=== PATIENT | female | born 1935 | race Caucasian/White ===

== ENCOUNTER 2022-10-06 10:55 | Outpatient (AMB) | payer MEDICARE, OTHER, SELFPAY ==
--- NOTE | 2022-10-06 11:07 | MHC.OFFVIS ---
Intake Vital Signs 10/06/22 11:13 Height 5 ft 3.5 in Weight 122 lb BMI 21.3 Intake Visit Reasons: New Pt - Left hip pain Intake Note: Hannah an 86 year old female who presents today as a new patient for an evaluation of left hip pain. Patient reports pain has been present for about a year that has been getting worse the past 6 months. She has constant pain that radiates into her groin and down the lateral aspect of her left leg. She denies any fevers or chills. Finds it difficult to do AODL such as stair use and getting in and out of car. Denies injury. No relief with Tylenol. No previous tx. Allergies codeine Allergy (Unknown, Verified 10/06/22 11:49) Unknown raloxifene [Evista] Allergy (Unknown, Verified 10/06/22 11:49) Unknown Hydrocodone Bitartrate Allergy (Unknown, Uncoded 10/06/22 11:49) Unknown Codeine Phosphate Adverse Reaction (Unknown, Uncoded 10/06/22 11:49) nausea Medication List - Last Reconciled 10/06/22 by Tre Gamez MD apixaban (Eliquis) mg PO atorvastatin mg PO diclofenac sodium 1% grams topical BID losartan 50 mg PO DAILY omeprazole 20 mg PO DAILY verapamil ER 180 mg PO DAILY PFS Social History (Updated 10/06/22 @ 11:21 by Ena Metz Gadiel) Patient Tobacco Use Status: Never used Tobacco Current occupational status: retired Physical Exam Vital Signs: BMI result Body Mass Index 21.3 Const Other: Well-nourished well-developed very friendly female awake alert and oriented x3 in no acute distress Extrem Other: Bilateral lower extremity examination shows good capillary refill, no skin lesions noted, normal sensation light touch Left hip examination shows mild to moderate discomfort with range of motion, tenderness over her greater trochanteric bursa, no overlying skin lesions Office Procedures Joint Injection/Drain Joint Injection/Drain Primary Site: other (Left hip greater trochanteric bursa) Prep: site was prepped using aseptic technique Injected: 40 mg of, Kenalog and 1% plain lidocaine Procedure: The patient tolerated the procedure well Coding 03612 - Large joint Procedure code (CPT) selection complete Results Reviewed Results Reviewed: X-rays of the patient's left hip taken today show severe joint space narrowing, subchondral sclerosis, osteophyte formation, no acute bony abnormalities Assessment & Plan Assessment & Plan (1) Trochanteric bursitis, left hip: Code(s): M70.62 - Trochanteric bursitis, left hip Plan: Ms. Damian presents with left hip pain due to degenerative joint disease as well as greater trochanteric bursitis. I had a lengthy discussion with the patient regarding the treatment options. She wishes to hold off on total hip replacement surgery for as long as possible. I agree with this plan. We did discuss the risks and benefits of a cortisone injection given into her left hip bursa. The patient wished to proceed. She tolerated the injection well. She will continue with her home exercise program. She will follow up with me on an as-needed basis should her symptoms not plateau at an unacceptable level over the next few months. If she fails continued non operative treatments we will further discuss the risks and benefits of left total hip replacement surgery. Feel free to call me at any time should questions regarding her orthopedic management arise. Thank you very much for asking me to see this very friendly patient. I spent 22 minutes in reviewing the patient's records and imaging studies, seeing the patient and documenting in the medical record. Orders: Orders XR hip LT min 2V Today M25.552 - Pain in left hip AMB Joint Injection/Aspiration Today M70.62 - Trochanteric bursitis, left hip Coding Level of Care Code New Pt Level 2 (73634) Diagnoses Trochanteric bursitis, left hip M70.62 CPT Codes Coding - 67313 Large joint: 28528 - Large joint ([id number])
[2022-10-06 11:13] VITALS: BMI 21.3
== END 2022-10-06 12:14 | disposition home or self-care (01) ==
PROVIDERS: PCP Internal Medicine; Visit Provider Orthopaedic Surgery
DX: M70.62 Trochanteric bursitis, left hip (principal)
CPT/HCPCS: 20610; 99204

== ENCOUNTER 2022-10-06 12:32 | Outpatient (REF) | payer MEDICARE, OTHER, SELFPAY ==
--- NOTE | ~2022-10-06 | XR_ITS ---
EXAMINATION: XR hip LT min 2V CLINICAL INFORMATION: Reason for Exam M25.552 - Pain in left hip COMPARISON: None TECHNIQUE: Two views of the hip. FINDINGS: Chronic appearing fracture of the lateral aspect of the acetabulum. No definite acute fracture or dislocation. Advanced degenerative changes of the hip with complete loss of superolateral joint space and degenerative spurring. Soft tissues are unremarkable. XR/XR hip LT min 2V IMPRESSION: 1. Chronic appearing fracture of the lateral aspect of the acetabulum. No definite acute fracture or dislocation. 2. Advanced degenerative changes of the hip with complete loss of superolateral joint space and degenerative spurring.
== END 2022-10-06 12:33 | disposition home or self-care (01) ==
LOC: HO.HOSX 12:32
PROVIDERS: Visit Provider Orthopaedic Surgery
DX: M70.62 Trochanteric bursitis, left hip (principal)
CPT/HCPCS: 20610; 73502; J3301

== ENCOUNTER 2022-10-20 09:53 | Outpatient (AMB) | payer MEDICARE, OTHER, SELFPAY ==
[2022-10-20 10:21] VITALS: BP 140/76; PULSE 100; TEMP 36.3; O2SAT 100; BMI 22.5
--- NOTE | 2022-10-20 10:21 | MHC.OFFWIV ---
Intake Vital Signs 10/20/22 10:21 Height 5 ft 3 in Weight 127 lb 4 oz BMI 22.5 BP 140/76 H Blood Pressure Location Rt brachial Position Sitting Pulse 100 Pulse Source Pulse Oximeter Temp 97.4 F Temp Source Temporal Artery Scan Pulse Oximetry (%) 100 Oxygen Delivery Method Room Air Intake Visit Reasons: EP, Left lower leg cramping Intake Note: Pt is here c/o lower left leg cramping. Pt states she got a shot in her hip two weeks ago and thinks it may be tied to that. Patient Tobacco Use Status: Never used Tobacco Allergies codeine Allergy (Unknown, Verified 10/20/22 10:48) Unknown raloxifene [Evista] Allergy (Unknown, Verified 10/20/22 10:48) Unknown Hydrocodone Bitartrate Allergy (Unknown, Uncoded 10/20/22 10:48) Unknown Codeine Phosphate Adverse Reaction (Unknown, Uncoded 10/20/22 10:48) nausea Medication List - Last Reconciled 10/20/22 by Surendra Olvera MD apixaban (Eliquis) mg PO atorvastatin mg PO diclofenac sodium 1% grams topical BID losartan 50 mg PO DAILY omeprazole 20 mg PO DAILY verapamil ER 180 mg PO DAILY Do you need a note to return to daycare/school/sports/work: No HPI HPI Comments History of Present Illness Details 86-year-old female presents to the office for a sick visit. Patient is reporting cramps in her left foot for the past 2 weeks. Mostly in the night, around her big toes. Wakes her up from sleep. Around the same time when symptoms started, patient received a steroid injection in her left hip for osteoarthritis. The pain in the hip has resolved. [facility] Social History (Updated 10/06/22 @ 11:21 by AURA Gibson) Patient Tobacco Use Status: Never used Tobacco Current occupational status: retired Physical Exam Vital Signs: Last Vital Signs Temp 97.4 F 10/20/22 10:21 Pulse 100 10/20/22 10:21 BP 140/76 H 10/20/22 10:21 Pulse Ox 100 10/20/22 10:21 Oxygen Delivery Method Room Air 10/20/22 10:21 BMI result Body Mass Index 22.5 Const General: cooperative and healthy appearing Nutritional Appearance: well nourished Orientation/consciousness: patient oriented x3 Limitations: no limitations HEENT Head: Yes normal to inspection Eyes General: appearance normal, both eyes and all related structures Neck Neck: Yes normal visual inspection Chest Chest palpation & inspection: normal palpation of entire chest wall Resp Effort & Inspection: normal respiratory effort Neuro General: patient oriented x3 Assessment & Plan Assessment & Plan (1) Cramping of feet: Code(s): R25.2 - Cramp and spasm Plan: Flexeril added to the regimen. Patient was encouraged to add electrolytes to her fluids. Encouraged her to take magnesium. Coding Level of Care Code New Pt Level 3 (26117) Diagnoses Cramping of feet R25.2
== END 2022-10-20 11:31 | disposition home or self-care (01) ==
PROVIDERS: PCP Internal Medicine; Visit Provider Internal Medicine
DX: R25.2 Cramp and spasm (principal)
CPT/HCPCS: 99203

== ENCOUNTER 2022-10-29 09:33 | Outpatient (AMB) | payer MEDICARE, OTHER, SELFPAY ==
--- NOTE | 2022-10-29 09:54 | MHC.OFFWIV ---
Intake Vital Signs 10/29/22 09:55 Height 5 ft 3 in Weight 128 lb 2 oz BMI 22.7 BP 132/72 Blood Pressure Location Rt brachial Position Sitting Pulse 98 Pulse Source Pulse Oximeter Temp 97.2 F Temp Source Temporal Artery Scan Pulse Oximetry (%) 100 Oxygen Delivery Method Room Air Intake Visit Reasons: EP Leg cramps Intake Note: Pt is here c/o bilateral leg cramps for the past three weeks. Patient Tobacco Use Status: Never used Tobacco Allergies codeine Allergy (Unknown, Verified 10/29/22 09:58) Unknown raloxifene [Evista] Allergy (Unknown, Verified 10/29/22 09:58) Unknown Hydrocodone Bitartrate Allergy (Unknown, Uncoded 10/29/22 09:58) Unknown Codeine Phosphate Adverse Reaction (Unknown, Uncoded 10/29/22 09:58) nausea Do you need a note to return to daycare/school/sports/work: No HPI HPI Comments History of Present Illness Details 86-year-old female that presents for leg cramps. Patient states the past several weeks she has developed leg cramps at night causing her to get up every hour work before his in the go back to sleep. She denies any other symptoms. She was seen and evaluated several days ago for fevers improved prescribed Flexeril which has been helping at night. She is scheduled to see her primary care on the . She is asking for refill prescription to get her to her appointment. [facility] Social History (Updated 10/06/22 @ 11:21 by AURA Gibson) Patient Tobacco Use Status: Never used Tobacco Current occupational status: retired Review of Systems Const All systems reviewed & are unremarkable except as noted in HPI and below Musc Details: Bilateral leg cramping Physical Exam Vital Signs: Last Vital Signs Temp 97.2 F 10/29/22 09:55 Pulse 98 10/29/22 09:55 BP 132/72 10/29/22 09:55 Pulse Ox 100 10/29/22 09:55 Oxygen Delivery Method Room Air 10/29/22 09:55 BMI result Body Mass Index 22.7 Const General: comfortable, no acute distress and alert Extrem Other: lower legs without swelling or edema tenderness Assessment & Plan Assessment & Plan (1) Cramping of feet: Code(s): R25.2 - Cramp and spasm Plan VSS. exam is notable for no lower extremity edema or swelling appreciated no tenderness. Given patient presentation likely suffering from restless legs syndrome. Will have patient discuss this possibility with her primary care upcoming appointment. Will refill prescription. Discharge instructions, follow up and treatment are discussed with patient in my usual fashion. Alternatives in treatment are also discussed. The patient will return for worsening symptoms or as needed. Advised that any labs/imaging ordered will be followed up on and contact made if further treatment needed. Counseled that patient's condition may require further evaluation and/or treatment. Symptoms of concern for worsening disorder discussed in detail in my customary manner. Patient does verbalize understanding of the plan, there are no apparent barriers to communication. The patient is given the opportunity to ask questions and have them answered to his/her satisfaction Medications: New cyclobenzaprine 5 mg PO BEDTIME 13 tabs 0RF R25.2 - Cramp and spasm Coding Level of Care Code Est Pt Level 2 (70320) Diagnoses Cramping of feet R25.2
[2022-10-29 09:55] VITALS: BP 132/72; PULSE 98; TEMP 36.2; O2SAT 100; BMI 22.7
== END 2022-10-29 10:19 | disposition home or self-care (01) ==
PROVIDERS: PCP Internal Medicine; Visit Provider Physician Assistant
DX: R25.2 Cramp and spasm (principal)
CPT/HCPCS: 99212

== ENCOUNTER 2023-01-05 11:03 | Outpatient (AMB) | payer MEDICARE, OTHER, SELFPAY ==
[2023-01-05 11:10] VITALS: BMI 22.7
--- NOTE | 2023-01-05 11:10 | A.OFFVIS_ITS ---
Intake Vital Signs 01/05/23 11:10 Height 5 ft 3 in Weight 128 lb BMI 22.7 Intake Visit Reasons: OV-Left hip injection Intake Note: Hannah 87 yr old female presents today for her follow up visit s/p left hip injection from 10/06/[address] Gamez. States injection lasted for about 2 months and would like to repeat injection today. She was very pleased with the relief she had. She takes Tylenol as needed for discomfort. She denies any weakness in either lower extremity. She denies any fevers or chills. Allergies codeine Allergy (Unknown, Verified 01/05/23 11:13) Unknown raloxifene [Evista] Allergy (Unknown, Verified 01/05/23 11:13) Unknown Hydrocodone Bitartrate Allergy (Unknown, Uncoded 01/05/23 11:13) Unknown Codeine Phosphate Adverse Reaction (Unknown, Uncoded 01/05/23 11:13) nausea Medication List - Last Reconciled 01/05/23 by Tre Gamez MD apixaban (Eliquis) mg PO atorvastatin mg PO cyclobenzaprine 5 mg PO BEDTIME cyclobenzaprine 5 mg PO BEDTIME diclofenac sodium 1% grams topical BID losartan 50 mg PO DAILY omeprazole 20 mg PO DAILY verapamil ER 180 mg PO DAILY [facility] Social History (Updated 10/06/22 @ 11:21 by AURA Gibson) Patient Tobacco Use Status: Never used Tobacco Current occupational status: retired Physical Exam Vital Signs: BMI result Body Mass Index 22.7 Const Other: Well-nourished well-developed very friendly female awake alert and oriented x3 in no acute distress Extrem Other: Bilateral lower extremity examination shows good capillary refill, no skin lesions noted, normal sensation light touch Left hip examination shows slightly decreased range of motion when compared to her right hip, pain with range of motion, tenderness over her bursa, no overlying skin lesions Office Procedures Joint Injection/Drain Joint Injection/Drain Primary Site: other (Left hip greater trochanteric bursa) Prep: site was prepped using aseptic technique Injected: 40 mg of, Kenalog and 1% plain lidocaine Procedure: The patient tolerated the procedure well Coding 47436 - Large joint Procedure code (CPT) selection complete Results Reviewed Results Reviewed: 01/05/23 11:20 Lidocaine HCl 2 % MPF [Xylocaine 2 % MPF] 5 ml .ROUTE .STK-MED ONE Triamcinolone Acetonide [Kenalog-40] 40 mg .ROUTE .STK-MED ONE Assessment & Plan Assessment & Plan (1) Trochanteric bursitis, left hip: Code(s): M70.62 - Trochanteric bursitis, left hip Plan Ms. Damian presents with left hip pain due to degenerative joint disease as well as greater trochanteric bursitis. I had a lengthy discussion with the patient regarding the treatment options. She wishes to hold off on surgery for as long as possible. The risks and benefits of a left hip bursa cortisone injection were discussed at length with the patient. The patient wished to proceed. She tolerated the injection well. She will continue with her home exercise program. She will follow up with me on an as-needed basis should her symptoms not plateau at an unacceptable level over the next few months. Feel free to call me at any time should questions regarding her orthopedic management arise. I spent 22 minutes in reviewing the patient's records and imaging studies, seeing the patient and documenting in the medical record. Orders: Orders AMB Joint Injection/Aspiration Today M70.62 - Trochanteric bursitis, left hip Coding Level of Care Code Est Pt Level 2 (38471) Diagnoses Trochanteric bursitis, left hip M70.62 CPT Codes Coding - 51516 Large joint: 38507 - Large joint ([id number])
== END 2023-01-05 11:45 | disposition home or self-care (01) ==
PROVIDERS: PCP Internal Medicine; Visit Provider Orthopaedic Surgery
DX: M70.62 Trochanteric bursitis, left hip (principal)
CPT/HCPCS: 20610

== ENCOUNTER → 2023-01-05 11:03 | Outpatient (BNVA) | payer MEDICARE, OTHER, SELFPAY | PROVIDERS: PCP Internal Medicine; Visit Provider Orthopaedic Surgery | DX: M70.62 Trochanteric bursitis, left hip (principal) | CPT/HCPCS: 20610; J3301 ==

== ENCOUNTER 2024-01-13 14:27 | Outpatient (AMB) | payer MEDICARE, OTHER, SELFPAY ==
--- NOTE | 2024-01-13 14:31 | MHC.OFFVIS ---
Intake Visit Reasons: OV-Left hip pain-interested injection Intake Note: Hannah is a 88 year old female who presents today for a follow up visit for her left hip pain. Last hip injection was on 01/05/23. She found relief and would like to repeat. She has done physical therapy exercises which aggravated her pain. She has tried Tylenol which gives her minimal relief. She is not able to take anti-inflammatory medicines because she is on Eliquis. Allergies codeine Allergy (Unknown, Verified 01/13/24 14:36) Unknown raloxifene [Evista] Allergy (Unknown, Verified 01/13/24 14:36) Unknown Hydrocodone Bitartrate Allergy (Unknown, Uncoded 01/13/24 14:36) Unknown Codeine Phosphate Adverse Reaction (Unknown, Uncoded 01/13/24 14:36) nausea Medication List - Last Reconciled 01/14/24 by Tre Gamez MD apixaban (Eliquis) mg PO atorvastatin mg PO calcium carbonate-vitamin D3 600 mg-12.5 mcg (500 unit) (Calcium 600 with Vitamin D3) caps PO ONCE furosemide mg PO metoprolol succinate ER 100 mg PO BID omeprazole 20 mg PO DAILY sacubitril-valsartan 49-51 mg (Entresto) 1 tab PO BID PFSH Social History Patient Tobacco Use Status: Never used Tobacco Current occupational status: retired Physical Exam Extrem Other: Left hip examination shows decreased range of motion when compared to her right hip, pain with range of motion, tenderness over her bursa Office Procedures AMB Joint Injection/Aspiration Joint Injection/Aspiration Primary Site: other (Left hip greater trochanteric bursa) Prep: site was prepped using aseptic technique Injected: 40 mg of, DepoMedrol and 1% plain lidocaine Procedure: The patient tolerated the procedure well Coding 57671 - Large joint Procedure code (CPT) selection complete Assessment & Plan Assessment & Plan (1) Trochanteric bursitis, left hip: Code(s): M70.62 - Trochanteric bursitis, left hip Category: Medical Plan Ms. Damian presents with left hip pain due to degenerative joint disease as well as greater trochanteric bursitis. I had a lengthy discussion with the patient regarding the treatment options. The risks and benefits of a left hip bursa cortisone injection were discussed at length with the patient. The patient wished to proceed. She tolerated the injection well. She will continue with her home exercise program. She will contact me prior to her follow-up appointment in 3 months should any questions or concerns arise. Feel free to call me at any time should questions regarding her orthopedic management arise. I spent 22 minutes in reviewing the patient's records and imaging studies, seeing the patient and documenting in the medical record. Orders: Orders AMB Joint Injection/Aspiration 01/13/24 M70.62 - Trochanteric bursitis, left hip Coding Level of Care Code Est Pt Level 3 (07221) Complex EM visit Add On G2211 Diagnoses Trochanteric bursitis, left hip M70.62 CPT Codes Coding - 42589 Large joint: 46948 - Large joint ([id number])
== END 2024-01-13 14:50 | disposition home or self-care (01) ==
LOC: HO.HOS 14:27
PROVIDERS: PCP Internal Medicine; Visit Provider Orthopaedic Surgery
DX: M70.62 Trochanteric bursitis, left hip (principal)
CPT/HCPCS: 20610; 99213

== ENCOUNTER → 2024-01-13 14:27 | Outpatient (BNVA) | payer MEDICARE, OTHER, SELFPAY | PROVIDERS: PCP Internal Medicine; Visit Provider Orthopaedic Surgery | DX: M70.62 Trochanteric bursitis, left hip (principal) | CPT/HCPCS: 20610; 99212; J1010; J2003 ==

== ENCOUNTER 2024-04-13 14:21 | Outpatient (AMB) | payer MEDICARE, OTHER, SELFPAY ==
--- OUTSIDE RECORDS SUMMARY | 2024-04-13 14:23 | XMS_ITS | Encounter Summary ---
Author Organization [facility] [place] [address] Care Team Providers Care Professional Athletes Coach Name Role Phone Courtney Mendiola MD Primary Care Provider [phone] Reason for Visit * Reason Comments Cerumen Impaction Used Debrox x 3 days Encounter Details Date Type Department Care Team (Late st Contact Info) Description 04/10/2024 10:30 AM EST Office Visit Adult Medicine [facility] [address] [place], [place] [phone] Demetrius Zapata PA [address] [place] [address] Bilateral impacted cerumen (Primary Dx); Paroxysmal atrial fibrillation (CMS/HCC) Social History Tobacco Use Types Packs/Day Years Used Date Smoking Tobacco: Never Smokeless Tobacco: Never Alcohol Use Standard Drinks/Week Comments Never 0 (1 standard drink = 0.6 oz pur e alcohol) Comments No Sex and Gender Information Value Date Recorded Sex Assigned at Not on file Legal Sex Female 9:58 AM EST Gender Identity Not on file Sexual Orientation Not on file documented as of this encounter Last Filed Vital Signs Vital Sign Reading Time Taken Comments Blood Pressure 126/74 04/10/2024 10:23 AM EST Pulse 68 04/10/2024 10:23 AM EST Temperature 36.5 ??C (97.7 ??F) 04/10/2024 10:[address] Respiratory Rate 16 04/10/2024 10:23 AM EST Oxygen Saturation 97% 04/10/2024 10:23 AM EST Inhaled Oxygen Concentration - - Weight 58.5 kg (129 lb) 04/10/2024 10:23 AM EST Height 160 cm (5' 3 ) 04/10/2024 10:23 AM EST Body Mass Index 22.85 04/10/2024 10:23 AM EST documented in this encounter Progress Notes * [facility] Benton - 04/10/2024 10:30 AM EST PATIENT'S PCP: Courtney Mendiola MD LAST VISIT IN THIS DEPARTMENT: 04/05/2024 LAST VISIT WITH THIS PROVIDER: Visit date not found Hannah Damian is a 88 y.o. (: 1935) female who presents today for: Chief Complaint Patient presents with Cerumen Impaction Used Debrox x 3 days Assessment/Plan Assessment & Plan 88-year-old female presenting for impacted cerumen. This requires removal by provider due to the patient's anticoagulation status as well as duration of the cerumen impaction. She has impacted cerumen in both ear canals, preventing visualization of the tympanic membrane on the right. With her consent, gentle irrigation was performed in both ears. It took about 400 cc on the right for complete removal of the cerumen as well as intermittent use of a curette. On the left it took about 250 cc with intermittent use of the curette. I was able to remove the entirety of the cerumen from the right earcanal, whereas the left ear canal still had a very small flake of wax which was resistant to both irrigation as well as retreatment with curette. At this point, I think she will be able to go under any hearing testing or any hearing aid fitting that she needs, but if they feel the need for her to come back to have the left ear cleaned once more, I would be happy to try again in a week. After the procedure, there is no evidence of any tympanic membrane perforation or bleeding on examination today. Discussed with patient signs or symptoms that warrant immediate reevaluation. She is asked to call with questions or concerns. She voiced understanding and agree with the above plan. No follow-ups on file. Subjective 88-year-old female presents for cerumen removal. She is anticoagulated with Eliquis due to her history of paroxysmal atrial fibrillation. Review of Systems Constitutional: Negative for chills and fever. HENT: Negative for ear pain, sinus pain and sore throat. Respiratory: Negative for shortness of breath. Cardiovascular: Negative for chest pain. Endocrine: Negative for polydipsia and polyuria. Genitourinary: Negative for flank pain. Musculoskeletal: Negative for joint swelling. Skin: Negative for rash. Neurological: Negative for headaches. Psychiatric/Behavioral: Negative for confusion. The following portions of the patient's chart were reviewed in this encounter and updated as appropriate: Tobacco Allergies Meds Problems Med Hx Surg Hx Fam Hx Objective Visit Vitals BP 126/74 Pulse 68 Temp 36.5 ??C (97.7 ??F) (Temporal) Resp 16 Ht 1.6 m (63 ) Wt 58.5 kg (129 lb) SpO2 97% BMI 22.85 kg/m?? OB Status Hysterectomy Smoking Status Never BSA 1.6 m?? SpO2: 97 % BP Readings from Last 3 Encounters: 04/10/24 126/74 04/05/24 104/58 03/13/24 114/70 Wt Readings from Last 3 Encounters: 04/10/24 58.5 kg (129 lb) 04/05/24 58.7 kg (129 lb 6.4 oz) 03/13/24 59.6 kg (131 lb 6.4 oz) Physical Exam Constitutional: General: She is not in acute distress. Appearance: Normal appearance. HENT: Head: Comments: Bilateral cerumen impaction. Eyes: Pupils: Pupils are equal, round, and reactive to light. Abdominal: Palpations: Abdomen is soft. Musculoskeletal: General: No deformity. Cervical back: Normal range of motion and neck supple. Skin: Coloration: Skin is not jaundiced. Findings: No rash. Neurological: Mental Status: She is alert and oriented to person, place, and time. Mental status is at baseline. Psychiatric: Mood and Affect: Mood normal. Behavior: Behavior normal. Allergies Allergen Reactions Codeine Nausea And Vomiting Hydrocodone vomiting Raloxifene Other Gastro issues. Could not eat Current Outpatient Medications Medication Instructions acetaminophen (TYLENOL) 500 mg tablet 2 Times Daily. apixaban (ELIQUIS) 2.5 mg tablet Take 1 Tablet by mouth 2 Times Daily. atorvastatin (LIPITOR) 40 mg tablet TAKE 1 TABLET EVERY DAY furosemide (LASIX) 20 mg tablet TAKE 1 TABLET EVERY DAY magnesium oxide 500 mg magnesium tablet 1 tablet, oral, Daily metoprolol succinate (TOPROL-XL) 100 mg 24 hr tablet Take 1 Tablet by mouth 2 times daily. omeprazole (PriLOSEC) [address] capsule Take 1 Capsule by mouth daily. rOPINIRole (REQUIP) 0.25 mg tablet TAKE 1 TABLET EVERY DAY sacubitriL-valsartan (Entresto) 49-51 mg per tablet 1 tablet, oral, 2 times daily IMAGING/LABORATORY: None [facility] [address] documented in this encounter Plan of Treatment Upcoming Encounters Date Type Department Care Team (Late st Contact Info) Description 04/24/2024 12:30 PM EST Ancillary Procedure [facility] [address] [facility] [address] [place] [address] 08/03/2024 10:30 AM EDT Office Visit [address] [phone] Adeola Torres PA [address] [place] [id number] 03/08/2025 1:00 PM EST Ancillary Procedure [facility] [address] [facility] [address] [place] [address] documented as of this encounter Visit Diagnoses Diagnosis Bilateral impacted cerumen- Primary Impacted cerumen Paroxysmal atrial fibrillation (CMS/HCC) Atrial fibrillation documented in this encounter Care Teams Professional Athletes Coach Relationship Specialty Start Date End Date Courtney Mendiola MD [address] [place] [id number] PCP - General Internal Medicine 01/10/24 documented as of this encounter
--- OUTSIDE RECORDS SUMMARY | 2024-04-13 14:23 | XMS_ITS | Clinical Summary ---
Author Organization [facility] [address] [facility] Address [address] [place] [address] Phone Care Team Providers Care It Web Development Consultant Name Role Phone Courtney Mendiola MD Primary Care Provider [phone] Allergies Active Allergy Reactions Criticality Noted Date Comments Codeine Nausea And Vomiting 03/03/2006 Hydrocodone 09/03/2016 vomiting Raloxifene Other 10/10/2013 Gastro issues. Could not eat Medications acetaminophen (TYLENOL) 500 mg tablet 2 Times Daily. Activ e furosemide (LASIX) 20 mg tablet TAKE 1 TABLET EVERY DAY 024 Active metoprolol succinate (TOPROL-XL) 100 mg 24 hr tablet Take 1 Tablet by mouth 2 times daily. 024 Active omeprazole (PriLOSEC) [address] capsule Take 1 Capsule by mouth daily. 024 Active rOPINIRole (REQUIP) 0.25 mg tablet TAKE 1 TABLET EVERY DAY 90 tablet 1 024 Active magnesium oxide 500 mg magnesium tabletIndicat ions:Hypomagn esemia Take 1 tablet by mouth 1 (one) time each day. 90 tablet 3 025 Active atorvastatin (LIPITOR) 40 mg tablet TAKE 1 TABLET EVERY DAY 90 tablet 1 025 Active apixaban (ELIQUIS) 2.5 mg tablet Take 1 tablet (2.5 mg total) by mouth 2 (two) times a day. 60 each 3 025 2024 Active sacubitriL-va lsartan (Entresto) 49-51 mg per tablet Take 1 tablet by mouth 2 (two) times a day. 180 tablet 3 Active apixaban (ELIQUIS) 2.5 mg tablet Take 1 Tablet by mouth 2 Times Daily. 2024 Discontinued(R eorder) atorvastatin (LIPITOR) 40 mg tablet TAKE 1 TABLET EVERY DAY 024 2024 Discontinued estradioL (ESTRACE) 0.01 % (0.1 mg/gram) vaginal cream Insert 2 g daily intravaginally for 2 weeks, followed by a maintenance dose of 1 g two to three times per week 024 2024 Discontinued(T herapy completed) magnesium oxide (MAG-OX) 200 mg tablet Take 2 split tablet (400 mg total) by mouth 1 (one) time each day. 2024 Discontinued(D ose adjustment) sacubitriL-va lsartan (Entresto) 49-51 mg per tablet Take 1 tablet by mouth 2 (two) times a day. 180 tablet 3 024 2024 Discontinued(R eorder) carbamide peroxide (DEBROX) 6.5 % otic solution Administer 5-10 drops into each ear 2 (two) times a day for 4 days. 15 mL 025 2024 Active Problems Problem Noted Date Diagnosed Date Other fatigue 03/13/2024 Assessment & Plan (03/13/2024 1:09 PM EST): As above. Orders: Transthoracic echocardiogram (TTE) complete with PRN contrast, bubble, strain, and 3D order panel; Future Thyroid stimulating hormone with reflex to free t4 and free t3; Future CBC and differential; Future B-type natriuretic peptide; Future Hypomagnesemia 03/13/2024 Assessment & Plan (03/13/2024 1:09 PM EST): Continue magnesium oxide 400 mg daily; the patient was encouraged to increase her oral intake of magnesium containing foods. Orders: Magnesium; Future Vulvar burning 01/11/2024 Assessment & Plan (01/11/2024 12:55 PM EST): I explained to Hannah that there is no obvious cause of her burning soreness. I recommended biopsy vs empiric trial of topical steroid. She was interested in biopsy. This was performed today. See below. She will use Vaseline on the biopsy site and labia majora until pathology is determined. Dilated cardiomyopathy 05/25/2023 Assessment & Plan (03/13/2024 1:09 PM EST): The patient's LVEF was as low as 20 to 25% in April 2023; she is now status post AV rosa ablation with biventricular pacemaker placement. Unfortunately, her LV lead had to be turned off; however, her updated echocardiogram from 07/28/2023 shows an improved EF in the range of 50% with improved valvular dysfunction. She remains quite active on a regular basis though does note some increasing fatigue and questionable shortness of breath over time causing her the need to sit and rest for a brief time before being able to carry on. She does relate this to her history of arthritis and advanced age; we discussed other potential influences on this. We will update an echocardiogram for reevaluation of her systolic function as well as her valvular dysfunction. Her most recent metabolic panel was stable and unrevealing; we will update a CBC to rule out anemia and a TSH to rule out underlying thyroid dysregulation. We will also obtain a BNP. We discussed obtaining an ischemic workup but she would like to wait until the results of the echocardiogram are reviewed to see if this provides any insight first. She remains on guideline directed medical therapies for heart failure including metoprolol and Entresto in addition to furosemide and appears to be tolerating these well. We will not make any changes today. I've asked the patient to call if they develop worsening symptoms of heart failure such as increased shortness of breath, new or worsening cough, increased swelling in the legs or ankles, or weight gain of more than 2 pounds in one day or 4 pounds in one week. Orders: B-type natriuretic peptide; Future Thyroid nodule 02/13/2021 Overview (12/20/2023): Isthmus cyst Dyspnea on exertion 06/10/2020 Overview (03/13/2024): Last Assessment & Plan: Assessment & Plan (03/13/2024 1:09 PM EST): As above. Orders: Transthoracic echocardiogram (TTE) complete with PRN contrast, bubble, strain, and 3D order panel; Future CBC and differential; Future B-type natriuretic peptide; Future Tricuspid valve insufficiency 06/10/2020 Overview (12/20/2023): Last Assessment & Plan: She continues with SOB. CT chest planned and BNP. Further recommendations based on clinical course Assessment & Plan (03/13/2024 1:09 PM EST): As above. Vasovagal syncope 06/10/2020 Multiple thyroid nodules 03/25/2020 Mitral valve insufficiency 12/31/2015 Overview (12/20/2023): At least moderate eccentric posteriorly directed MR on echo 07/2020 Last Assessment & Plan: The patient continues with easily induced and frustrating SOB. Her PFTs were mildly abnormal, and so will obtain CT chest without contrast. Will also order BNP with low threshold to start diuretics for symptom management given her MR and TR. Caution will be needed, though, as she is prone to orthostasis, so adjusting her anti-HTN regimen will likely be necessary if diuretic therapy is required. Continue to follow for now. Assessment & Plan (03/13/2024 1:09 PM EST): As above, valvular dysfunction is improved status post AV rosa ablation for atrial fibrillation. No significant murmur noted on exam today which is encouraging. We will reevaluate this on repeat echocardiogram as ordered and continue to readdress this as needed. Paroxysmal atrial fibrillation 11/26/2015 Overview (12/20/2023): Anticoagulated with dose-adjusted apixaban Last Assessment & Plan: The patient now reports loss of taste as well as a tremor in addition to her shortness of breath. Dr. Hensley was concerned previously about possible interstitial lung disease from amiodarone and a CT chest was ordered but never completed. Given her new symptoms, coupled with her ongoing breathlessness we will stop her amiodarone completely. After about a week, will increase her diltiazem to 240 mg once daily. Will obtain a 30-day monitor to evaluate for recurrent atrial fibrillation as she was quite symptomatic with in the past. She is very worried being off of the amiodarone that she will pop back into atrial fibrillation. As such, despite her age, we will refer her to electrophysiology for consideration of alternative strategies of controlling her atrial fibrillation. Continue her dose adjusted apixaban for anticoagulation given her age and weight. Further recommendations based on clinical course. Assessment & Plan (03/13/2024 1:09 PM EST): Now status post AV rosa ablation; rate remains well-controlled on metoprolol. We discussed the risks and benefits of continuing with anticoagulation for cardioembolic prophylaxis and she wishes to continue with current plan. She remains anticoagulated on Eliquis 2.5 mg twice daily which is the appropriate dose for her age of greater than 80 years, weight of less than 60 kg, and creatinine of less than 1.5. She is aware to seek emergent medical attention for any uncontrolled bleeding, signs or symptoms of GI or other internal bleeding, or for any head injury. Cerebrovascular accident (CV A) due to thrombosis of left anterior cerebral artery 08/23/2015 Overview (12/20/2023): Acute left mca territory infarct, no arrythmias. Implantable loop recorder- 10/23/15 Echo- severe diastolic dysfunction, la dialted, mild mr and ar CKD (chronic kidney disease) stage 3, GFR 30-59 ml/min 05/17/2015 Actinic keratosis 10/17/2014 Overview (12/20/2023): Actinic keratosis IBS (irritable bowel syndrome) 03/26/2011 Benign neoplasm of colon 03/19/2011 Overview (12/20/2023): 7 mm rectal polyp at CN 03/19/2011: Mixed hyperplastic and adenomatous polyp. No further screening or follow-up needed. DJD (degenerative joint disease) 03/29/2008 Anxiety 07/11/2007 Mitral valve regurgitation 12/30/2006 Overview (12/20/2023): Echo 03/07- mild to moderate mitral and tricuspid regurgitation and mild pulmonary hypertension in the setting of normal chamber sizes and normal left ventricular systolic function. Esophageal reflux 03/03/2006 Essential hypertension, benign 03/03/2006 Overview (12/20/2023): Last Assessment & Plan: Patient's blood pressure is again somewhat robust in the office and on chart review. We will try somewhat increased dose of diltiazem starting in about a week after her amiodarone washes out to continue to support her heart rate as well as her blood pressure. Instructions were given to the patient in writing. Assessment & Plan (03/13/2024 1:09 PM EST): Blood pressure is favorable on current medical therapy; continue metoprolol, Entresto, and furosemide. Orders: CBC and differential; Future Hypercholesterolemia 03/03/2006 Overview (12/20/2023): Last Assessment & Plan: Reasonably well-controlled lipid profile given her age without known coronary artery disease. Assessment & Plan (03/13/2024 1:09 PM EST): Most recent lipid panel completed 12/10/2023 with an LDL of 92; continue atorvastatin 40 mg daily. Disorder of bone and cartilage 03/03/2006 Overview (12/20/2023): IMO update Encounters Date Type Department Care Team Description 04/10/2024 10:30 AM EST Office Visit Adult Medicine [address] [address] Demetrius Zapata PA Bilateral impacted cerumen (Primary Dx); Paroxysmal atrial fibrillation (CMS/HCC) 04/06/2024 Telephone [facility] Cardiology [facility] [address] [facility] [address] [place] [address] Janelle Zacarias MA Med Refill (Entresto 49-51 ) 04/06/2024 Telephone [facility] Cardiology [facility] [address] [facility] [address] [place] [address] Chemo Hensley MD medication 04/05/2024 2:30 PM EST Office Visit [address] [address] Courtney Mendiola MD Essential hypertension, benign (Primary Dx); Hypercholesterolemia; Gastroesophageal reflux disease without esophagitis; Cerumen debris on tympanic membrane of both ears 04/04/2024 5:25 PM EST Ancillary Procedure [facility] [address] [place] [address] 03/22/2024 Telephone [facility] [address] [place] [address] Chemo Hensley MD Medication Problem 03/21/[address] [address] Courtney Mendiola MD walkin 03/13/2024 11:10 AM EST Office Visit [facility] [address] [place] [address] Dayanara Gates NP Dilated cardiomyopathy (CMS/HCC) (Primary Dx); Status post biventricular cardiac pacemaker insertion; NSVT (nonsustained ventricular tachycardia) (CMS/HCC); Other fatigue; Dyspnea on exertion; Hypomagnesemia; Paroxysmal atrial fibrillation (CMS/HCC); Status post atrioventricular rosa ablation; Mitral valve insufficiency, unspecified etiology; Tricuspid valve insufficiency, unspecified etiology; Essential hypertension, benign; Hypercholesterolemia 03/08/2024 1:00 PM EST Ancillary Procedure [facility] [address] [place] [address] Encounter for adjustment or management of cardiac device 03/07/2024 3:20 PM EST Ancillary Procedure [facility] [address] [place] [address] 02/22/2024 Telephone [facility] [address] [place] [address] Chemo Hensley MD med paperwork 02/08/2024 Telephone [facility] [address] [place] [address] Janelle Zacarias MA Patient Assistance Form (Eliquis ) 02/01/2024 4:25 PM EST Ancillary Procedure [facility] [address] [place] [address] 01/31/2024 Telephone [facility] [address] [place] [address] Dayanara Gates NP 01/24/2024 2:55 PM EST Ancillary Procedure [facility] [address] [place] [address] 01/24/2024 Telephone [facility] [address] [place] [address] Linda Gonzalez PA 01/24/[address] [facility] [address] [place] [address] Chemo Hensley MD application to be filled out 01/17/[address] [facility] [address] [place] [address] Chemo Hensley MD Med Refill from Last 3 Months Surgical History Surgery Date Site/Laterality Comments APPENDECTOMY PROCEDURE: HISTORICAL APPENDECTOMY; COMMENT: as a 12-year-old HYSTERECTOMY PROCEDURE: HISTORICAL HYSTERECTOMY; COMMENT: at the age of 39 CATARACT EXTRACTION PROCEDURE: HISTORICAL CATARACT REMOVAL; COMMENT: at the age of 61 both eyes COLONOSCOPY 03/19/2011 PROCEDURE: HISTORICAL COLONOSCOPY; COMMENT: 7 mm rectal polyp: Mixed hyperplastic and adenomatous polyp. ESOPHAGOGASTRODUODENOSCOPY 03/06/2013 PROCEDURE: SC ESOPHAGOGASTRODUODENOSCOPY TRANSORAL DIAGNOSTIC; COMMENT: normal Medical History Medical History Date Comments Essential hypertension, benign 03/03/2006 D X:Essential hypertension, benign Esophageal reflux 03/03/2006 DX:Esophageal reflux Pure hypercholesterolemia 03/03/2006 DX:Pur e hypercholesterolemia Disorder of bone and cartila ge, unspecified 03/03/2006 DX:Disorder of bone and cart ilage, unspecified Hematuria 10/15/2006 DX:Hematuria; CO MMENT: neg eval by urology in past Actinic keratosis, hx of DX:Acti rona keratosis, hx of Cerebrovascular accident (CV A) due to thrombosis of left anterior cerebral artery (CMS/HCC) 08/23/2015 DX:Cerebrovascular accident (CVA) due to thrombosis of left anterior cerebral artery (HCC) Family History Medical History Relation Name Comments Heart attack Brother age 50 Heart attack Father in his 50s Stroke Father Diabetes Maternal Grandmother Glaucoma Mother Hypertension Mother Breast cancer Neg Hx Relation Name Status Comments Brother Father Maternal Grandmother Mother Social History Tobacco Use Types Packs/Day Years Used Date Smoking Tobacco: Never Smokeless Tobacco: Never Tobacco Cessation:Counseling Given: Not Answered Alcohol Use Standard Drinks/Week Comments Never 0 (1 standard drink = 0.6 oz pur e alcohol) Comments No Sex and Gender Information Value Date Recorded Sex Assigned at Not on file Legal Sex Female 9:58 AM EST Gender Identity Not on file Sexual Orientation Not on file Obstetrics History Para Term AB IAB SAB Ectopic Multiple Livin g Live Births 1 1 Date Outcome GA Total Labor Labor/2nd/3rd Weight Sex Type Anes PTL Sonam A1 A5 Name Clin Last Filed Vital Signs Vital Sign Reading [...] Mass Index 22.85 04/10/2024 10:23 AM EST Plan of Treatment Upcoming Encounters Date Type Department Care Team (Late st Contact Info) Description 04/24/2024 12:30 PM EST Ancillary Procedure [facility] [address] [place] [address] 08/03/2024 10:30 AM EDT Office Visit Adult Medicine [address] [address] Adeola Torres PA [address] [place] [id number] 03/08/2025 1:00 PM EST Ancillary Procedure [facility] Cardiology [facility] [address] [facility] [address] [place] [address] Health Maintenance Due Date Last Done Comments COVID-19 Vaccine (#1) 12/08/1940 Hepatitis A Vaccines (1 of 2 - Risk 2-dose series) 1954 Pneumococcal Vaccine: 50+ Years (1 of 2 - PCV) 1954 Zoster Vaccines (1 of 2) 1954 Hepatitis B Vaccines (1 of 3 - Risk 3-dose series) 1994 RSV Immunization Patients 60+ Years Old (1 - 1-dose 75+ series) 2009 Falls Risk Assessment 02/07/2022 Social Influencers of Health Screening 02/07/2022 Influenza Vaccine (#1) 2023 Depression Screening 03/26/2024 03/26/2023 Medicare Annual Wellness Visit 03/26/2024 03/26/2023 DTaP,Tdap,and Td Vaccines (2 - Td or Tdap) 01/15/2025 01/15/2015 Hypertension/CHF/CAD Annual BMP Blood Test 01/30/2025 01/31/2024, 12/10/2023, 12/10/2023, Additional history exists Osteoporosis Screening (Bone Density Screening) 05/29/2026 05/29/2021, 08/11/2016 Cholesterol Screening (Lipid Panel) 12/09/2028 12/10/2023, 12/10/2023 HIB Vaccines Aged Out No longer eligi ble based on patient's age to complete this topic HPV Vaccines Aged Out No longer eligi ble based on patient's age to complete this topic IPV Vaccines Aged Out No longer eligi ble based on patient's age to complete this topic MMR Vaccines Aged Out No longer eligi ble based on patient's age to complete this topic Meningococcal ACWY Vaccine Aged Out N o longer eligible based on patient's age to complete this topic Meningococcal B Vacine Aged Out No lo nger eligible based on patient's age to complete this topic RSV Immunization Patients Under 20 months Aged Out No longer eligible based on patient's age to complete this topic Varicella Vaccines Aged Out No longer eligible based on patient's age to complete this topic Medical Devices Implanted Type Area International Nurse Device Identifier Shelf Expiration Date Model / Serial / Lot Medt-Card Essie Quad Auditor Supervisor-P [id number] Implanted:08/2023 (Quantity not on file) Cardiac HIDE COOKING OPERATOR-P [employer] - CARDIAC RHYTH-CRDM ESSIE QUAD HIDE COOKING OPERATOR-P [id number] / [id number] / Procedures Procedure Name Priority Date/Time Associated Diagnosis Comments CARDIAC DEVICE CHECK- REMOTE- MURJ Routine 04/04/2024 5:20 PM EST CBC WITH AUTO DIFFERENTIAL Routine 03/13/2024 1:46 PM EST Other fatigue Dyspnea on exertion Essential hypertension, benign THYROID STIMULATING HORMONE WITH REFLEX TO FREE T4 AND FREE T3 Routine 03/13/2024 1:46 PM EST Other fatigue CBC AND DIFFERENTIAL Routine 03/13/2024 1:46 PM EST Other fatigue Dyspnea on exertion Essential hypertension, benign MAGNESIUM Routine 03/13/2024 1:46 PM EST Hypomagnesemia B-TYPE NATRIURETIC PEPTIDE Routine 03/13/2024 1:46 PM EST Dilated cardiomyopathy (CMS/HCC) Other fatigue Dyspnea on exertion CARDIAC DEVICE CHECK- IN CLINIC- MURJ Routine 03/08/2024 1:35 PM EST Encounter for adjustment or management of cardiac device CARDIAC DEVICE CHECK- REMOTE- MURJ Routine 03/07/2024 3:15 PM EST MAGNESIUM Routine 03/02/2024 10:23 AM EST Hypomagnesemia CARDIAC DEVICE CHECK- REMOTE- MURJ Routine 02/01/2024 4:23 PM EST BASIC METABOLIC PANEL Routine 01/31/2024 10:16 AM EST Dilated cardiomyopathy (CMS/HCC) Essential hypertension, benign Paroxysmal atrial fibrillation (CMS/HCC) MAGNESIUM Routine 01/31/2024 10:16 AM EST Dilated cardiomyopathy (CMS/HCC) Essential hypertension, benign Paroxysmal atrial fibrillation (CMS/HCC) CARDIAC DEVICE CHECK- REMOTE- MURJ Routine 01/24/2024 2:51 PM EST LIPID PANEL Routine 12/10/2023 HM DEPRESSION SCREENING Routine 03/26/2023 DXA BONE DENSITY STUDY 1+ SITS AXIAL SKEL Routine 05/29/2021 11:19 AM EDT Other specified disorders of bone density and structure, unspecified site from Last 3 Months or Most Recently Relevant to Health Maintenance Results * Cardiac device check - Remote- MURJ (04/04/2024 5:20 PM EST) Only the most recent of4 resultswithin the time period is included. Date Time Interrogation Session [id number] CV DEVICE CHECK Type Interrogation Session Remote CV DEVICE CHECK Implantable Pulse Generator International Nurse MDT CV DEVICE CHECK Implantable Pulse Generator Type HIDE COOKING OPERATOR-P CV DEVICE CHECK Implantable Pulse Generator Model Essie Quad HIDE COOKING OPERATOR-P [id number] CV DEVICE CHECK Implantable Pulse Generator Serial Number [id number] CV DEVICE CHECK Implantable Pulse Generator Implant Date [id number] CV DEVICE CHECK Battery Remaining Longevity 138.0 CV DEVICE CHECK Battery Voltage 3.040 CV D EVICE CHECK Battery EXECUTIVE MEETING MANAGER Trigger 2.595 CV DEVICE CHECK Battery Status Middle of Service CV DEVICE CHECK Shane Statistic RA Percent Paced 0.00 CV DEVICE CHECK Shane Statistic RV Percent Paced 94.93 CV DEVICE CHECK HIDE COOKING OPERATOR Statistic LV Percent Paced 0.00 CV DEVICE CHECK HIDE COOKING OPERATOR Statistic HIDE COOKING OPERATOR Percent Paced 0.00 CV DEVICE CHECK Lead Channel Impedance Value 3,363 CV DEVICE CHECK Lead Channel Sensing Intrinsic Amplitude 4.125 CV DEVICE CHECK Lead Channel Setting Sensing Sensitivity 0.90 CV DEVICE CHECK Lead Channel Impedance Value 513 CV DEVICE CHECK Lead Channel Pacing Threshold Amplitude 0.750 CV DEVICE CHECK Lead Channel Pacing Threshold Pulse Width 0.4 CV DEVICE CHECK Lead Channel RV Pacing Threshold Date 2024-03-26 CV DEVICE CHECK Lead Channel Setting Pacing Amplitude 2.000 CV DEVICE CHECK Lead Channel Setting Pacing Pulse Width 0.4 CV DEVICE CHECK Lead Channel Impedance Value 304 CV DEVICE CHECK Lead Channel Pacing Threshold Amplitude 0.500 CV DEVICE CHECK Lead Channel Pacing Threshold Pulse Width 1.0 CV DEVICE CHECK Lead Channel Pacing Threshold Date 2023-06-30 CV DEVICE CHECK Shane Setting Mode (NBG Code) VVIR CV DEVICE CHECK Ventricular chambers paced during HIDE COOKING OPERATOR pacing. RVOnly CV DEVICE CHECK Shane Setting Lower Rate Limit 70 CV DEVICE CHECK Shane Setting Maximum Sensor Rate 120 CV DEVICE CHECK Zone Setting Type Category VT CV DEVICE CHECK Rate 150 CV DEVICE CHECK Zone Setting Status ENABLED CV DEVICE CHECK Zone ID [id number] CV DEVICE CHECK Date of Service 2024-06-03 CV DEVICE CHECK Anatomical Region Laterality Modality Device Interroga tion 03/26/2024 11:3 8 PM EST Impressions 04/04/2024 12:59 PM EST Heart Failure Diagnostic: Stable * Heart failure diagnostics assessed through the device * Status: Stable * No overt HF present Narrative Procedure Note Andrzej Perez MD - 04/04/2024 IMPRESSION: Heart Failure Diagnostic: Stable * Heart failure diagnostics assessed through the device * Status: Stable * No overt HF present us Andrzej Perez MD CV IMPLANTABLE CARDIAC DEV ICE PROCEDURES Final Result * Thyroid stimulating hormone with reflex to free t4 and free t3 (03/13/2024 1:46 PM EST) TSH 1.33 0.40 - 4.00 mcIU/mL LAB CHEMISTRY METHOD 03/13/2024 6:59 PM EST [facility] Blood Venous blood specimen / Unknown Venipuncture / Unknown 03/13/2024 1:46 PM EST 03/13/2024 1:46 PM EST Dayanara Gates NP LAB BLOOD ORDERABLES Final Result [facility] [address] [place] [address], [place] [phone] * CBC auto differential (03/13/2024 1:46 PM EST) WBC 8.7 4.8 - 10.8 K/mcL LAB HEMETOLOGY METHOD 03/13/2024 4:53 PM EST [facility] RBC 4.20 3.80 - 4.80 M/mcL LAB HEMETOLOGY METHOD 03/13/2024 4:[address] [facility] Hemoglobin 11.9 11.5 - 16.0 g/dL LAB HEMETOLOGY METHOD 03/13/2024 4:[address] [facility] Hematocrit 37.0 35.0 - 47.0 % LAB HEMETOLOGY METHOD 03/13/2024 4:[address] [facility] MCV 88.7 79.0 - 98.0 FL LAB HEMETOLOGY METHOD 03/13/2024 4:[address] [facility] MCH 28.5 27.0 - 32.0 pcg LAB HEMETOLOGY METHOD 03/13/2024 4:53 PM EST [facility] MCHC 32.2 32.0 - 37.0 g/dL LAB HEMETOLOGY METHOD 03/13/2024 4:[address] [facility] RDW 13.8 11.0 - 15.0 % LAB HEMETOLOGY METHOD 03/13/2024 4:[address] [facility] Platelets 202 130 - 400 K/mcL LAB HEMETOLOGY METHOD 03/13/2024 4:[address] [facility] MPV 10.6 7.0 - 11.0 FL LAB HEMETOLOGY METHOD 03/13/2024 4:[address] [facility] NRBC 0.0 <1.0 % LAB HEMETOLOGY METHOD 03/13/2024 4:[address] [facility] NRBC Absolute 0.00 <0.10 K/mcL LAB HEMETOLOGY METHOD 03/13/2024 4:[address] [facility] Neutrophils Relative 52.8 % LAB HEMETOLOGY METHOD 03/13/2024 4:[address] [facility] Lymphocytes Relative 36.5 % LAB HEMETOLOGY METHOD 03/13/2024 4:[address] [facility] Monocytes Relative 9.2 % LAB HEMETOLOGY METHOD 03/13/2024 4:[address] [facility] Eosinophils Relative 0.9 % LAB HEMETOLOGY METHOD 03/13/2024 4:[address] [facility] Basophils Relative 0.3 % LAB HEMETOLOGY METHOD 03/13/2024 4:[address] [facility] Immature Granulocytes Relative 0.3 % LAB HEMETOLOGY METHOD 03/13/2024 4:[address] [facility] Neutrophils Absolute 4.61 1.50 - 7.00 K/mcL LAB HEMETOLOGY METHOD 03/13/2024 4:[address] [facility] Lymphocytes Absolute 3.19 1.00 - 5.00 K/mcL LAB HEMETOLOGY METHOD 03/13/2024 4:[address] [facility] Monocytes Absolute 0.80 0.20 - 1.00 K/mcL LAB HEMETOLOGY METHOD 03/13/2024 4:[address] [facility] Eosinophils Absolute 0.08 0.00 - 0.50 K/mcL LAB HEMETOLOGY METHOD 03/13/2024 4:[address] [facility] Basophils Absolute 0.03 0.00 - 0.20 K/mcL LAB HEMETOLOGY METHOD 03/13/2024 4:53 PM EST [facility] Immature Granulocytes Absolute 0.03 0.00 - 0.03 K/mcL LAB HEMETOLOGY METHOD 03/13/2024 4:53 PM EST [facility] Blood Venous blood specimen / Unknown Venipuncture / Unknown 03/13/2024 1:46 PM EST 03/13/2024 1:46 PM EST Dayanara Gates GMAT TUTOR LAB BLOOD ORDERABLES Final Result [facility] [address] [place] [address], [place] [phone] * (ABNORMAL) B-type natriuretic peptide (03/13/2024 1:46 PM EST) BNP 313(H) <=100 pcg/mL LAB CHEMISTRY METHOD 03/13/2024 5:45 PM EST [facility] Blood Venous blood specimen / Unknown Venipuncture / Unknown 03/13/2024 1:46 PM EST 03/13/2024 1:46 PM EST Dayanara Gates GMAT TUTOR LAB BLOOD ORDERABLES Final Result Performing Organization Address City/[facility]/ZIP Co de Phone Number [facility] [address] [place] [address], [place] [phone] * (ABNORMAL) Magnesium (03/13/2024 1:46 PM EST) Only the most recent of3 resultswithin the time period is included. Magnesium 1.4(L) 1.9 - 2.6 mg/dL LAB CHEMISTRY METHOD 03/13/2024 6:39 PM EST [facility] Blood Venous blood specimen / Unknown Venipuncture / Unknown 03/13/2024 1:46 PM EST 03/13/2024 1:46 PM EST Dayanara Gates GMAT TUTOR LAB BLOOD ORDERABLES Final Result [facility] [address] [facility] [address] [place] [address], * CARDIAC DEVICE CHECK- IN CLINIC- [facility] [place] (03/08/2024 1:35 PM EST) Date Time Interrogation Session CV DEVICE CHECK Implantable Pulse Generator International Nurse MDT CV DEVICE CHECK Implantable Pulse Generator Type HIDE COOKING OPERATOR-P CV DEVICE CHECK Implantable Pulse Generator Model Essie Quad HIDE COOKING OPERATOR-P [id number] CV DEVICE CHECK Implantable Pulse Generator Serial Number [id number] CV DEVICE CHECK Implantable Pulse Generator Implant Date 20230506 CV DEVICE CHECK Battery Status Middle of Service CV DEVICE CHECK Shane Statistic RA Percent Paced 0.00 CV DEVICE CHECK Shane Statistic RV Percent Paced 96.20 CV DEVICE CHECK Lead Channel Setting Sensing Sensitivity 0.90 CV DEVICE CHECK Lead Channel Impedance Value 494 CV DEVICE CHECK Lead Channel Pacing Threshold Amplitude 0.630 CV DEVICE CHECK Lead Channel Pacing Threshold Pulse Width 0.4 CV DEVICE CHECK Lead Channel RV Pacing Threshold Date 2024-03-08 CV DEVICE CHECK Lead Channel Setting Pacing Amplitude 2.000 CV DEVICE CHECK Lead Channel Setting Pacing Pulse Width 0.4 CV DEVICE CHECK Lead Channel Impedance Value 589 CV DEVICE CHECK Shane Setting Mode (NBG Code) VVIR CV DEVICE CHECK Ventricular chambers paced during HIDE COOKING OPERATOR pacing. RV CV DEVICE CHECK Shane Setting Lower Rate Limit 70 CV DEVICE CHECK Shane Setting Maximum Sensor Rate 120 CV DEVICE CHECK Zone Setting Type Category VT CV DEVICE CHECK Zone Setting Status Monitor CV DEVICE CHECK Zone ID 5 CV DEVICE CHECK Date of Service 2024-05-13 CV DEVICE CHECK Anatomical Region Laterality Modality Device Interroga tion 03/08/2024 Impressions 03/21/2024 8:07 AM EST Normal In-Office: No Events * Normal Device Function * Alerts or events: None * Battery: MOS, 11.5 years * Sensing, impedance and thresholds reviewed and tested * Presenting Rhythm: MANAGER ADOBE 70s * No R waves @ VVI 30 bpm today * Heart Rate Histograms reviewed * Pacing and Detection Parameters were evaluated Heart Failure Diagnostic: Stable * Heart failure diagnostics assessed through the device * Status: Stable * No overt HF present Narrative Procedure Note Andrzej Perez MD - 03/21/2024 IMPRESSION: Normal In-Office: No Events * Normal Device Function * Alerts or events: None * Battery: MOS, 11.5 years * Sensing, impedance and thresholds reviewed and tested * Presenting Rhythm: MANAGER ADOBE 70s * No R waves @ VVI 30 bpm today * Heart Rate Histograms reviewed * Pacing and Detection Parameters were evaluated Heart Failure Diagnostic: Stable * Heart failure diagnostics assessed through the device * Status: Stable * No overt HF present us Order Referral Cardiovascular CV IMPLANTABLE CAR DIAC DEVICE PROCEDURES Final Result * (ABNORMAL) Basic metabolic panel (01/31/2024 10:16 AM EST) Sodium 141 133 - 145 mmol/L LAB CHEMISTRY METHOD 01/31/2024 1:[address] [facility] Potassium 4.0 3.5 - 5.5 mmol/L LAB CHEMISTRY METHOD 01/31/2024 1:[address] [facility] Chloride 109 96 - 110 mmol/L LAB CHEMISTRY METHOD 01/31/2024 1:[address] [facility] CO2 23 21 - 32 mmol/L LAB CHEMISTRY METHOD 01/31/2024 1:[address] [facility] Anion Gap 9 3 - 11 LAB CHEMISTRY METHOD 01/31/2024 1:[address] [facility] Glucose 93 70 - 100 mg/dL LAB CHEMISTRY METHOD 01/31/2024 1:[address] [facility] BUN 17 5 - 25 mg/dL LAB CHEMISTRY METHOD 01/31/2024 1:[address] [facility] Creatinine 0.96 0.50 - 1.10 mg/dL LAB CHEMISTRY METHOD 01/31/2024 1:[address] [facility] eGFR 57(L) >=60 mL/min/1. 73m2 LAB CHEMISTRY METHOD 01/31/2024 1:[address] [facility] Comment:Calculation based on the??Chronic Kidney Disease Epidemiology Collaboration (CKD-EPI) equation refit??without adjustment for race. BUN/Creatinine Ratio 17.7 LAB CHEMISTRY METHOD 01/31/2024 1:41 PM EST [facility] Calcium 8.9 8.5 - 10.5 mg/dL LAB CHEMISTRY METHOD 01/31/2024 1:41 PM EST [facility] Blood Venous blood specimen / Unknown Venipuncture / Unknown 01/31/2024 10:16 AM EST 01/31/2024 10:16 AM EST Dayanara Gates NP LAB BLOOD ORDERABLES Final Result [facility] [address] [place] [address], * Lipid panel (12/10/2023) LDL/HDL Ratio 3 0 - 4 Triglycerides 104 0 - 150 mg/dL Cholesterol 158 0 - 200 mg/dL HDL 46 >=40 mg/dL LDL Cholesterol 92 0 - 100 mg/dL Blood Venous blood specimen / Unknown Historical Provider LAB BLOOD ORDERABLES Margarita l Result * Depression Screening (03/26/2023) Pathologist [facility] Depression Screening Abstracted Historical Provider HEALTH MAINTENANCE Final Result * DXA BONE DENSITY STUDY 1+ SITS AXIAL SKEL (05/29/2021 11:19 AM EDT) Anatomical Region Laterality Modality Bone Densitometr y 02/11/2021 11:2 1 AM EST Narrative 05/29/2021 1:11 PM EDT BONE DENSITY (DEXA) ? Lumbar Spine T-score is -1.5. ?? (SD relative to 20-29 y/o adult) Z-score is 1.3. ??(SD relative to age matched peers) This is considered osteopenia by WHO criteria. Left Hip T-score is -2.4. Z-score is -0.1. This is considered osteopenia by WHO criteria. IMPRESSION: This patient's considered to have osteopenia by WHO criteria. This patient has a 21% risk of major osteoporotic fracture and a 6.5% risk of hip fracture over the next 10 years. (World Health Organization Fracture Risk Assessment) [facility] Department of Internal Medicine recommends using National Osteoporosis Foundation (NOF) guidelines in treatment decisions related to osteoporosis. NOF guidelines suggest considering treatment for postmenopausal women and men aged 50 or older presenting with the following: History of hip or vertebral fracture. T-score = -2.5 (DXA) at the femoral neck, total hip, or spine, after appropriate evaluation to exclude secondary causes. Low bone mass (T-score between -1.0 and -2.5 at the femoral neck or spine) AND a 10-year probability of a hip fracture = 3% OR a 10-year probability of a major osteoporosis-related fracture = 20% based on the [place]-adapted WHO algorithm Please note that all treatment decisions require clinical judgment and consideration of individual patient factors, including patient preferences, co-morbidities, previous drug use, risk factors not captured in the FRAX model (e.g., frailty, falls, vitamin D deficiency, increased bone turnover, interval significant decline in bone density) and possible under- or over-estimation of fracture risk by FRAX. Optional alternative screening schedule based on aaron Varghese., [facility] March 19, 2011 for patients with osteopenia (based on hip BMD T-score) is as follows: * ??advanced osteopenia (T scores -2.00 to -2.49), BMD testing every year * ??moderate osteopenia (T scores -1.50 to -1.99), BMD testing every 5 years mild osteopenia or normal BMD (T scores -1.50 and higher), BMD testing every 15 years Procedure Note Vernell Reilly MD - 02/17/2022 BONE DENSITY (DEXA) Lumbar Spine T-score is -1.5. (SD relative to 20-29 y/o adult) Z-score is 1.3. (SD relative to age matched peers) This is considered osteopenia by WHO criteria. Left Hip T-score is -2.4. Z-score is -0.1. This is considered osteopenia by WHO criteria. IMPRESSION: This patient's considered to have osteopenia by WHO criteria. This patienthas a 21% risk of major osteoporotic fracture and a 6.5% risk of hip fracture over the next10 years. (World Health Organization Fracture Risk Assessment) [facility] Department of Internal Medicine recommendsusing National Osteoporosis Foundation (NOF) guidelines in treatment decisions related toosteoporosis. NOF guidelines suggest considering treatment for postmenopausal women and menaged 50 or older presenting with the following: History of hip or vertebral fracture. T-score = -2.5 (DXA) at the femoral neck, total hip, or spine, afterappropriate evaluation to exclude secondary causes. Low bone mass (T-score between -1.0 and -2.5 at the femoral neck or spine)AND a 10-year probability of a hip fracture = 3% OR a 10-year probability of a majorosteoporosis-related fracture = 20% based on the [place]-adapted WHO algorithm Please note that all treatment decisions require clinical judgment andconsideration of individual patient factors, including patient preferences, co- morbidities,previous drug use, risk factors not captured in the FRAX model (e.g., frailty, falls, vitaminD deficiency, increased bone turnover, interval significant decline in bone density) andpossible under- or over-estimation of fracture risk by FRAX. Optional alternative screening schedule based on og Varghese al., NEJMJanuary 2011 for patients with osteopenia (based on hip BMD T-score) is as follows: * advanced osteopenia (T scores -2.00 to -2.49), BMD testing every year * moderate osteopenia (T scores -1.50 to -1.99), BMD testing every 5years mild osteopenia or normal BMD (T scores -1.50 and higher), BMD testingevery 15 years Katharine FELIX Dayna DXA PROCEDURES Final Result from Last 3 Months or Most Recently Relevant to Health Maintenance Insurance MEDICARE [facility] Advance Directives Documents on File Type Date Recorded Patient Production Supervisor Trainee Expl anation Health Care Decision (hx) 08/07/2015 AD MATHIS DIRECTIVE Health Care Decision (hx) 08/07/2015 AD MATHIS DIRECTIVE Health Care Decision (hx) 08/07/2015 AD MATHIS DIRECTIVE Health Care Decision (hx) 08/07/2015 AD MATHIS DIRECTIVE Health Care Decision (hx) 08/07/2015 AD MATHIS DIRECTIVE Health Care Decision (hx) 08/07/2015 AD MATHIS DIRECTIVE Health Care Decision (hx) 08/07/2015 AD MATHIS DIRECTIVE Health Care Decision (hx) 08/07/2015 AD MATHIS DIRECTIVE Health Care Decision (hx) 08/07/2015 AD MATHIS DIRECTIVE Health Care Decision (hx) 08/07/2015 AD MATHIS DIRECTIVE Care Teams It Web Development Consultant Relationship Specialty Start Date End Date Courtney Mendiola MD [address] [place] [id number] PCP - General Internal Medicine 01/10/24
--- OUTSIDE RECORDS SUMMARY | 2024-04-13 14:23 | XMS_ITS | Data Portability ---
Author Organization ISIDRO Rucker s, [facility] Address [address] [place] [address] Assessment No assessment recorded. Plan of Treatment Reminders Order Date Submit Date Provider Last Modified By Organization Details Last Modified Time Details Appointments None recorded. Lab rapid strep group A, throat 2022 023 [email or web address] [facility] [address] [place], [address], 3 11:04:02 streptococc us group A, culture, throat 2022 023 ELLABELL [facility], [address] [place] [address], [place], [address], 3 06:08:06 Referral None recorded. Procedures None recorded. Surgeries None recorded. Imaging None recorded. Medication Orders docusate sodium 100 mg capsule 2022 023 ELLABELL [place] [facility], [address] [place], [address], 3 11:10:56 amoxicillin 875 mg tablet 2022 023 ELLABELL [place] [facility], [address] [place], [address], 3 11:04:04 benzonatate 100 mg capsule 2022 023 ELLABELL [place] [facility], [address] [place], [address], 3 11:04:04 Patient TargetsNo targets recorded. Patient Instructions Encounter Date Encounter Id Patient Instructions Last Modified By Organization Details Last Modified Time 04/26/2022 [id number] sore throat: car e instructions hany Not available 04/26/2022 11:04:02 Use over the counter medications for your sore throat. Basic lozenges (cough drops) or lozenges with an anesthetic (numbing agent) can be used as needed for quick results; look for the active ingredient, benzocaine, for numbing lozenges (like Cepacol Extra or Chloraseptic Max). Gargling with warm salt water can also relieve pain. Dissolve 1/4 to 1/2 teaspoon in 8-ounces of warm water; gargle and spit salt solution every hour, as needed. Sore throat pain can also be reduced by taking regular doses of acetaminophen (tylenol) or ibuprofen (Advil); if you are given a prescription of PREDNISONE, you may continue to take acetaminophen, but do not take ibuprofen or naprosyn. While this isn't quick, it can significantly reduce pain within an hour after taking. Please switch toothbrush after being on antibiotic for 24 hrs. You should follow-up with your PCP in days, or at any time if your condition does not improve or worsens. Any acute change should prompt a visit to the nearest Emergency Department. . hany Not available 04/26/2022 11:03:56 Reason for Referral None Reported. Results Created Date Observation Date Name Description Value Unit Range Abnormal Flag Note LastModifiedBy Organization Detail LastModifiedTime 04/26/1904/29/2022 BETA STREP GP A CULTU RE beta strep gp A culture NEGATI VE Refer ence Range : Negat yannick Not Available [facility] ([facility]) [address] [facility], [place], [address], 04/29/2022 06:08:06 04/26/1904/26/2022 rapid strep group A, throa t Unknown Analyte Normal = Negati ve Not Available [address] [place] [address], [place], [address], 04/26/2022 10:16:20 04/26/1904/26/2022 rapid strep group A, throa t Unknown Analyte negati ve Not Available [address] [place] [address], [place], [address], 04/26/2022 10:16:20 Result Notes None recorded. Problems Name Problem SNOMED Code Status Onset Date Resolution Date Notes Provider Name and Address Organization Details Recorded Time Gastroesoph ageal reflux disease 387038102 Active 2022 DARLENE ASAD null, [place] - [facility] 10:21:49 Hypertensiv e disorder 04874710 Active 2022 DARLENE ASAD null, PA - [facility] 10:22:06 Hyperlipide angela 23215593 Active 2022 DARLENE ASAD null, PA - [facility] 3 10:22:16 Atrial fibrillatio n 01975090 Active 2022 DARLENE ASAD null, PA - [facility] 3 10:29:47 Cerebrovasc ular accident 531676479 Completed 202204/26/2022 DARLENE ASAD null, PA - [facility] 10:31:48 Problem Notes None recorded. Procedures Surgical History Date Name Laterality Status Provider Name and Address Organization Details Recorded Time Appendectomy completed DARLENE ASAD PA - [facility] 04/26/2022 10:23:00 hysterectomy completed DARLENE ASAD PA - [facility] 04/26/2022 10:23:29 cataract surgery completed DARLENE ASAD PA - [facility] 04/26/2022 10:23:42 Imaging Results None recorded. Procedure Notes None recorded. Medical Equipment None Reported. Allergies Allergen ID Allergen Name Allergen Category Reaction Reaction Severity Criticality Documentation Date Start Date Code Code System Note Provider Name and Address Organization Details Recorded Time 21200506 hydrocodo ne Not available Not available Not available Not available 04/26/2022 5489 RxNorm DARLENE ASAD null, PA - [facility] 3 10:19:10 765844 codeine medicatio n Not available Not available Not available 04/26/2022 2670 RxNorm DARLENE ESPOSITORODOLFO ca PA - [facility] 3 10:19:36 Medications Name Sig Start Date Stop Date Status Note LastModified by Organization Details LastModified Time losartan 50 mg tablet active Not Available Not Available No t Available atorvastati n 40 mg tablet active Not Available Not Available Not Available diltiazem CD 240 mg capsule,ext ended release 24 hr 04/26 completed Not Available Not Available Not Available verapamil ER (SR) 180 mg tablet,exte nded release active Not Available Not Available Not Available amoxicillin 875 mg tablet TAKE ONE TABLET BY MOUTH EVERY 12 HOURS WITH MEALS FOR 10 DAYS active Not Available Not Available No t Available benzonatate 100 mg capsule TAKE ONE CAPSULE BY MOUTH THREE TIMES A DAY NEEDED FOR 7 DAYS active Not Available Not Available No t Available docusate sodium 100 mg capsule TAKE ONE CAPSULE BY MOUTH TWICE A DAY BEFORE MEALS FOR 15 DAYS active Not Available Not Available No t Available omeprazole 20 mg capsule,del ayed release active Not Available Not Available Not Available albuterol sulfate HFA 90 mcg/actuati on aerosol inhaler INHALE 1 PUFF EVERY 6 HOURS NEEDED FOR SHORTNESS OF BREATH OR WHEEZING. USE WITH SPACER CHAMBER. active Not Available Not Available No t Available calcium active Not Available Not Avail able Not Available Vitamin D3 active Not Available Not Av ailable Not Available diclofenac 1 % topical gel active Not Available Not Available Not Available Eliquis 2.5 mg tablet Take 1 tablet twice a day by oral route. active Not Available Not Available No t Available Vitals Date Recorded Body height Body mass index (BMI) Body weight Pain severity - 0-10 verbal numeric rating [Score] - Reported Oxygen saturation Oxygen saturation in Arterial blood by Pulse oximetry Heart rate Respiratory rate Body temperature Systolic blood pressure Diastolic blood pressure Provider Name and Address Organization Details Last Updated DateTime 3 161.29 cm 21.4 kg/m2 40974.8 6 g 8 97 % 97 % 113 /min 18 /min 99.7 [degF] 149 mm[Hg] 105 mm[Hg] DARLENE FELIX - [facility] 3 10:29:19 Social History Question Answer Notes LastModified by Organizat ion Details LastModified Time Tobacco Smoking Status Never Smoker DARLENE ASAD null, [place] - [facility] 04/26/2022 10:22:36 What Is Your Level Of Alcohol Consumption? None Information not available 04/26/2022 Are You Currently Employed? No Information not available 04/26/2022 Do You Use Any Illicit Or Recreational Drugs? No Information not available 04/26/2022 Have You Recently Traveled Abroad? No Information not available 04/26/2022 Do You Or Have You Ever Used Any Other Forms Of Tobacco Or Nicotine? No Information not available 04/26/2022 Sex: Unknown Functional Status None recorded. Mental Status None recorded. Family History Relationship Description Onset Age of this Age Resolved Age Notes LastModified by Organization Details LastModified Time Father No current problems or disability Not available 04/26 10:22:19 Mother No current problems or disability Not available 04/26 10:22:19 Medical History No medical history recorded. Gynecological HistoryNo gynecological history recorded. Obstetrics History GPAL:G 0 P 0 0 0 0 Past Encounters Encounter ID Performer Location Encounter Start Date Encounter Closed Date Diagnosis/Indication Diagnosis SNOMED-CT Code Diagnosis ICD10 Code Diagnosis Note [id number] [facility] [address] [place] [address] 05/19/2016 17:27:49 05/19/2016 18:21:28 [id number] [address] [address] [place] [address] 12/26/2021 09:19:44 12/26/2021 12:06:56 [id number] [address] [address] [place] [address] 04/17/2020 10:57:25 04/17/2020 12:03:52 [id number] [facility] [address] [place] [address] 09/07/2019 14:00:26 09/07/2019 15:22:40 [id number] [address] [place] [address] 02/01/2019 08:34:11 02/01/2019 09:56:24 [id number] [address] [place] [address] 06/26/2015 14:06:37 06/26/2015 15:03:40 [id number] Pedro Jacobs NP [address] [place] [address] 04/26/2022 08:56:33 04/26/2022 11:14:14 Cerebrovascular accident 642403344 I63.9 Acute bact erial pharyngitis 338097997 J02.9 Chronic constipation 236 303251 K59.09 Health Concerns Section Related Observation LastModified by Organization Detai ls LastModified Time None Recorded Concern Status LastModified by Organization Details LastModified Time None Recorded Advance Directives Directive None Recorded Payers Encounter Date Sequence Insurance Name Policy Number Policy Trimble Covered Member ID Trimble Member ID Guarantor Name 02/01/2019 1 [place] [employer] Hannah R Rickie [id number] Hannah Rickie 02/01/2019 2 [employer] - PLAN B (MEDICARE SUPPLEMENT) Hannah R Rickie [id number] Hannah Rickie 09/07/2019 1 [place] [employer] Hannah R Rickie [id number] Hannah Rickie 09/07/2019 2 [employer] - PLAN B (MEDICARE SUPPLEMENT) Hannah R Rickie [id number] Hannah Rickie 04/17/2020 1 [place] [employer] Hannah R Rickie [id number] Hannah Rickie 04/17/2020 2 [employer] - PLAN B (MEDICARE SUPPLEMENT) Hannah R Rickie [id number] Hannah Rickie 12/26/2021 1 [place] [place] Hannah R Rickie [id number] 2 Hannah Rickie 12/26/2021 2 [employer] - PLAN B (MEDICARE SUPPLEMENT) Hannah R Rickie [id number] Hannah Rickie 04/26/2022 1 [place] [employer] Hannah R Rickie [id number] 2 Hannah Rickie 04/26/2022 2 [employer] - PLAN B (MEDICARE SUPPLEMENT) Hannah R Rickie [id number] Hannah Rickie Notes Date Note Type Note Provider Name and Address Organization Details Recorded Time 3 text/html Sore throatReported bypatient.Source of patient informationInformation obtained from patient; Patient arrived at Urgent Care ambulatory; learning styles: auditory Location:throat Severity:mild Quality:sharp; burning Onset/Timin days Associated Symptoms:no sputum production; no shortness of breath; no wheezing; no vomiting; no nausea;sore throat;weakness;hoarseness; coughing;sinus pain/ congestion Context:no foreign travel; non-smoker;sick contact Pedro Jacobs NP [address] [place], [address], [place] - [facility] 04/26/2022 19:36:22 OBGyn Episode No OBEpisode recorded.
--- OUTSIDE RECORDS SUMMARY | 2024-04-13 14:23 | XMS_ITS | Patient Health Record ---
Author Organization [employer] [facility] Address [address] [address] Care Team Providers Care Epic Professional Name Role Phone TONJA SEXTON Unavailable [phone] Allergies Allergen (clinical drug ingredient) Drug/Non Drug Allergy documented on EMR Reaction Allergy Type Onset Date Status Codeine Phosphate nausea and vomiting Drug Allergy Active raloxifene Evista nausea and vomiting Drug Allergy Active Hydrocodone Bitartrate nausea and vomiting Drug Allergy Active Reason For Referral No Information Medications Medication SIG (Take, Route, Frequency, Duration) Notes Start Date End Date Status Vitamin D3 Active Calcium 600 as directed Orally Once a day Active dilTIAZem HCl ER 180 MG 1 capsule Orally Once a day Not-Taking Eliquis 2.5 MG 1 tablet Orally Active Losartan Potassium 50 MG 1 tablet Orally Once a day for 30 day(s) Active Tylenol 1 tab Oral for 14 days Active Lidocaine 5 % 1 application as needed Externally Three times a day prn 07/17/2019 Not-Taking Verapamil HCl ER 180 MG 1 tablet Orally Once a day for 30 day(s) Active Omeprazole 20 MG as directed Orally Once a day Active Albuterol Sulfate 108 (90 Base) MCG/ACT 1 puff as needed Inhalation every 4 hrs Active Vitamin B12 Active Atorvastatin Calcium 40 MG 1 tablet Oral ly Once a day Active hydroCHLOROthiazide 12.5 MG as directed Orally Once a day Not-Taking Amiodarone HCl 200 MG 1 tablet Orally On ce a day Not-Taking Social History Tobacco Use: Social History Observation Description Date Details (start date - stop date) Never Smoker NA - NA Tobacco Use/Smoking Question Answer Notes Are you a nonsmoker Alcohol Screen (Audit-C) Question Answer Notes Did you have a drink containing alcohol in the p ast year? 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
--- OUTSIDE RECORDS SUMMARY | 2024-04-13 14:24 | XMS_ITS | Encounter Summary ---
Author Organization [facility] Address [address] [place] [address] Care Team Providers Care Vfx Artist Name Role Phone Courtney Mendiola MD Primary Care Provider [phone] Reason for Visit * Reason Onset Date Comments medication 04/06/2024 Encounter Details Date Type Department Care Team (Late st Contact Info) Description 04/06/2024 Telephone [facility] - [facility] [address] [facility] [address] [place] [address] Chemo Hensley MD [address] [place] [address] medication Social History Tobacco Use Types Packs/Day Years [...] on file documented as of this encounter Progress Notes * Janelle Zacarias MA - 04/07/2024 2:10 PM EST We have the papers which was copied before we gave them back to Jose Manuel (patient son). I will place in your bin for review. * Janelle Zacarias MA - 04/06/2024 2:44 PM EST I called Jose Manuel myself and he is stating he has a packet that he needs to send to the [facility] in order for them to cover and pay 1yr for her Eliquis as it is not covered thru her insurance. I asked him if he can provide us with the fax number and we can just send the RX and he saidno, because he has to send everything with the paperwork he has. Please advise what we should do or can do for the patient. * Beckie Quinteros - 04/06/2024 1:25 PM EST Patients son Jose Manuel called back again, he is requesting the prescription for Entresto 49-51 mg 1 tabtwice daily, as well. Jose Manuel states Dr. Hensley had signed off on the assistance papers on 02/21/24.Please give him a call back at [phone]. * Beckie Quinteros - 04/06/2024 11:31 AM EST Patients son Jose Manuel called requesting a fax for his mothers Eliquis prescription. The Eliquis 25 mg 90 day supply is not covered through her insurance and she is apart of [facility] assistance. He needs this sent to his person fax at [phone]. documented in this encounter Plan of Treatment Upcoming Encounters Date Type Department Care Team (Late st Contact Info) Description 04/24/2024 12:30 PM EST Ancillary Procedure [facility] - [address] [place] [id number] 08/03/2024 10:30 AM EDT Office Visit Adult Medicine [address] [address] Adeola Torres PA [address] [place] [address] 03/08/2025 1:00 PM EST Ancillary Procedure [facility] - [address] [facility] [address] [place] [phone] documented as of this encounter Visit Diagnoses Not on filedocumented in this encounter Care Teams Vfx Artist Relationship Specialty Start Date End Date Courtney Mendiola MD [address] [place] [phone] PCP - General Internal Medicine 01/10/24 documented as of this encounter
--- OUTSIDE RECORDS SUMMARY | 2024-04-13 14:24 | XMS_ITS | Continuity of Care Document ---
Author Organization [facility] Address [address] [place] [address]- Care Team Providers Care Travel Ot Name Role Phone Maury BEAR, Courtney [id number] Date[facility]s): 03/21/24 - 03/21/[address] [address]- Discharge Disposition: A-D/C Walkout Attending Physician: Not on Staff, Attending MD Admitting Physician: Not on Staff, Admitting MD Referring Physician: Not on Staff, Referring MD Encounter Type: Disch ES Allergies, Adverse Reactions, Alerts Substance Criticality Severity Reaction Reaction Severity Status codeine sweating weakness Ac tive raloxifene unknown Active HYDROcodone weakness Active Immunizations Given and Recorded Vaccine Date Status Refusal Reason tetanus/diphtheria/pertussis, acel(Tdap) 01/15/15 Recorded Medications apixaban 2.5 mg oral tablet 1 tablet = 2.5 mg, By Mouth, 2 times a day, # 60 tablet, 0 Refills, Maintenance, 11/13/20 9:38:00 AMEDT, Tablet, Partial fill upon patient request if the prescription is for a schedule II opioid drug. Start Date: 11/13/20 Status: Ordered Quantity: 60.0 Unit: tablet Repeat number: 1 atorvastatin 40 mg oral tablet 1 tablet = 40 mg, By Mouth, Daily, # 90 tablet, 0 Refills, Maintenance, Tablet, Do Not Route Start Date: 07/05/15 Stop Date: 10/03/15 Status: Ordered Quantity: 90.0 Unit: tablet Repeat number: 1 Calcium 600+D oral tablet 1 tablet, By Mouth, 2 times a day, 0 Refills, Maintenance, 07/03/15 9:27:14 PM EDT Start Date: 07/03/15 Status: Ordered Repeat number: 1 Entresto 24 mg-26 mg oral tablet 2 tablet, By Mouth, 2 times a day, Refill per PCP or Liner Machine Operator, # 60 tablet, 0 Refills, Maintenance, 05/07/23 1:22:00 PM EST, Tablet, [facility] 3, Partial fill upon patient request if the prescription is for a schedule II opioid drug., 160, cm, 05/07/23 13:11:00 EST, Height, 56.3, kg,05/04/23 17:04:00 EST, Dry Weight Start Date: 05/07/23 Status: Ordered Quantity: 60.0 Unit: tablet Repeat number: 1 Lasix 20 mg oral tablet 20 mg, By Mouth, Daily, Refill per PCP or Liner Machine Operator, # 30 tablet, Refills 0, Tot. Refills 0, Maintenance, 05/07/23 1:22:00 PM EST, Route to Pharmacy Electronically, [facility] 3, Partialfill upon patient request if the prescription is for a schedule II opioid drug., 160, cm, 05/07/23 13:11:00 EST, Height, 56.3, kg, 05/04/23 17:04:00 EST, Dry Weight Start Date: 05/07/23 Status: Ordered Quantity: 30.0 Unit: tablet Repeat number: 1 metoprolol 100 mg oral tablet, extended release 100 mg, By Mouth, Daily, Refill per PCP or Liner Machine Operator, # 30 tablet, Refills 0, Tot. Refills 0, Maintenance, 05/07/23 1:22:00 PM EST, Route to Pharmacy Electronically, [facility] 3, Partial fill upon patient request if the prescription is for a schedule II opioid drug., 160, cm, 05/06/2412:11:00 EST, Height, 56.3, kg, 05/04/23 17:04:00 EST, Dry Weight Start Date: 05/07/23 Status: Ordered Quantity: 30.0 Unit: tablet Repeat number: 1 omeprazole 20 mg oral enteric coated capsule 1 capsule = 20 mg, By Mouth, Daily, 0 Refills, Maintenance, 07/03/15 9:24:18 PM EDT Start Date: 07/03/15 Status: Ordered Repeat number: 1 rOPINIRole 0.25 mg oral tablet 1 tablet = 0.25 mg, By Mouth, Daily, # 270 tablet, 0 Refills, Maintenance, 08/10/23 10:56:00 AM EDT,Tablet, Partial fill upon patient request if the prescription is for a schedule II opioid drug. 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 Active GERD (gastroesophageal reflux disease) Confirmed Active H/O ischemic left MCA stroke Confirmed Active Hyperlipidemia Confirmed Active Hypogeusia Confirmed Active Anticoagulant long-term use Confirmed Active Mild tricuspid insufficiency Confirmed Active Mitral valve insufficiency Confirmed Active Multiple thyroid nodules Confirmed Active Osteopenia Confirmed Active Tremor Confirmed Active Tubular adenoma of colon Confirmed Active Vegetarian diet Confirmed Active 1Problem added by Discern Expert Results Radiology Reports * Exam Date Time Procedure Performing Provider Status 03/21/24 4:19 PM Chest 2 Views Frontal and Lat Karen Harris; Renetta (Verified) Notes: (Chest 2 Views Frontal and Lat) Reason For Exam: Chest Pain;Other: RESULT: Chest 2 Views Frontal and Lat Examination: Chest performed on 03/21/2024. History: Shortness of breath Findings: Frontal and lateral views of the chest are compared to a prior study dated 05/07/2023. Pacer is present. The cardiac and mediastinal silhouettes are within normal limits. The lungs are clear. The osseous and soft tissue structures are unremarkable. Impression: There is no acute cardiopulmonary disease. WSN: [id number] Ordering Physician: Peewee De La Cruz Dictated By: Diana Rosenberg MD Dictated Date/Time: 03/21/24 4:32 pm Reviewed By: Diana Rosenberg MD Signed By: Diana Rosenberg MD Signed Date/Time: 03/21/24 4:32 pm Transcribed By: JEANETTE Transcribed Date/Time: 03/21/24 4:31 pm Vital Signs Most recent to oldest [Reference Range]: 1 2 3 Height 160 cm (03/21/24 5:26 PM) 160 cm (03/21/24 3:27 PM) 160 cm (03/21/24 2:56 PM) Oxygen Saturation [94-100 %] 100 % (03/21/24 5:26 PM) 100 % (03/21/24 2:43 PM) Pulse Rate [55-90 bpm] 72 bpm (03/21/24 5:26 PM) 75 bpm 1 (03/21/24 2:43 PM) Blood Pressure [90-138/55-84 mm Hg] 125/66mm Hg (03/21/24 5:26 PM) 129/77mm Hg (03/21/24 2:43 PM) Respiratory Rate [16-30 br/min] 16 br/min (03/21/24 5:26 PM) 18 br/min (03/21/24 2:43 PM) Temperature [96.8-100.4 DegF] 98 DegF (03/21/24 5:26 PM) 97.5 DegF (03/21/24 2:56 PM) Mode of Delivery (Oxygen) Room air (03/21/24 5:26 PM) Room air (03/21/24 2:43 PM) Blood pressure sites Arm, left (03/21/24 5:26 PM) Arm, left (03/21/24 2:43 PM) Temperature Route Oral (03/21/24 5:26 PM) Oral (03/21/24 2:56 PM) 1Result Comment: pt refused temp due to adgitation. pt is also unsure of wt Social History Social History Type Response Smoking Status Never smoker entered on: 07/03/15 Sex Sex Representation Female (finding) EKG study * Event Display: ECG 12-Lead Authored Date: Please click on pdf link to open report * Event Display: ECG 12-Lead Authored Date: Ventricular Rate: 77 BPM Atrial Rate: 75 BPM QRS Duration: 152 ms Q-T Interval: 450 ms QTC Calculation(Bazett): 509 ms R Mantee: -55 degrees T Mantee: 4 degrees Ventricular-paced rhythm Abnormal ECG When compared with ECG of 09-Aug-2023 18:57, Vent. rate has increased by 5 bpm Confirmed by Ronny Gaytan ([id number]) on 03/21/2024 3:15:49 PM Fairborn: Ronny Gaytan Patient Care team information Care Team Personnel Name: Katlyn De La Paz RN Position: [facility] RN Member Role: Primary Care Nurse Name: Zina Lara RN Position: [facility] ED RN W/OE and Tasks Member Role: Primary Care Nurse Name: Cary Dos Santos RN Position: [facility] RN Member Role: Primary Care Nurse Name: Jacquie Ellis Position: [facility] Outreach Member Role: Lifetime Consulting Physician Name: Kate Brand RN Position: [facility] Onco RN Member Role: Primary Care Nurse Name: Sandra Combs RN Position: [facility] RN Member Role: Primary Care Nurse Name: Ailyn Schaefer RN Position: [facility] RN Member Role: Primary Care Nurse Name: Tonja Cole RN Position: [facility] RN Member Role: Primary Care Nurse Name: Tee Nunez RN Position: [facility] RN Member Role: Primary Care Nurse Name: Courtney Mendiola MD Position: Reference Physician Member Role: PCP Address: [address] [place] [address] Telecom: Name: Abby Hardy LPN Position: [facility] RN Member Role: Primary Care Nurse Name: Sonu Hernández RN Position: [facility] RN Member Role: Primary Care Nurse Care Team Related Persons Name: JOHN SCOTT Insurance Providers Guarantor name: ARACELIS SONIA Health Plan Information #: 2 Payer: NA Member Number: [id number] Policy Number: NA Group Number: [id number] Health Plan Information #: 1 Payer: MEDICARE PART B OUTPT Member Number: [id number] Policy Number: NA Group Number: NA
--- OUTSIDE RECORDS SUMMARY | 2024-04-13 14:24 | XMS_ITS | Encounter Summary ---
Author Organization [facility] Address [address] [place] [address] Care Team Providers Care Painting Contractor Name Role Phone Courtney Mendiola MD Primary Care Provider [phone] Reason for Visit * Reason Comments Follow-up Encounter Details Date Type Department Care Team ([facility] Contact Info) Description 04/05/2024 2:30 PM EST Office Visit Adult Medicine [address] [phone] Courtney Mendiola MD [address] [place] [address] Essential hypertension, benign (Primary Dx); Hypercholesterolemia ; Gastroesophageal reflux disease without esophagitis; Cerumen debris on tympanic membrane of both ears Social History Tobacco Use Types Packs/Day Years [...] Sign Reading Time Taken Comments Blood Pressure 104/58 04/05/2024 2:39 PM EST Pulse 78 04/05/2024 2:39 PM EST Temperature 36.6 ??C (97.8 ??F) 04/05/2024 2:39 PM ES T Respiratory Rate 14 04/05/2024 2:39 PM EST Oxygen Saturation - - Inhaled Oxygen Concentration - - Weight 58.7 kg (129 lb 6.4 oz) 04/05/2024 2:39 P M EST Height 160 cm (5' 3 ) 04/05/2024 2:39 PM EST Body Mass Index 22.92 04/05/2024 2:39 PM EST documented in this encounter Ordered Prescriptions Prescription Sig Dispense Quantity Refills Last Filled Start Date End Date carbamide peroxide (DEBROX) 6.5 % otic solution Administer 5-10 drops into each ear 2 (two) times a day for 4 days. 15 mL 04/05/2024 documented in this encounter Progress Notes * Courtney Mendiola MD - 04/05/2024 2:30 PM EST Images from the original note were not included. CHIEF COMPLAINT: Follow-up IDENTIFIER: Hannah Damian is a 88 y.o. old female. 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 Patient was advised to go to the ER, patient was transferred via EMS. Patient underwent blood work at the ER WBC 4.8, hemoglobin 12.3, platelet 176, sodium 141, potassium 4, creatinine 1, AST/ALT 23/11, high-sensitivity troponin 10/25, proBNP 974. Patient underwent chest x-ray which did not show any acute cardiopulmonary disease. Patient underwent EKG which showed a ventricular paced rhythm. Patient left AMA from ER Patient presents for follow up, she states that feels better, reports that shortness of breath and weakness has resolved,patient states that she is back to baseline. She denies chest pain, shortness of breath, orthopnea or PND. She reports that she likely had a cold at that time but she is over thesymptoms at this point. Her weight is stable. She is able to talk in full and complete sentences. She she has an appointment to get her hearing checked but was found to have cerumen in both ears and was advised removal. She has appointment with [facility] for osteoarthritis. 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 ([facility]) 08/23/2015 CKD (chronic kidney disease) stage 3, GFR 30-59 ml/min ([facility]) 05/17/2015 Actinic keratosis 10/17/2014 IBS (irritable bowel syndrome) 03/26/2011 Benign neoplasm of colon 03/19/2011 DJD (degenerative joint disease) 03/29/2008 Anxiety 07/11/2007 Mitral valve regurgitation 12/30/2006 Esophageal reflux 03/03/2006 Essential hypertension, benign 03/03/2006 Hypercholesterolemia 03/03/2006 Disorder of bone and cartilage 03/03/2006 SOCIAL HISTORY: Social History Tobacco Use Smoking status: Never Smokeless tobacco: Never Substance Use Topics Alcohol use: Never FAMILY HISTORY: Family Status Relation Name Status Mother (Not Specified) Father (Not Specified) Brother (Not Specified) MGM (Not Specified) Neg Hx (Not Specified) No partnership data on file Family History Problem Relation Name Age of Onset Glaucoma Mother Hypertension Mother Stroke Father Heart attack Father in his 50s Heart attack Brother age 50 Diabetes Maternal Grandmother Breast cancer Neg Hx ACTIVE MEDICATIONS: Outpatient Medications Marked as Taking for the 04/05/24 encounter (Office Visit) with Courtney Mendiola MD Medication Sig Dispense Refill acetaminophen (TYLENOL) 500 mg tablet 2 Times Daily. apixaban (ELIQUIS) 2.5 mg tablet Take 1 Tablet by mouth 2 Times Daily. atorvastatin (LIPITOR) 40 mg tablet TAKE 1 TABLET EVERY DAY furosemide (LASIX) 20 mg tablet TAKE 1 TABLET EVERY DAY magnesium oxide 500 mg magnesium tablet Take 1 tablet by mouth 1 (one) time each day. 90 tablet 3 metoprolol succinate (TOPROL-XL) 100 mg 24 hr tablet Take 1 Tablet by mouth 2 times daily. omeprazole (PriLOSEC) [address] capsule Take 1 Capsule by mouth daily. rOPINIRole (REQUIP) 0.25 mg tablet TAKE 1 TABLET EVERY DAY 90 tablet 1 sacubitriL-valsartan (Entresto) 49-51 mg per tablet Take 1 tablet by mouth 2 (two) times a day. 180tablet 3 ALLERGIES: Codeine, Hydrocodone, and Raloxifene PHYSICAL EXAM: Blood pressure 104/58, pulse 78, temperature 36.6 ??C (97.8 ??F), temperature source Temporal, resp. rate 14, height 1.6 m (63 ), weight 58.7 kg (129 lb 6.4 oz). Body mass index is 22.92 kg/m??. BMI is 18.5 to 24.9 (within the normal range) and will be followed APPEARANCE: Alert and in no acute distress EYES: PERRLA, conjunctiva and sclera normal EARS: B/L CERUMEN HEART: RRR with normal S1 and S2, no murmurs, no gallops, no JVD appreciated LUNG: clear to auscultation bilaterally EXTREMITIES: Extremities warm and well perfused without clubbing, cyanosis, or edema NEURO: Awake, alert and oriented x 3 and Normal gait LABS: IMPRESSION: 1. Essential hypertension, benign 2. Hypercholesterolemia 3. Gastroesophageal reflux disease without esophagitis 4. Cerumen debris on tympanic membrane of both ears ASSESSMENT/PLAN: Hannah was seen today for follow-up. Diagnoses and all orders for this visit: Essential hypertension, benign (Primary) Hypercholesterolemia Gastroesophageal reflux disease without esophagitis Cerumen debris on tympanic membrane of both ears Other orders - carbamide peroxide (DEBROX) 6.5 % otic solution; Administer 5-10 drops into each ear 2 (two) times a day for 4 days. Plan Patient underwent blood work at the ER WBC 4.8, hemoglobin 12.3, platelet 176, sodium 141, potassium 4, creatinine 1, AST/ALT 23/11, high-sensitivity troponin 12/23, proBNP 974. Patient underwent chest x-ray which did not show any acute cardiopulmonary disease. Patient underwent EKG which showed a ventricular paced rhythm. Patient left AMA from ER Patient presents for follow up, she states that feels better, reports that shortness of breath and weakness has resolved,patient states that she is back to baseline. She denies chest pain, shortness of breath, orthopnea or PND. She reports that she likely had a cold at that time but she is over thesymptoms at this point. Her weight is stable. She is able to talk in full and complete sentences. She has no signs of volume overload on exam today, no lower extremity swelling, no crepitations. She is able to talk in full and complete sentences and does not appear to be lethargic either. HTN/ HFrEF-she is compliant with metoprolol 100 mg twice a day, Entresto. She states that occasionally she will skip her Lasix dose if she is running errands for the day but will resume taking it next day. Patient was again counseled regarding importance of compliance with diuretic, was advised to watch out for symptoms and if she develops any shortness of breath, orthopnea, PND, swelling of her lower extremities or weight change to immediately contact the office. Afib - she is taking apixaban 2.5mg BID HLD -continue with atorvastatin 40 mg daily. Restless leg syndrome - reports improvement of symptoms since starting ropinirole 0.25mg QD. Statesshe has been having fewer episodes during the night, now has episodes once a month. Reports when she stretches at times, her legs cramp up. Reports walking around helps her with the cramping. Labia irritation -she reports that labial irritation has resolved, no longer using the estrogen cream. She she has an appointment to get her hearing checked but was found to have cerumen in both ears and was advised removal. Patient was given prescription for Debrox eardrops, she will come back Wednesdayfor ear cleaning. Of note patient was also examined and questioned by my physician nurses medical assistants phlebotomists student and is in agreement with this. Follow up in about 4 months (around 08/03/2024) for Medication review. No orders of the defined types were placed in this encounter. Recent Results (from the past 672 hour(s)) B-type natriuretic peptide Collection Time: 03/13/24 1:46 PM Result Value Ref Range BNP 313 (H) <=100 pcg/mL Magnesium Collection Time: 03/13/24 1:46 PM Result Value Ref Range Magnesium 1.4 (L) 1.9 - 2.6 mg/dL Thyroid stimulating hormone with reflex to free t4 and free t3 Collection Time: 03/13/24 1:46 PM Result Value Ref Range TSH 1.33 0.40 - 4.00 mcIU/mL CBC auto differential Collection Time: 03/13/24 1:46 PM Result Value Ref Range WBC 8.7 4.8 - 10.8 K/mcL RBC 4.20 3.80 - 4.80 M/mcL Hemoglobin 11.9 11.5 - 16.0 g/dL Hematocrit 37.0 35.0 - 47.0 % MCV 88.7 79.0 - 98.0 FL MCH 28.5 27.0 - 32.0 pcg MCHC 32.2 32.0 - 37.0 g/dL RDW 13.8 11.0 - 15.0 % Platelets 202 130 - 400 K/mcL MPV 10.6 7.0 - 11.0 FL NRBC 0.0 <1.0 % NRBC Absolute 0.00 <0.10 K/mcL Neutrophils Relative 52.8 % Lymphocytes Relative 36.5 % Monocytes Relative 9.2 % Eosinophils Relative 0.9 % Basophils Relative 0.3 % Immature Granulocytes Relative 0.3 % Neutrophils Absolute 4.61 1.50 - 7.00 K/mcL Lymphocytes Absolute 3.19 1.00 - 5.00 K/mcL Monocytes Absolute 0.80 0.20 - 1.00 K/mcL Eosinophils Absolute 0.08 0.00 - 0.50 K/mcL Basophils Absolute 0.03 0.00 - 0.20 K/mcL Immature Granulocytes Absolute 0.03 0.00 - 0.03 K/mcL Cardiac device check - Remote- MURJ Collection Time: 04/04/24 5:20 PM Result Value Ref Range Date Time Interrogation Session [id number] Type Interrogation Session Remote Implantable Pulse Generator Drywall Finisher MDT Implantable Pulse Generator Type PATROL SERGEANT SHERIFF'[employer] OFFICE-P Implantable Pulse Generator Model Essie Quad PATROL SERGEANT SHERIFF'[employer] OFFICE-P [id number] Implantable Pulse Generator Serial Number [id number] Implantable Pulse Generator Implant Date [id number] Battery Remaining Longevity 138.0 Battery Voltage 3.040 Battery FIELD MARKETING REPRESENTATIVE Trigger 2.595 Battery Status Middle of Service Shane Statistic RA Percent Paced 0.00 Shane Statistic RV Percent Paced 94.93 PATROL SERGEANT SHER[employer] OFFICE Statistic LV Percent Paced 0.00 PATROL SERGEANT [employer] OFFICE Statistic PATROL [employer]GEANT [employer] OFFICE Percent Paced 0.00 Lead Channel Impedance Value 3,363 Lead Channel Sensing Intrinsic Amplitude 4.125 Lead Channel Setting Sensing Sensitivity 0.90 Lead Channel Impedance Value 513 Lead Channel Pacing Threshold Amplitude 0.750 Lead Channel Pacing Threshold Pulse Width 0.4 Lead Channel RV Pacing Threshold Date 2024-03-26 Lead Channel Setting Pacing Amplitude 2.000 Lead Channel Setting Pacing Pulse Width 0.4 Lead Channel Impedance Value 304 Lead Channel Pacing Threshold Amplitude 0.500 Lead Channel Pacing Threshold Pulse Width 1.0 Lead Channel Pacing Threshold Date 2023-06-30 Shane Setting Mode (NBG Code) VVIR Ventricular chambers paced during PATROL [employer]GE[employer] OFFICE pacing. RVOnly Shane Setting Lower Rate Limit 70 Shane Setting Maximum Sensor Rate 120 Zone Setting Type Category VT Rate 150 Zone Setting Status ENABLED Zone ID 6 Date of Service 2024-06-03 Courtney Mendiola MD on 04/05/2024 at 3:20 PM EST documented in this encounter Plan of Treatment Upcoming Encounters Date Type Department Care Team (Late st Contact Info) Description 04/24/2024 12:30 PM EST Ancillary Procedure [facility] Cardiology [facility] [address] [facility] 101 [place] [address] 08/03/2024 10:30 AM EDT Office Visit Adult Medicine [address] [phone] Adeola Torres PA [address] [place] [address] 03/08/2025 1:00 PM EST Ancillary Procedure [facility] Cardiology [facility] [address] [facility] 154 [place] [address] documented as of this encounter Visit Diagnoses Diagnosis Essential hypertension, benign- Primary Hypercholesterolemia Pure hypercholesterolemia Gastroesophageal reflux disease without esophagitis Esophageal reflux Cerumen debris on tympanic membrane of both ears documented in this encounter Discontinued Medications Medication Sig Discontinue Reason Start Date End Da te estradioL (ESTRACE) 0.01 % (0.1 mg/gram) vaginal cream Insert 2 g daily intravaginally for 2 weeks, followed by a maintenance dose of 1 g two to three times per week Therapy completed 09/15/2023 04/05/2024 documented as of this encounter Care Teams Painting Contractor Relationship Specialty Start Date End Date Courtney Mendiola MD [address] [place] [address] PCP - General Internal Medicine 01/10/24 documented as of this encounter
--- OUTSIDE RECORDS SUMMARY | 2024-04-13 14:24 | XMS_ITS | Encounter Summary ---
Author Organization [facility] [place] [address] Care Team Providers Care Fan Blade Truer Name Role Phone Courtney Mendiola MD Primary Care Provider [phone] Reason for Visit * Reason Onset Date Comments Med Refill 04/06/2024 Entresto 49-51 Encounter Details Date Type Department Care Team ([facility] Contact Info) Description 04/06/2024 Telephone [facility] - [facility] [address] [facility] 102 [place] [address] Janelle Zacarias MA Med Refill (Entresto 49-51 ) Social History Tobacco Use Types Packs/Day Years [...] as of this encounter Progress Notes * Krystal Powell - 04/13/2024 11:52 AM EST Deny called back, he spoke with [facility] and confirmed the form was received however the incorrectbox was checked off. The form is checked that she is not receiving outpatient care when in fact sheis. [facility] is requesting we call them back to verbally confirm that she is receiving out patient care. Ngozi can be reached at [phone]. Please call deny back at [phone]. * Krystal Powell - 04/11/2024 9:28 AM EST The patients son Deny calling back for an update. Please call him back at [phone]. * Janelle Zacarias MA - 04/06/2024 2:52 PM EST Deny the patient son called and is also asking for an RX to be faxed to him so he may submit to [employer] so his mom can receive her medication which she gets thru the [employer]. He said he already received the prescriber part which you filled out already but forgot to ask for the RX to submit with the paperwork. documented in this encounter Plan of Treatment Upcoming Encounters Date Type Department Care Team (Late st Contact Info) Description 04/24/2024 12:30 PM EST Ancillary Procedure [facility] Cardiology [facility] [address] [facility] 101 [place] [address] 08/03/2024 10:30 AM EDT Office Visit Adult Medicine [address] [phone] Adeola Torres PA [address] [place] [address] 03/08/2025 1:00 PM EST Ancillary Procedure [facility] Cardiology [facility] - [facility] [address] [facility] 154 [place] [address] documented as of this encounter Visit Diagnoses Not on filedocumented in this encounter Care Teams Fan Blade Truer Relationship Specialty Start Date End Date Courtney Mendiola MD [address] [place] [address] PCP - General Internal Medicine 01/10/24 documented as of this encounter
--- OUTSIDE RECORDS SUMMARY | 2024-04-13 14:24 | XMS_ITS | Encounter Summary ---
Author Organization [facility] Address [address] [place] [address] Care Team Providers Care Prototype Model Maker Name Role Phone Courtney Mendiola MD Primary Care Provider [phone] Reason for Visit * Reason Onset Date Comments Medication Problem 03/22/2024 Encounter Details Date Type Department Care Team (Late st Contact Info) Description 03/22/2024 Telephone [facility] - [facility] [address] [facility] [address] [place] [address] Chemo Hensley MD [address] [facility] [address] [place] [address] Medication Problem Social History Tobacco Use Types Packs/Day Years [...] as of this encounter Progress Notes * Yarelis Mckeon MA - 03/22/2024 11:42 AM EST FYI, Patient was sent to [facility] by orders of JACEY Garcia on 03.21.24 See 03.21.24 TC from JACEY. Patient went as walk in to PCP's [facility] for SOB and feeling weak. Pt had EKG, labs, Cxray but left AMA. She states she's fine and simply had a cold. She apologized for not staying but she did not want to wait long hrs at the hospital. She will begin mag ox 500mg daily as you instructed with labs to follow. Hosp recs scanned in * Yarelis Mckeon MA - 03/22/2024 11:05 AM EST Spoke with Hannah she's all set. I spoke with Hilda at the pharmacy and confirmed that oxide its small print on the script. * Shaheed Benavides - 03/22/2024 10:34 AM EST Patient calling in regards to getting wrong prescription ordered for 500 mg magnesium when she was expecting 500 mg magnesium oxide. Please refer to Encounter on 01/30/25 for more information. documented in this encounter Plan of Treatment Upcoming Encounters Date Type Department Care Team (Late st Contact Info) Description 04/24/2024 12:30 PM EST Ancillary Procedure [facility] Cardiology [facility] [address] [facility] [address] [place] [address] 08/03/2024 10:30 AM EDT Office Visit Adult Medicine [address] [phone] Adeola Torres PA [address] [place] [address] 03/08/2025 1:00 PM EST Ancillary Procedure [facility] [address] [facility] 154 [place] [address] documented as of this encounter Visit Diagnoses Not on filedocumented in this encounter Care Teams Prototype Model Maker Relationship Specialty Start Date End Date Courtney Mendiola MD [address] [place] [address] PCP - General Internal Medicine 01/10/24 documented as of this encounter
--- OUTSIDE RECORDS SUMMARY | 2024-04-13 14:24 | XMS_ITS | Encounter Summary ---
Author Organization [facility] Address [address] [place] [address] Care Team Providers Care Traffic Assistant Name Role Phone Courtney Mendiola MD Primary Care Provider [phone] Reason for Visit * Reason Onset Date Comments walkin 03/21/2024 Encounter Details Date Type Department Care Team (Late st Contact Info) Description 03/21/2024 Telephone Adult Medicine [facility] [address] [place] [phone] Courtney Mendiola MD [address] [place] [address] walkin Social History Tobacco Use Types Packs/Day Years [...] as of this encounter Progress Notes * Courtney Mendiola MD - 03/21/2024 2:48 PM EST Patient came in as a walk-in with complaints of feeling weak and short of breath. Patient has history of paroxysmal atrial fibrillation with BiV pacemaker, heart failure, history ofNSVT, hypertension, hyperlipidemia-presents with shortness of breath and weakness. Patient visibly short of breath on conversation, unable to speak in complete sentences. Patient also appears lethargic which is changed from her baseline. Patient recently had blood work done where her BNP was elevated and magnesium was 1.4. Patient was reporting cold symptoms at that time per cardiology however symptoms have continued to progress and now involve shortness of breath, dyspnea while talking patient also reporting weakness,appears lethargic which is a change from her baseline. Given these above findings patient was advised ER evaluation, EMS was called, patient initially declined but I discussed with patient the reason for ER evaluation recommendation specially concern forpulmonary vascular congestion in setting of history of heart failure, recent elevated BNP with progression of symptoms involving shortness of breath. Mildly concern would be hypomagnesemia associatedwith weakness. After discussion patient agreed for ER evaluation, patient requested to be transported to [facility]. Patient requested that her son Jose Manuel was updated, I placed a call to Jose Manuel and informed him regarding above. He will call [facility] to get an update on his mother's clinical condition * Maria C Cespedes RN - 03/21/2024 2:15 PM EST Called at [facility] department to pt. In [place] ext. Pt. C/o weakness, and not feeling well I just need something for my cold Pt. In chair skin cool and dry RR 28 BP 112/68 Pulse 72 regular 02 sat 97-98 Blood sugar 100 Pt. Winded while talking , brought to exam table , ambulance called by [place] and they arrived. Pt. Didnot want to go to ER . I just need something for my cold and I was going to merchandise pickup/receiving associate medication at pharmacy for my low magnesium. Pt. Denies chest pain but continues to feel weak, complexion pale butskin not clammy. PCP in to speak with pt. And reviewing concerns and advising her to be evaluated in the ER. for her sob and low mag. Pt. Agreed reluctantly and was transported to ER via ambulance [facility] for evaluation * Robyn Hernandez - 03/21/2024 1:19 PM EST Patient is here in in [place] Ext states she is weak. documented in this encounter Plan of Treatment Upcoming Encounters Date Type Department Care Team (Late st Contact Info) Description 04/24/2024 12:30 PM EST Ancillary Procedure [facility] - [facility] [address] [facility] [place] [address] [place] [address] 08/03/2024 10:30 AM EDT Office Visit Adult Medicine [facility] [address] [place] [address] Adeola Torres PA [address] [place] [address] 03/08/2025 1:00 PM EST Ancillary Procedure [facility] [address] [facility] 154 [place] [address] documented as of this encounter Visit Diagnoses Not on filedocumented in this encounter Care Teams Traffic Assistant Relationship Specialty Start Date End Date Courtney Mendiola MD [address] [place] [address] PCP - General Internal Medicine 01/10/24 documented as of this encounter
--- OUTSIDE RECORDS SUMMARY | 2024-04-13 14:24 | XMS_ITS | Encounter Summary ---
Author Organization [facility] Address [address] [place] [address] Care Team Providers Care Machine Coremaker Name Role Phone Courtney Mendiola MD Primary Care Provider [phone] Reason for Referral * Imaging (Routine) - Authorized Specialty Diagnoses / Procedures Referred By Contac t Referred To Contact Cardiology Diagnoses Other fatigue Dyspnea on exertion Procedures Transthoracic echocardiogram (TTE) complete with PRN contrast, bubble, strain, and 3D order panel NM TTE W 2D IMAGE COMPLETE W DOPPLER ECHO & COLOR FLOW DOPPLER ECHO NM YOLANDA 2D COMPLETE W/CONTRAST OR W & WO CONTRAST WITH DOPPLER Dayanara Lucas NP [address] [place] [address] Phone: tel: fax: [facility] Referral ID Status Reason Start Date Expiration Date V isits Requested Visits Authorized [id number] Authorized 03/13/2024 03/13/2025 1 1 Reason for Visit * Reason Comments Follow-up Encounter Details Date Type Department Care Team (Late st Contact Info) Description 03/13/2024 11:10 AM EST Office Visit [facility] - [address] [facility] [address] [place] [address] Dayanara Lucas NP [address] [place] [address] Dilated cardiomyopathy (CMS/HCC) (Primary Dx); Status post biventricular cardiac pacemaker insertion; NSVT (nonsustained ventricular tachycardia) (CMS/HCC); Other fatigue; Dyspnea on exertion; Hypomagnesemia; Paroxysmal atrial fibrillation (CMS/HCC); Status post atrioventricular rsoa ablation; Mitral valve insufficiency, unspecified etiology; Tricuspid valve insufficiency, unspecified etiology; Essential hypertension, benign; Hypercholesterolemia Social History Tobacco Use Types Packs/Day Years [...] Sign Reading Time Taken Comments Blood Pressure 114/70 03/13/2024 11:29 AM EST Pulse 74 03/13/2024 11:29 AM EST Temperature - - Respiratory Rate - - Oxygen Saturation 99% 03/13/2024 11:29 AM EST Inhaled Oxygen Concentration - - Weight 59.6 kg (131 lb 6.4 oz) 03/13/2024 11:29 AM EST Height 161.3 cm (5' 3.5 ) 03/13/2024 11:29 AM ES T Body Mass Index 22.91 03/13/2024 11:29 AM EST documented in this encounter Ordered Prescriptions Prescription Sig Dispense Quantity Refills Last Filled Start Date End Date magnesium oxide 500 mg magnesium tabletIndications:H ypomagnesemia Take 1 tablet by mouth 1 (one) time each day. 90 tablet 3 03/17/2024 documented in this encounter Progress Notes * Dayanara Lucas NP - 03/13/2024 11:10 AM ESTAssociated Problem(s): Other fatigue As above. Orders: Transthoracic echocardiogram (TTE) complete with PRN contrast, bubble, strain, and 3D order panel; Future Thyroid stimulating hormone with reflex to free t4 and free t3; Future CBC and differential; Future B-type natriuretic peptide; Future * Dayanara Lucas NP - 03/13/2024 11:10 AM ESTAssociated Problem(s): Dyspnea on exertion As above. Orders: Transthoracic echocardiogram (TTE) complete with PRN contrast, bubble, strain, and 3D order panel; Future CBC and differential; Future B-type natriuretic peptide; Future * Dayanara Lucas NP - 03/13/2024 11:10 AM ESTAssociated Problem(s): Essential hypertension, benign Blood pressure is favorable on current medical therapy; continue metoprolol, Entresto, and furosemide. Orders: CBC and differential; Future * Dayanara Lucas NP - 03/13/2024 11:10 AM ESTAssociated Problem(s): Hypomagnesemia Continue magnesium oxide 400 mg daily; the patient was encouraged to increase her oral intake of magnesium containing foods. Orders: Magnesium; Future * Dayanara Lucas NP - 03/13/2024 11:10 AM ESTAssociated Problem(s): Dilated cardiomyopathy (CMS/HCC) The patient's LVEF was as low as [...] to her history of arthritis and advanced age;we discussed other potential influences on this. We [...] discussed obtaining an ischemic workup but she wouldlike to wait until the results of the echocardiogram are reviewed to see if this provides any insight first. She remains on guideline directed medical therapies for heart failure including metoprololand Entresto in addition to furosemide and appears to be tolerating these well. We will not make any changes today. I've asked the patient to call if they develop worsening symptoms of heart failuresuch as increased shortness of breath, new or worsening cough, increased swelling in the legs or ankles, or weight gain of more than 2 pounds in one day or 4 pounds in one week. Orders: B-type natriuretic peptide; Future * Dayanara Lucas NP - 03/13/2024 11:10 AM ESTAssociated Problem(s): Mitral valve insufficiency As above, valvular dysfunction is improved status post AV rosa ablation for atrial fibrillation. No significant murmur noted on exam today which is encouraging. We will reevaluate this on repeat echocardiogram as ordered and continue to readdress this as needed. * Dayanara Lucas NP - 03/13/2024 11:10 AM ESTAssociated Problem(s): Paroxysmal atrial fibrillation ([facility]/HCC) Now status post AV rosa ablation; rate [...] internal bleeding, or for any head injury. * Dayanara Lucas NP - 03/13/2024 11:10 AM ESTAssociated Problem(s): Tricuspid valve insufficiency As above. * Dayanara Lucas NP - 03/13/2024 11:10 AM ESTAssociated Problem(s): Hypercholesterolemia Most recent lipid panel completed 12/10/2023 with an LDL of 92; continue atorvastatin 40 mg daily. * Dayanara Lucas NP - 03/13/2024 11:10 AM ESTAddended by: MARLENE LUCAS on: 03/17/2024 04:28 PM Modules accepted: Orders * Dayanara Lucas NP - 03/13/2024 11:10 AM EST Images from the original note were not included. [facility] PRIMARY TITLE CHECKER: Chemo Hensley MD PCP: Courtney Mendiola MD HPI: Hannah Damian is a 88 y.o. old female with a past medical history significant for paroxysmal atrial fibrillation status post cardioversion in 2018 and AV node ablation with VITICULTURIST/biventricular pacemaker placement in 04/2023, heart failure with improved EF (as low as 20 to 25% in April 2023), NSVT in 12/2023, hypertension, hyperlipidemia, and previous MCA stroke. The patient was previously taken off both amiodarone and diltiazem due to loss of taste. 2-week ROCT in 01/2022 showed frequent brief episodes of atrial fibrillation and atrial tachycardiaas well as episodes of sinus tachycardia with an occasional pause during sleeping hours. She opted not to try amiodarone again as she felt to give her tremors; she did not want to be admitted for sotalol loading. She was taking Tylenol and felt this helped with her palpitations. Echocardiogram from March 2022 showed an EF of 50 to 55%, aortic valve sclerosis, mild to moderate MR, mild to moderate TR. Previous echocardiogram from July 2020 had shown an EF of 55 to 60%. Echocardiogram was completed 04/20/2023 showing an EF of 35 to 40%. Moderately dilated left atrium and severely dilated right atrium. Dilated right ventricle with mild hypokinesis. She had 3-4+ MR, 3-4+ TR with a dilated IVC and peak PASP of 47 to 52 mmHg. Gradient across the valve was 37 mmHg. She was also noted to be in atrial fibrillation. She was hospitalized in April [address] Perez due to tachycardia and atrial fibrillation. Echocardiogram at that time showed an EF of 20 to 25%, severe mitral and tricuspid regurgitation. He felt she would benefit from AV node ablation and cardiac resynchronization therapy with a biventricular device. She is subsequently underwent implantation of a biventricular [employer] device as well as a successful AV node ablation. Unfortunately, her LV lead was causing PNS which was very uncomfortable; on 06/30/2023, the LV lead was turned off. Her most recent echocardiogram completed 07/28/2023 showed a normal LV chamber size with wall thickness at the upper limits of normal. Abnormal septal motion consistent with RV pacemaker. Mild global hypokinesis with an EF in the range of 50%. Moderately dilated left atrium, dilated right atrium. Normal RV size with reduced global systolic function. Thickened aortic valve without stenosis or insufficiency, mild to moderate 1-2+ AR. Mild to moderate TR; PASP was not elevated. 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 In comparison to previous echocardiograms completed in both April and April, there appeared to be significant improvement in left ventricular function and valvular regurgi tation. In December 2023 she had 2 episodes of nonsustained ventricular tachycardia; she was asymptomatic. Labs revealed hypomagnesemia and she was started on a magnesium supplement. The patient's most recent device check was completed on 02/25/2024 showing FACILITIES OPERATIONS TECHNICIAN 95.7%. Stable impedence. The patient presents today for follow-up of A-fib status post AV rosa ablation, heart failure status post biventricular pacemaker, hypertension, and hyperlipidemia. The patient's biggest concern today is always feeling tired; she fatigues easily and will often have to sit down to rest briefly throughout the course the day and then is able to carry on with her usual activity. She remains quite active at home doing a lot of chores; however, on a rare occasion she will notice that she gets so tired doing something as simple as taking a shower or getting dressed that she needs to sit down and rest. This has been ongoing for a while now but is getting worse over time; she feels as though it is due to her advanced age as well as her various arthritis pains, namely her left hip. She does not really feel as though this fatigue equates to shortness of breath, then goes on to state she does havesome shortness of breath when she is really fatigued. She denies any chest pain or pressure at restor with exertion, but does note an occasional twinge of discomfort, like a toothache, in her left chest just below her device; it will resolve after about 1 minute and usually occurs at rest, not with exertion. No palpitations, peripheral edema, lightheadedness or dizziness, syncope or presyncope, orthopnea or PND. ACTIVE MEDICATIONS: Outpatient Medications Marked as Taking for the 03/13/24 encounter (Office Visit) with Dayanara Lucas NP Medication Sig Dispense Refill acetaminophen (TYLENOL) 500 mg tablet 2 Times Daily. apixaban (ELIQUIS) 2.5 mg tablet Take 1 Tablet by mouth 2 Times Daily. atorvastatin (LIPITOR) 40 mg tablet TAKE 1 TABLET EVERY DAY furosemide (LASIX) 20 mg tablet TAKE 1 TABLET EVERY DAY magnesium oxide (MAG-OX) 200 mg tablet Take 2 split tablet (400 mg total) by mouth 1 (one) time each day. metoprolol succinate (TOPROL-XL) 100 mg 24 hr tablet Take 1 Tablet by mouth 2 times daily. omeprazole (PriLOSEC) [address] capsule Take 1 Capsule by mouth daily. rOPINIRole (REQUIP) 0.25 mg tablet TAKE 1 TABLET EVERY DAY 90 tablet 1 sacubitriL-valsartan (Entresto) 49-51 mg per tablet Take 1 tablet by mouth 2 (two) times a day. 180tablet 3 PAST MEDICAL HISTORY: Patient Active Problem List Diagnosis Actinic keratosis Anxiety Benign neoplasm of colon Cerebrovascular accident (CVA) due to thrombosis of left anterior cerebral artery (CMS/HCC) CKD (chronic kidney disease) stage 3, GFR 30-59 ml/min (CMS/HCC) Dilated cardiomyopathy (CMS/HCC) DJD (degenerative joint disease) Dyspnea on exertion Esophageal reflux Essential hypertension, benign Hypercholesterolemia IBS (irritable bowel syndrome) Mitral valve insufficiency Mitral valve regurgitation Multiple thyroid nodules Disorder of bone and cartilage Paroxysmal atrial fibrillation (CMS/HCC) Thyroid nodule Tricuspid valve insufficiency Vasovagal syncope Vulvar burning Other fatigue Hypomagnesemia ALLERGIES: Allergies Allergen Reactions Codeine Nausea And Vomiting Hydrocodone vomiting Raloxifene Other Gastro issues. Could not eat SOCIAL HISTORY: Social History Tobacco Use Smoking status: Never Smokeless tobacco: Never Substance Use Topics Alcohol use: Never PHYSICAL EXAM: Vitals: 03/13/24 1129 BP: 114/70 BP Location: Left arm Patient Position: Sitting BP Cuff Size: Adult Pulse: 74 SpO2: 99% Weight: 59.6 kg (131 lb 6.4 oz) Height: 1.613 m (63.5 ) Body mass index is 22.91 kg/m??. Physical Exam Vitals reviewed. Constitutional: General: She is not in acute distress. Appearance: Normal appearance. She is not ill-appearing. HENT: Head: Normocephalic and atraumatic. Mouth/Throat: Mouth: Mucous membranes are moist. Eyes: General: No scleral icterus. Extraocular Movements: Extraocular movements intact. Pupils: Pupils are equal, round, and reactive to light. Neck: Vascular: No hepatojugular reflux or JVD. Cardiovascular: Rate and Rhythm: Normal rate and regular rhythm. Pulses: Normal pulses. Heart sounds: Normal heart sounds. No murmur heard. No friction rub. No gallop. Comments: Pacer noted to LACW Pulmonary: Effort: Pulmonary effort is normal. No respiratory distress. Breath sounds: Normal breath sounds. No wheezing, rhonchi or rales. Abdominal: General: There is no distension. Palpations: Abdomen is soft. Tenderness: There is no abdominal tenderness. Musculoskeletal: General: No swelling. Cervical back: Neck supple. Right lower leg: No edema. Left lower leg: No edema. Skin: General: Skin is warm and dry. Neurological: General: No focal deficit present. Mental Status: She is alert and oriented to person, place, and time. Cranial Nerves: No cranial nerve deficit. Gait: Gait normal. Psychiatric: Attention and Perception: Attention normal. Mood and Affect: Mood and affect normal. Behavior: Behavior normal. Thought Content: Thought content normal. EKG: No results found for this or any previous visit (from the past 4464 hour(s)). TESTING: Lab Results Component Value Date GLUCOSE 93 01/31/2024 CALCIUM 8.9 01/31/2024 NA 141 01/31/2024 K 4.0 01/31/2024 CO2 23 01/31/2024 CL 109 01/31/2024 BUN 17 01/31/2024 CREATININE 0.96 01/31/2024 Lab Results Component Value Date CHOL 158 12/10/2023 Lab Results Component Value Date HDL 46 12/10/2023 No results found for: LDLCALC Lab Results Component Value Date TRIG 104 12/10/2023 LDL 92 ASSESSMENT/PLAN: Assessment & Plan Dilated cardiomyopathy (CMS/HCC) The patient's LVEF was as low as [...] to her history of arthritis and advanced age;we discussed other potential influences on this. We [...] discussed obtaining an ischemic workup but she wouldlike to wait until the results of the echocardiogram are reviewed to see if this provides any insight first. She remains on guideline directed medical therapies for heart failure including metoprololand Entresto in addition to furosemide and appears [...] one week. Orders: B-type natriuretic peptide; Future Status post biventricular cardiac pacemaker insertion Continue with in office and remote device checks as per device clinic protocol. NSVT (nonsustained ventricular tachycardia) (CMS/HCC) The patient was noted to be significantly hypomagnesemic with initial episode; we have continued towork on magnesium supplementation that she has had difficulty tolerating this and increased doses beyond 400 mg once daily. We will continue to monitor her device for recurrent episodes and readdressas needed. Other fatigue As above. Orders: Transthoracic echocardiogram (TTE) complete with PRN contrast, bubble, strain, and 3D order panel; Future Thyroid stimulating hormone with reflex to free t4 and free t3; Future CBC and differential; Future B-type natriuretic peptide; Future Dyspnea on exertion As above. Orders: Transthoracic echocardiogram (TTE) complete with PRN contrast, bubble, strain, and 3D order panel; Future CBC and differential; Future B-type natriuretic peptide; Future Hypomagnesemia Continue magnesium oxide 400 mg daily; the patient was encouraged to increase her oral intake of magnesium containing foods. Orders: Magnesium; Future Paroxysmal atrial fibrillation (CMS/HCC) Now status post AV rosa ablation; rate [...] internal bleeding, or for any head injury. Status post atrioventricular rosa ablation Mitral valve insufficiency, unspecified etiology As above, valvular dysfunction is improved status post AV rosa ablation for atrial fibrillation. No significant murmur noted on exam today which is encouraging. We will reevaluate this on repeat echocardiogram as ordered and continue to readdress this as needed. Tricuspid valve insufficiency, unspecified etiology As above. Essential hypertension, benign Blood pressure is favorable on current medical therapy; continue metoprolol, Entresto, and furosemide. Orders: CBC and differential; Future Hypercholesterolemia Most recent lipid panel completed 12/10/2023 with an LDL of 92; continue atorvastatin 40 mg daily. I personally spent a total of 40 minutes, including both iebc-hu-tyrb and ndw-ddmy-xy-face time on the date of the encounter, addressing the above diagnoses. Activities performed in this time include chart review, obtaining / reviewing history, performing amedically necessary evaluation, documentation and counseling including medical decision making of cardiomyopathy, biventricular pacemaker in situ, NSVT, fatigue and dyspnea on exertion, hypomagnesemia, paroxysmal atrial fibrillation status post AV rosa ablation, valvular dysfunction, hypertension,and hypercholesterolemia. Thank you for allowing us to participate in the care of this patient. The patient will follow up in6 months, sooner PRN. As per AHA guidelines and previously established plan of care by Dr. Chemo Hensley MD, we discussed the following today: cardiomyopathy, biventricular pacemaker in situ, NSVT, fatigue and dyspnea on exertion, hypomagnesemia, paroxysmal atrial fibrillation status post AV rosa ablation, valvular dysfunction, hypertension, and hypercholesterolemia. This note was dictated using voice recognition software. Please pardon any grammatical or syntax errors. [facility] documented in this encounter Plan of Treatment Upcoming Encounters Date Type Department Care Team (Late st Contact Info) Description 04/24/2024 12:30 PM EST Ancillary Procedure [facility] - [address] [place] [address] 08/03/2024 10:30 AM EDT Office Visit Adult Medicine [address] [address] Adeola Torres PA [address] [place] [address] 03/08/2025 1:00 PM EST Ancillary Procedure [facility] - [address] [place] [address] Scheduled Orders Name Type Priority Associated Diagnoses Order Schedule Transthoracic echocardiogram (TTE) complete with PRN contrast, bubble, strain, and 3D order panel Echocardiography Routine Other fatigue Dyspnea on exertion 1 Occurrences starting 03/13/2024 until 03/13/2025 Magnesium Lab Routine Hypomagnesemia 1 Occurrences starting 03/17/2024 until 03/17/2025 documented as of this encounter Results * (ABNORMAL) B-type natriuretic peptide (03/13/2024 1:46 PM EST) Pathologist [facility] BNP 313(H) <=100 pcg/mL LAB CHEMISTRY METHOD 03/13/2024 5:45 PM EST [facility] Blood Venous blood specimen / Unknown Venipuncture / Unknown 03/13/2024 1:46 PM EST 03/13/2024 1:46 PM EST Dayanara Lucas NP LAB BLOOD ORDERABLES Final Result Performing Organization Address City/[facility]/ZIP Co de Phone Number [facility] [address] [place] [address], [place] [phone] * (ABNORMAL) Magnesium (03/13/2024 1:46 PM EST) [facility] Magnesium 1.4(L) 1.9 - 2.6 mg/dL LAB CHEMISTRY METHOD 03/13/2024 6:39 PM EST [facility] Blood Venous blood specimen / Unknown Venipuncture / Unknown 03/13/2024 1:46 PM EST 03/13/2024 1:46 PM EST Dayanara Lucas NP LAB BLOOD ORDERABLES Final Result Performing Organization Address City/[facility]/ZIP Co de Phone Number [facility] [address] [place] [address], [place] [phone] * Thyroid stimulating hormone with reflex to free t4 and free t3 (03/13/2024 1:46 PM EST) TSH 1.33 0.40 - 4.00 mcIU/mL LAB CHEMISTRY METHOD 03/13/2024 6:59 PM EST [facility] Blood Venous blood specimen / Unknown Venipuncture / Unknown 03/13/2024 1:46 PM EST 03/13/2024 1:46 PM EST Dayanara Lucas [facility] BLOOD ORDERABLES Final Result [facility] [address] [place] [address], documented in this encounter Visit Diagnoses Diagnosis Dilated cardiomyopathy (CMS/HCC)- Primary Other primary cardiomyopathies Status post biventricular cardiac pacemaker insertion NSVT (nonsustained ventricular tachycardia) (CMS/HCC) Other fatigue Dyspnea on exertion Other dyspnea and respiratory abnormality Hypomagnesemia Disorders of magnesium metabolism Paroxysmal atrial fibrillation (CMS/HCC) Atrial fibrillation Status post atrioventricular rosa ablation Other postprocedural status Mitral valve insufficiency, unspecified etiology Tricuspid valve insufficiency, unspecified etiology Essential hypertension, benign Hypercholesterolemia Pure hypercholesterolemia documented in this encounter Discontinued Medications Medication Sig Discontinue Reason Start Date End Da te amoxicillin (AMOXIL) 500 mg tablet Discontinued by another clinician 09/06/2023 03/13/2024 diclofenac (VOLTAREN) 1 % topical gel APPLY 2 GRAMS TOPICALLY TWICE DAILY NEEDED FOR PAIN Discontinued by another clinician 10/04/2023 03/13/2024 calcium carbonate (CALCIUM 600 ORAL) Take 1 Tablet by mouth 2 times daily. Discontinued by another clinician 03/13/2024 magnesium oxide (MAG-OX) 200 mg tablet Take 2 split tablet (400 mg total) by mouth 1 (one) time each day. Dose adjustment 03/31/2023 03/17/2024 documented as of this encounter Care Teams Machine Coremaker Relationship Specialty Start Date End Date Courtney Mendiola MD [address] [place] [id number] PCP - General Internal Medicine 01/10/24 documented as of this encounter
--- OUTSIDE RECORDS SUMMARY | 2024-04-13 14:24 | XMS_ITS | Encounter Summary ---
Author Organization [facility] Address [address] [place] [address] Care Team Providers Care Border Measurer And Cutter Name Role Phone Courtney Mendiola MD Primary Care Provider Encounter Details Date Type Department Care Team (Late st Contact Info) Description 04/04/2024 5:25 PM EST Ancillary Procedure [facility] Cardiology [facility] - [facility] [address] [facility] 154 [place] [phone] Social History Tobacco Use Types Packs/Day Years [...] on file documented as of this encounter Plan of Treatment Upcoming Encounters Date Type Department Care Team (Late Contact Info) Description 04/24/2024 12:30 PM EST Ancillary Procedure [facility] Cardiology [facility] - [facility] [address] [place] [address] 08/03/2024 10:30 AM EDT Office Visit Adult Medicine [address] [address] Adeola Torres PA [address] [place] [address] 03/08/2025 1:00 PM EST Ancillary Procedure [facility] Cardiology [facility] - [facility] [address] [facility] 154 [place] [address] documented as of this encounter Procedures Procedure Name Priority Date/Time Associated Diagnosis Comments CARDIAC DEVICE CHECK- REMOTE- MURJ Routine 04/04/2024 5:20 PM EST documented in this encounter Results * Cardiac device check - Remote- MURJ (04/04/2024 5:20 PM EST) Date Time Interrogation Session [id number] CV DEVICE CHECK Type Interrogation Session Remote CV DEVICE CHECK Implantable Pulse Generator Bellhop Captain MDT CV DEVICE CHECK Implantable Pulse Generator Type DRILLING CONTRACTOR-P CV DEVICE CHECK Implantable Pulse Generator Model Essie Quad DRILLING CONTRACTOR-P [id number] CV DEVICE CHECK Implantable Pulse Generator Serial Number [id number] CV DEVICE CHECK Implantable Pulse Generator Implant Date 20230506 CV DEVICE CHECK Battery Remaining Longevity 138.0 CV DEVICE CHECK Battery Voltage 3.040 CV D EVICE CHECK Battery BENEFIT SPECIALIST Trigger 2.595 CV DEVICE CHECK Battery Status Middle of Service CV DEVICE CHECK Shane Statistic RA Percent Paced 0.00 CV DEVICE CHECK Shane Statistic RV Percent Paced 94.93 CV DEVICE CHECK DRILLING CONTRACTOR Statistic LV Percent Paced 0.00 CV DEVICE CHECK DRILLING CONTRACTOR Statistic DRILLING CONTRACTOR Percent Paced 0.00 CV DEVICE CHECK Lead [...] CV DEVICE CHECK Ventricular chambers paced during DRILLING CONTRACTOR pacing. RVOnly CV DEVICE CHECK Shane Setting [...] IMPLANTABLE CARDIAC DEV ICE PROCEDURES Final Result documented in this encounter Visit Diagnoses Not on filedocumented in this encounter Care Teams Border Measurer And Cutter Relationship Specialty Start Date End Date Courtney Mendiola MD [address] [place] [address] PCP - General Internal Medicine 01/10/24 documented as of this encounter
[2024-04-13 14:32] VITALS: BMI 22.7
--- NOTE | 2024-04-13 14:32 | MHC.OFFVIS ---
Vital Signs 04/13/24 14:32 Height 5 ft 3 in Weight 128 lb BMI 22.7 Intake Visit Reasons: Left hip pain Intake Note: Hannah is an 88 year old female who presents with complaints of progressively worsening left hip pain. She describes her pain as sharp and severe in nature. Most of the pain is located within her left groin. She has had left hip bursa cortisone injections in the past. The most recent injection gave her minimal relief. She has not had an intra-articular injection. She has tried Tylenol which gives her minimal relief. She is not able to take anti-inflammatory medicines because she is on Eliquis. Allergies codeine Allergy (Unknown, Verified 04/13/24 14:46) Unknown raloxifene [Evista] Allergy (Unknown, Verified 04/13/24 14:46) Unknown Hydrocodone Bitartrate Allergy (Unknown, Uncoded 04/13/24 14:46) Unknown Codeine Phosphate Adverse Reaction (Unknown, Uncoded 04/13/24 14:46) nausea Medication List - Last Reconciled 04/13/24 by Tre Gamez MD apixaban (Eliquis) mg PO atorvastatin mg PO calcium carbonate-vitamin D3 600 mg-12.5 mcg (500 unit) (Calcium with Vit D3) caps PO ONCE furosemide mg PO metoprolol succinate ER 100 mg PO BID omeprazole 20 mg PO DAILY sacubitril-valsartan 49-51 mg (Entresto) 1 tab PO BID PFS Social History Patient Tobacco Use Status: Never used Tobacco Current occupational status: retired Physical Exam Vital Signs: BMI result Body Mass Index 22.7 Const Other: Well-nourished well-developed very friendly female awake alert and oriented x3 in no acute distress Extrem Other: Left hip examination shows decreased range of motion when compared to her right hip, pain with range of motion, no tenderness over her bursa Results Reviewed Results Reviewed: X-rays of the patient's left hip taken previously show joint space narrowing, subchondral sclerosis, no acute bony abnormalities Assessment & Plan Assessment & Plan (1) Arthritis of left hip: Code(s): M16.12 - Unilateral primary osteoarthritis, left hip Category: Medical (2) Left hip pain: Code(s): M25.552 - Pain in left hip Category: Medical Plan Ms. Damian presents with left hip pain due to degenerative joint disease. I had a lengthy discussion with the patient regarding the treatment options. She wishes to hold off on total hip replacement surgery if at all possible. Thus, I will arrange for her to have a follow-up appointment with Dr. Ceballos from the pain management department for possible left hip intra-articular cortisone injection. The patient will follow-up as instructed. Feel free to call me at any time should questions regarding her orthopedic management arise. I spent 22 minutes in reviewing the patient's records and imaging studies, seeing the patient and documenting in the medical record. Orders: Referrals Pain Management Referral M16.12 - Unilateral primary osteoarthritis, left hip Coding Level of Care Code Est Pt Level 3 (03680) Complex EM visit Add On G2211 Diagnoses Arthritis of left hip M16.12 Left hip pain M25.552
== END 2024-04-13 14:54 | disposition home or self-care (01) ==
PROVIDERS: PCP Internal Medicine; Visit Provider Orthopaedic Surgery
DX: M16.12 Unilateral primary osteoarthritis, left hip (principal)
CPT/HCPCS: 99213

== ENCOUNTER → 2024-04-13 14:21 | Outpatient (BNVA) | payer MEDICARE, OTHER, SELFPAY | PROVIDERS: PCP Internal Medicine; Visit Provider Orthopaedic Surgery | DX: M16.12 Unilateral primary osteoarthritis, left hip (principal); M25.552 Pain in left hip | CPT/HCPCS: 99212 ==

== ENCOUNTER 2024-04-28 10:22 | Outpatient (AMB) | payer MEDICARE, OTHER, SELFPAY ==
[2024-04-28 10:26] VITALS: BP 142/68; PULSE 89; RESP 16; O2SAT 96; BMI 22.1
--- NOTE | 2024-04-28 10:26 | MHC.OFFVIS ---
Vital Signs 04/28/24 10:26 Height 5 ft 3 in Weight 125 lb BMI 22.1 BP 142/68 H Blood Pressure Location Lt brachial Position Sitting Respiration 16 Pulse 89 Pulse Source Pulse Oximeter Pulse Oximetry (%) 96 Oxygen Delivery Method Room Air Intake Visit Reasons: Unilateral primary osteoarthritis, left hip Industrial Safety Engineer Required: No Allergies codeine Allergy (Unknown, Verified 04/28/24 10:27) Unknown raloxifene [Evista] Allergy (Unknown, Verified 04/28/24 10:27) Unknown Hydrocodone Bitartrate Allergy (Unknown, Uncoded 04/28/24 10:27) Unknown Medication List - Last Reconciled 04/28/24 by Rocio Covarrubias LPN apixaban (Eliquis) mg PO atorvastatin mg PO calcium carbonate-vitamin D3 600 mg-12.5 mcg (500 unit) (Calcium with Vit D3) caps PO ONCE furosemide mg PO metoprolol succinate ER 100 mg PO BID omeprazole 20 mg PO DAILY sacubitril-valsartan 49-51 mg (Entresto) 1 tab PO BID HPI HPI Unilateral primary osteoarthritis, left hip: Details: History of Present Illness The patient is an 88-year-old female presenting with hip arthritis pain. Her left hip pain, rated 8/10, primarily occurs in the morning and is aggravated by movement, affecting her daily routine and sleep quality. She has been receiving corticosteroid injections with varying success; the last injection was ineffective, administered three months ago. The patient's history includes an ischemic stroke at age 79, for which she is on apixaban (Eliquis) as anticoagulation therapy. Recently, she has developed right thumb pain further affecting her daily activities. Pain Description - Onset: Chronic left hip pain initially alleviated by injections; recent exacerbation with reduced effect from treatment. - Quality: Persistent, intense discomfort rated at 8/10. - Location: Primarily in the left hip and groin area. - Aggravating Factors: Movement, especially in mornings. - Alleviating Factors: Previous corticosteroid injections provided temporary relief. - Impact: Affects daily activities, sleep, and ability to perform tasks like entering/exiting a car. Physical Exam - Appears afebrile. - Alert and oriented. - Mood and affect appropriate. - Follows and participates in conversation appropriately. - Respiratory effort is unlabored. - Able to transition from sit to stand unassisted. - Ambulates with bilaterally normal heel strike and toe off. - Able to stand and walk on toes and heels. Pain Management - Affect: Pain impacts sleep and daily activities, causing distress. - Analgesia: Received past effective corticosteroid injections; current pain at 10/08. - Adverse Effects: Apprehensive due to lack of relief from last injection. - Activities of Daily Living: Pain impairs routine activities, including car entry and sleep. - Aberrant Drug Related Behaviors: None reported. [facility] Social History Patient Tobacco Use Status: Never used Tobacco Current occupational status: retired Physical Exam Vital Signs: Last Vital Signs Pulse 89 04/28/24 10:26 Resp 16 04/28/24 10:26 BP 142/68 H 04/28/24 10:26 Pulse Ox 96 04/28/24 10:26 Oxygen Delivery Method Room Air 04/28/24 10:26 BMI result Body Mass Index 22.1 Assessment & Plan Assessment & Plan (1) Arthritis of left hip: Code(s): M16.12 - Unilateral primary osteoarthritis, left hip Category: Medical Plan Plan We will proceed with a left hip injection under fluoroscopy to precisely address the arthritis pain, employing an arthrogram to ensure accurate delivery. Additionally, I will arrange a referral for her to see a hand specialist to evaluate and manage her right thumb pain. Patient was informed and verbally consented to the use of an ambient scribe for clinic note documentation during this visit. Discussion Notes I discussed with the patient the potential benefits and limitations of a fluoroscopy-guided hip injection to ensure accurate medication delivery, potentially improving outcomes over previous injections. The patient was informed of the risks, including temporary increase in discomfort and need for imaging, but agreed to proceed. We also discussed coordinating care with a hand specialist for her thumb discomfort. Patient Instructions - Follow up for scheduled hip injection under fluoroscopy. - Expect contact from the orthopedics office regarding an appointment with the hand specialist. - Continue anticoagulation with apixaban (Eliquis) as prescribed. - Monitor for any increase in pain or other symptoms. - Use assistive devices as necessary to aid in activities of daily living. - Report immediate concerns or sudden changes in symptoms promptly. Orders: Referrals Hand Surgery Referral M79.644 - Pain in right finger(s) Coding Level of Care Code New Pt Level 4 (62142) Diagnoses Arthritis of left hip M16.12
--- OUTSIDE RECORDS SUMMARY | 2024-04-28 11:39 | XMS_ITS | Encounter Summary ---
Author Organization [facility] [place] [address] Care Team Providers Care Craft Worker Name Role Phone Courtney Mendiola MD Primary Care Provider [phone] Reason for Visit * Reason Comments Cerumen Impaction Used Debrox x 3 days Encounter Details Date Type Department Care Team (Late st Contact Info) Description 04/10/2024 10:30 AM EST Office Visit Adult Medicine [facility] [place] [address] [place], [place] [phone] Demetrius Zapata PA [address] [place] [address] Bilateral impacted cerumen (Primary Dx); Paroxysmal atrial [...] 2 times daily IMAGING/LABORATORY: None ISIDRO Benton [address] documented in this encounter Plan of Treatment Upcoming Encounters Date Type Department Care Team (Late st Contact Info) Description 08/03/2024 10:30 AM EDT Office Visit [address] [phone] Adeola Torres PA [address] [place] [address] 03/08/2025 1:00 PM EST Ancillary Procedure [facility] - [facility] [address] 300 [facility] 154 [place] [address] documented as of this encounter Visit Diagnoses Diagnosis Bilateral impacted cerumen- Primary Impacted cerumen Paroxysmal atrial fibrillation (CMS/HCC) Atrial fibrillation documented in this encounter Care Teams Craft Worker Relationship Specialty Start Date End Date Courtney Mendiola MD [address] [place] [address] PCP - General Internal Medicine 01/10/24 documented as of this encounter
--- OUTSIDE RECORDS SUMMARY | 2024-04-28 11:39 | XMS_ITS | Patient Health Record ---
Author Organization [facility] Address [address] [address] Care Team Providers Care Shearing Machine Operator Name Role Phone TONJA SEXTON Unavailable [phone] Allergies Allergen (clinical drug ingredient) Drug/Non Drug [...] Status W/U Status Risk Notes Problem Vulvodynia (050503934) Vulvodynia, unspecified (N94.819) Active confirmed Plan Of Treatment Pending Test Test Name Order Date Urinalysis 05/30/2019 Insurance Providers Payer Name Payer Address Payer Phone Subscriber Number Group Number Insured Name Patient Relationship to Insured Coverage Start Date Coverage End Date MEDICARE [address] KESHIA DENNEY [id number] ARACELIS SCOTT Self - patient is the insured [employer] CLAIMS OFFICE [address] [address] [place], [place] [id number] ARACELIS SCOTT Self - patient is the insured Medical (General) History Surgical History Surgery Date(Month/Year) hysterectomy 1976
--- OUTSIDE RECORDS SUMMARY | 2024-04-28 11:40 | XMS_ITS | Encounter Summary ---
Author Organization [facility] Address [address] [place] [address] Care Team Providers Care Machine Sorter Name Role Phone Courtney Mendiola MD Primary Care Provider [phone] Encounter Details Date Type Department Care Team (Late st Contact Info) Description 04/26/2024 9:15 PM EST Ancillary Procedure [facility] Cardiology [facility] - [facility] [address] [facility] 154 [place] [phone] Arrived Social History Tobacco Use Types Packs/Day Years [...] Department Care Team (Late Contact Info) Description 08/03/2024 10:30 AM EDT Office Visit Adult Medicine [address] [phone] Adeola Torres PA [address] [place] [address] 03/08/2025 1:00 PM EST Ancillary Procedure [facility] Cardiology [facility] - [facility] [address] [facility] [address] [place] [phone] documented as of this encounter Procedures Procedure Name Priority Date/Time Associated Diagnosis Comments CARDIAC DEVICE CHECK- REMOTE- MURJ Routine 04/26/2024 9:14 PM EST documented in this encounter Results * Cardiac device check - Remote- MURJ (04/26/2024 9:14 PM EST) Date Time Interrogation Session [id number] CV DEVICE CHECK Type Interrogation Session Remote CV DEVICE CHECK Implantable Pulse Generator Processor Inspector MDT CV DEVICE CHECK Implantable Pulse Generator Type MANAGER CASH-P CV DEVICE CHECK Implantable Pulse Generator Model Essie Quad MANAGER CASH-P [id number] CV DEVICE CHECK Implantable Pulse Generator Serial Number [id number] CV DEVICE CHECK Implantable Pulse Generator Implant Date 20230506 CV DEVICE CHECK Battery Remaining Longevity 139.0 CV DEVICE CHECK Battery Voltage 3.040 CV D EVICE CHECK Battery GEOTECHNICIAN Trigger 2.595 CV DEVICE CHECK Battery Status Middle of Service CV DEVICE CHECK Shane Statistic RA Percent Paced 0.00 CV DEVICE CHECK Shane Statistic RV Percent Paced 97.84 CV DEVICE CHECK MANAGER CASH Statistic LV Percent Paced 0.00 CV DEVICE CHECK MANAGER CASH Statistic MANAGER CASH Percent Paced 0.00 CV DEVICE CHECK Lead Channel Impedance Value 3,363 CV DEVICE CHECK Lead Channel Sensing Intrinsic Amplitude 4.125 CV DEVICE CHECK Lead Channel Setting Sensing Sensitivity 0.90 CV DEVICE CHECK Lead Channel Impedance Value 551 CV DEVICE CHECK Lead Channel Pacing Threshold Amplitude 0.500 CV DEVICE CHECK Lead Channel Pacing Threshold Pulse Width 0.4 CV DEVICE CHECK Lead Channel RV Pacing Threshold Date 2024-04-25 CV DEVICE CHECK Lead Channel Setting Pacing Amplitude 2.000 CV DEVICE CHECK Lead Channel Setting Pacing Pulse Width 0.4 CV DEVICE CHECK Lead Channel Impedance Value 361 CV DEVICE CHECK Lead Channel Pacing Threshold Amplitude 0.500 CV DEVICE CHECK Lead Channel Pacing Threshold Pulse Width 1.0 CV DEVICE CHECK Lead Channel Pacing Threshold Date 2023-06-30 CV DEVICE CHECK Shane Setting Mode (NBG Code) VVIR CV DEVICE CHECK Ventricular chambers paced during MANAGER CASH pacing. RVOnly CV DEVICE CHECK Shane Setting Lower Rate Limit 70 CV DEVICE CHECK Shane Setting Maximum Sensor Rate 120 CV DEVICE CHECK Zone Setting Type Category VT CV DEVICE CHECK Rate 150 CV DEVICE CHECK Zone Setting Status ENABLED CV DEVICE CHECK Zone ID 6 CV DEVICE CHECK Date of Service 2024-06-03 CV DEVICE CHECK Anatomical Region Laterality Modality Device Interroga tion 04/25/2024 11:5 0 PM EST Impressions 04/26/2024 8:46 PM EST Heart Failure Diagnostic: Stable * Heart failure diagnostics assessed through the device * Status: Stable * No overt HF present Narrative Procedure Note Andrzej Perez MD - 04/26/2024 IMPRESSION: Heart Failure Diagnostic: Stable * Heart failure diagnostics assessed through the device * Status: Stable * No overt HF present us Andrzej Perez MD CV IMPLANTABLE CARDIAC DEV ICE PROCEDURES Final Result documented in this encounter Visit Diagnoses Not on filedocumented in this encounter Care Teams Machine Sorter Relationship Specialty Start Date End Date Courtney Mendiola MD [address] [place] [address] PCP - General Internal Medicine 01/10/24 documented as of this encounter
--- OUTSIDE RECORDS SUMMARY | 2024-04-28 11:40 | XMS_ITS | Encounter Summary ---
Author Organization [facility] Address [address] [place] [address] Care Team Providers Care Librarian Specialist Name Role Phone Courtney Mendiola MD Primary Care Provider [phone] Reason for Visit * Reason Onset Date Comments Med Refill 04/20/2024 Encounter Details Date Type Department Care Team (Late st Contact Info) Description 04/20/2024 Telephone [facility] - [facility] [address] [facility] [address] [place] [phone] Chemo Hensley MD [address] [place] [address] Med Refill Social History Tobacco Use Types Packs/Day Years [...] on file documented as of this encounter Ordered Prescriptions Prescription Sig Dispense Quantity Refills Last Filled Start Date End Date apixaban (ELIQUIS) 2.5 mg tablet Take 1 tablet (2.5 mg total) by mouth 2 (two) times a day. 180 each 3 04/20/2024 documented in this encounter Progress Notes * Yarelis Mckeon MA - 04/20/2024 4:58 PM EST Renewed. * Beckie Quinteros - 04/20/2024 11:16 AM EST Patient called stating she switched her insurance to [employer] from [employer]. Patient is requesting a refill for Eliquis 2.5 mg 2 tablets a day. Please send 90 day supply, pharmacy is confirmed. documented in this encounter Plan of Treatment Upcoming Encounters Date Type Department Care Team (Late st Contact Info) Description 08/03/2024 10:30 AM EDT Office Visit Adult Medicine [facility] [address] [place] [address] Adeola Torres PA [address] [place] [address] 03/08/2025 1:00 PM EST Ancillary Procedure [facility] - [facility] [address] [facility] [address] [place] [address] documented as of this encounter Visit Diagnoses Not on filedocumented in this encounter Discontinued Medications Medication Sig Discontinue Reason Start Date End Da te apixaban (ELIQUIS) 2.5 mg tablet Take 1 tablet (2.5 mg total) by mouth 2 (two) times a day. Reorder 04/11/2024 04/20/2024 documented as of this encounter Care Teams Librarian Specialist Relationship Specialty Start Date End Date Courtney Mendiola MD [address] [place] [address] PCP - General Internal Medicine 01/10/24 documented as of this encounter
--- OUTSIDE RECORDS SUMMARY | 2024-04-28 11:40 | XMS_ITS | Encounter Summary ---
Author Organization [facility] [place] [address] Care Team Providers Care Allergy And Immunology Specialist Name Role Phone Courtney Mendiola MD Primary Care Provider [phone] Reason for Visit * Reason Onset Date Comments Patient Assistance Form 02/08/2024 Eliquis Encounter Details Date Type Department Care Team (Late st Contact Info) Description 02/08/2024 Telephone [facility] - [facility] [address] [facility] [address] [place] [address] Janelle Zacarias [place] Patient Assistance Form (Eliquis ) Social History Tobacco Use Types Packs/Day [...] as of this encounter Progress Notes * Jessica Arce - 04/13/2024 4:20 PM EST [employer]: APPROVED Your patient, Hannah Damian, has been approved and is eligible to receive ENTRESTO until 02.28.25 at no cost to your patient. * Janelle Zacarias MA - 02/16/2024 1:46 PM EST Haven't received fax yet, gave the patient the fax machine number by Dr. Shellie desk. After we receive I will give to Shellie Longoria to fill out and then fax back to Jose Manuel the son who fax number it belongs to. * Krystal Powell - 02/16/2024 11:36 AM EST Patients son calling back, he also faxed another form that needs to be done around 11:00 am today. He would like to make sure it was received. Please call him back at [phone]. * Krystal Powell - 02/16/2024 10:17 AM EST Patients son Jose Manuel called, he is asking if the form can be faxed to him directly at [phone]. * Janelle Zacarias MA - 02/08/2024 1:53 PM EST Form was filled out by [facility] and given to me, contact the patient son (Jose Manuel) asked to have form mailed which I made a copy and placed in the mail for the patient to fill out her part and fax to [employer]. documented in this encounter Plan of Treatment Upcoming Encounters Date Type Department Care Team (Late st Contact Info) Description 08/03/2024 10:30 AM EDT Office Visit Adult Medicine [address] [phone] Adeola Torres PA [address] [place] [address] 03/08/2025 1:00 PM EST Ancillary Procedure [facility] - [facility] [address] [facility] [address] [place] [phone] documented as of this encounter Visit Diagnoses Not on filedocumented in this encounter Care Teams Allergy And Immunology Specialist Relationship Specialty Start Date End Date Courtney Mendiola MD [address] [place] [phone] PCP - General Internal Medicine 01/10/24 documented as of this encounter
--- OUTSIDE RECORDS SUMMARY | 2024-04-28 11:40 | XMS_ITS | Clinical Summary ---
Author Organization [facility] [address] [facility] Address [address] [place] [address] Phone Care Team Providers Care Java Spring Developer Name Role Phone Courtney Mendiola MD Primary Care Provider [phone] Allergies Active Allergy Reactions Criticality Noted Date [...] EVERY DAY 90 tablet 1 025 Active sacubitriL-va lsartan (Entresto) 49-51 mg per tablet Take 1 tablet by mouth 2 (two) times a day. 180 tablet 3 025 Active apixaban (ELIQUIS) 2.5 mg tablet Take 1 tablet (2.5 mg total) by mouth 2 (two) times a day. 180 each 3 Active apixaban (ELIQUIS) 2.5 mg tablet [...] per week 024 2024 Discontinued(T herapy completed) sacubitriL-va lsartan (Entresto) 49-51 mg per tablet Take 1 tablet by mouth 2 (two) times a day. 180 tablet 3 024 2024 Discontinued(R eorder) carbamide peroxide (DEBROX) 6.5 % otic solution Administer 5-10 drops into each ear 2 (two) times a day for 4 days. 15 mL 025 2024 apixaban (ELIQUIS) 2.5 mg tablet Take 1 tablet (2.5 mg total) by mouth 2 (two) times a day. 60 each 3 025 2024 Discontinued(R eorder) Active Problems Problem Noted Date Diagnosed Date [...] Mitral valve regurgitation 12/30/2006 Overview (12/20/2023): Echo 1/07- mild to moderate mitral and tricuspid regurgitation [...] Encounters Date Type Department Care Team Description 04/26/2024 9:15 PM EST Ancillary Procedure [facility] Cardiology [facility] [address] [place] [address] Arrived 04/24/2024 12:30 PM EST Ancillary Procedure [facility] [address] [place] [address] Other fatigue; Dyspnea on exertion 04/20/2024 Telephone [facility] Cardiology [facility] [address] [place] [address] Chemo Hensley MD Med Refill 04/10/2024 10:30 AM EST Office Visit [address] [place] [address] Demetrius Zapata PA Bilateral impacted cerumen (Primary Dx); Paroxysmal atrial fibrillation (CMS/HCC) 04/06/2024 Telephone [facility] [address] [facility] [address] [place] [address] Janelle Zacarias MA Med Refill (Entresto 49-51 ) 04/06/2024 Telephone [facility] [address] [facility] [address] [place] [address] Chemo Hensley MD medication 04/05/2024 2:30 PM EST Office Visit Adult Medicine [address] [phone] Courtney Mendiola MD Essential hypertension, benign (Primary Dx); Hypercholesterolemia; Gastroesophageal reflux disease without esophagitis; Cerumen debris on tympanic membrane of both ears 04/04/2024 5:25 PM EST Ancillary Procedure [facility] [address] [facility] [address] [place] [address] 03/22/2024 Telephone [facility] [address] [facility] [address] [place] [address] Chemo Hensley MD Medication Problem 03/21/2024 Telephone Adult [address] [phone] Courtney Mendiola MD walkin 03/13/2024 11:10 AM EST Office Visit [facility] [address] [facility] [address] [place] [address] Dayanara Gates NP Dilated cardiomyopathy (CMS/HCC) (Primary Dx); Status post biventricular cardiac pacemaker insertion; NSVT (nonsustained ventricular tachycardia) (CMS/HCC); Other fatigue; Dyspnea on exertion; Hypomagnesemia; Paroxysmal atrial fibrillation (CMS/HCC); Status post atrioventricular rosa ablation; Mitral valve insufficiency, unspecified etiology; Tricuspid valve insufficiency, unspecified etiology; Essential hypertension, benign; Hypercholesterolemia 03/08/2024 1:00 PM EST Ancillary Procedure [facility] [address] [place] [address] Encounter for adjustment or management of cardiac device 03/07/2024 3:20 PM EST Ancillary Procedure [facility] [address] [place] [address] 02/22/2024 Telephone [facility] [address] [place] [address] Chemo Hensley MD med paperwork 02/08/2024 Telephone [facility] [address] [place] [address] Janelle Zacarias [place] Patient Assistance Form (Eliquis ) 02/01/2024 4:25 PM EST Ancillary Procedure [facility] [address] [place] [address] 01/31/2024 Telephone [facility] [address] [place] [address] Dayanara Gates NP from Last 3 Months Surgical History Surgery Date Site/Laterality Comments APPENDECTOMY PROCEDURE: HISTORICAL APPENDECTOMY; COMMENT: as a 12-year-old HYSTERECTOMY PROCEDURE: HISTORICAL HYSTERECTOMY; COMMENT: at the age of 39 CATARACT EXTRACTION PROCEDURE: HISTORICAL CATARACT REMOVAL; COMMENT: at the age of 61 both eyes COLONOSCOPY 03/19/2011 PROCEDURE: HISTORICAL COLONOSCOPY; COMMENT: 7 mm rectal polyp: Mixed hyperplastic and adenomatous polyp. ESOPHAGOGASTRODUODENOSCOPY 03/06/2013 PROCEDURE: WI ESOPHAGOGASTRODUODENOSCOPY TRANSORAL DIAGNOSTIC; COMMENT: normal Medical History [...] Sign Reading Time Taken Comments Blood Pressure 110/70 04/24/2024 1:19 PM EST Pulse 68 04/10/2024 10:23 AM EST Temperature 36.5 ??C (97.7 ??F) 04/10/2024 10:[address] Respiratory Rate 16 04/10/2024 10:23 AM EST Oxygen Saturation 97% 04/10/2024 10:23 AM EST Inhaled Oxygen Concentration - - Weight 55.8 kg (123 lb) 04/24/2024 1:19 PM EST Height 160 cm (5' 3 ) 04/24/2024 1:19 PM EST Body Mass Index 21.79 04/24/2024 1:19 PM EST Plan of Treatment Upcoming Encounters Date Type Department Care Team (Late st Contact Info) Description 08/03/2024 10:30 AM EDT Office Visit Adult Medicine [address] [phone] Adeola Torres PA [address] [place] [address] 03/08/2025 1:00 PM EST Ancillary Procedure [facility] [address] [facility] [address] [place] [address] Health Maintenance Due Date Last Done Comments [...] this topic Medical Devices Implanted Type Area Malted Milk Supervisor Device Identifier Shelf Expiration Date Model / Serial / Lot Medt-Card sEsie Quad Manager Of Case-P [id number] Implanted:08/2023 (Quantity not on file) Cardiac TRANSIT MIXER OPERATOR-P [employer] - CARDIAC RHYTH-CRDM ESSIE QUAD TRANSIT MIXER OPERATOR-P [id number] / [id number] / Procedures Procedure Name Priority Date/Time Associated Diagnosis Comments CARDIAC DEVICE CHECK- REMOTE- MURJ Routine 04/26/2024 9:14 PM EST TRANSTHORACIC ECHOCARDIOGRAM (TTE) COMPLETE Routine 04/24/2024 1:19 PM EST Other fatigue Dyspnea on exertion CARDIAC DEVICE CHECK- REMOTE- MURJ Routine 04/04/2024 [...] Essential hypertension, benign Paroxysmal atrial fibrillation (CMS/HCC) LIPID PANEL Routine 12/10/2023 HM DEPRESSION SCREENING Routine 03/26/2023 DXA BONE DENSITY STUDY 1+ SITS AXIAL SKEL Routine 05/29/2021 11:19 AM EDT Other specified disorders of bone density and structure, unspecified site from Last 3 Months or Most Recently Relevant to Health Maintenance Results * Cardiac device check - Remote- MURJ (04/26/2024 9:14 PM EST) Only the most recent of4 resultswithin the time period is included. Date Time Interrogation Session [id number] CV DEVICE CHECK Type Interrogation Session Remote CV DEVICE CHECK Implantable Pulse Generator Malted Milk Supervisor MDT CV DEVICE CHECK Implantable Pulse Generator Type TRANSIT MIXER OPERATOR-P CV DEVICE CHECK Implantable Pulse Generator Model Essie Quad TRANSIT MIXER OPERATOR-P [id number] CV DEVICE CHECK Implantable Pulse Generator Serial Number [id number] CV DEVICE CHECK Implantable Pulse Generator Implant Date [id number] CV DEVICE CHECK Battery Remaining Longevity 139.0 CV DEVICE CHECK Battery Voltage 3.040 CV D EVICE CHECK Battery EDGE CUTTING MACHINE OPERATOR Trigger 2.595 CV DEVICE CHECK Battery Status Middle of Service CV DEVICE CHECK Shane Statistic RA Percent Paced 0.00 CV DEVICE CHECK Shane Statistic RV Percent Paced 97.84 CV DEVICE CHECK TRANSIT MIXER OPERATOR Statistic LV Percent Paced 0.00 CV DEVICE CHECK TRANSIT MIXER OPERATOR Statistic TRANSIT MIXER OPERATOR Percent Paced 0.00 CV DEVICE CHECK [...] CV DEVICE CHECK Ventricular chambers paced during TRANSIT MIXER OPERATOR pacing. RVOnly CV DEVICE CHECK Shane [...] Status: Stable * No overt HF present Andrzej Perez MD CV IMPLANTABLE CARDIAC DEV ICE PROCEDURES Final Result * (ABNORMAL) TRANSTHORACIC ECHOCARDIOGRAM (TTE) COMPLETE (04/24/2024 1:19 PM EST) LV EDV (A2C) 41 mL CV PACS LV EDV (A4C) 49 mL CV PACS LV Diastolic Volume (BP) 45(A) 46 - 106 mL CV PACS LV ESV (A2C) 29 mL CV PACS LV ESV (A4C) 29 mL CV PACS LV Systolic Volume (BP) 29 14 - 42 mL CV PACS IVSD 0.7 0.6 - 0.9 cm CV PACS LVIDD 4.5 3.8 - 5.2 cm CV PACS LVIDS 2.8 2.2 - 3.5 cm CV PACS LVOT Diameter 1.8 cm CV PACS LVOT Mean Chad 0.6 m/s CV PACS LVOT Mean Grad 2 mmHg CV PACS LVOT Peak VTI 18.1 cm CV PACS LVOT Peak Chad 1.0 m/s CV PACS LVOT Peak Gradient 4 mmHg CV PACS LVPWD 0.9 0.6 - 0.9 cm CV PACS Ejection Fraction (A2C) 31 % CV PACS Ejection Fraction (A4C) 41 % CV PACS Ejection Fraction (BP) 36 % CV PACS LVOT Area 2.5 cm2 CV PACS LVOT Stroke Volume 46 mL CV PACS Left Atrium Minor [place] 6.8 cm CV PACS Left Atrium Major [place] 6.7 cm CV PACS LA Area Sys (A2C) 25 cm2 CV PACS LA Area Sys (A4C) 24 cm2 CV PACS LA Volume (BP) 75 mL CV PACS RA Area 16.8 cm2 CV PACS RA 2D Volume 44 mL CV PACS Aortic Sinus Valsalva 2.8 cm CV PACS Ascending Aorta 3.6 cm CV PACS IVC Proximal 1.9 cm CV PACS IVC Proximal 0.7 cm CV PACS MR VTI 201.0 cm CV PACS MR PISA Max Velocity 5.5 m/s CV PACS MR Peak Gradient 119 mmHg CV PACS PV Acceleration Time 99 ms CV PACS RV Diastolic Basal Dimension 2.9 2.5 - 4.1 cm CV PACS TAPSE 17 mm CV PACS TR Peak Velocity 2.20 m/s CV PACS TR Peak Gradient 19 mmHg CV PACS Relative Wall Thickness ratio 0.40 CV PACS FS 38 % CV PACS LV Mass 2D 114 g CV PACS LVOT flow 153 mL/s CV PACS BSA 1.57 m2 CV PACS LV Diastolic Volume Index (BP) 29 29 - 61 mL/m2 CV PACS LV Systolic Volume Index (BP) 18 8 - 24 mL/m2 CV PACS LV EDV Index (A4C) 31 mL/m2 CV PACS LV ESV Index (A4C) 18 mL/m2 CV PACS LV EDV Index (A2C) 26 mL/m2 CV PACS LV ESV Index (A2C) 18 mL/m2 CV PACS LA Volume Index (BP) 48 mL/m2 CV PACS LVIDD Index 2.87 cm/m2 CV PACS LVIDS Index 1.78 cm/m2 CV PACS LV Mass Index 2D 72 44 - 88 g/m2 CV PACS LVOT Stroke Index 29 mL/m2 CV PACS RA 2D Volume Index 28(A) 15 - 27 mL/m2 CV PACS Ascending Aorta Index 2.29 cm/m2 CV PACS Right Ventricular Peak Systolic Pressure 22 mmHg CV PACS Est. RA Pressure 3 mmHg CV PACS Anatomical Region Laterality Modality Ultrasound Narrative 04/27/2024 9:37 AM EST ?Image quality was poor. LV function appears to be moderately impaired with an EF of 35 to 40%. ??My impression is that the inferior wall is more hypokinetic than the remainder of the ventricle. RV size and function appears to be normal The left atrium is severely dilated and the right atrium appears normal. Pacing wires are visible in the right-sided chambers There is mild tricuspid and mitral regurgitation. ??Normal estimated PA systolic pressure and CVP No significant change from July 28, 2023. ?In April 2023 there appeared to be more severe mitral and tricuspid insufficiency. ??Although some of this could be image quality. ??It is difficult to say if there was a difference in systolic function. Left Ventricle Image quality is poor. Contrast was not used. Left ventricle cavity size is normal. Wall thickness is normal. Systolic function is moderately decreased with an ejection fraction of 35-40%. It appears to me that the inferior wall is more hypokinetic than the remainder of the ventricle. Unable to assess diastolic function. Right Ventricle Right ventricle cavity appears normal. Systolic function is normal. Left Atrium Left atrium cavity is severely dilated. Right Atrium Right atrium cavity is normal. A pacer wire is present in the right atrium. IVC/SVC Inferior vena cava structure is normal. RA pressures is estimated to be 3 mmHg (IVC diameter <21 mm and decreases >50% during inspiration). Mitral Valve The leaflets are mildly thickened. There is mild annular calcification. There is mild regurgitation with a posteriorly directed jet. There is no significant stenosis noted. Tricuspid Valve Tricuspid valve structure is normal. There is mild regurgitation. There is no significant tricuspid valve stenosis. The gradient across the valve is 19 mmHg with a estimated CVP of 3 mmHg. This equals an estimated PA systolic pressure of 22 mmHg. Aortic Valve The aortic valve is trileaflet. The leaflets are not thickened and exhibit normal excursion. There is mild regurgitation. There is no evidence of aortic valve stenosis. Pulmonic Valve The pulmonic valve was not well visualized. No significant pulmonic valve regurgitation. No significant pulmonary valve stenosis noted. Ascending Aorta The aorta appears normal in size. Pericardium Pericardium appears normal. There is no pericardial effusion. Study Details Overall the study quality was adequate. The underlying ECG rhythm was atrial fibrillation. us Dayanara Gates JOB COACHING CV ECHO PROCEDURES Fi nal Result * Thyroid stimulating hormone with reflex to free t4 and free t3 (03/13/2024 1:46 PM EST) [facility] TSH 1.33 0.40 - 4.00 mcIU/mL LAB CHEMISTRY METHOD 03/13/2024 6:59 PM [facility] Blood Venous blood specimen / Unknown Venipuncture / Unknown 03/13/2024 1:46 PM EST 03/13/2024 1:46 PM EST us Dayanara Gates JOB COACHING LAB BLOOD ORDERABLES Final Result [facility] [address] [place] [address], * CBC auto differential (03/13/2024 1:46 PM EST) [facility] WBC 8.7 4.8 - 10.8 K/mcL LAB HEMETOLOGY METHOD 03/13/2024 4:53 PM [facility] RBC 4.20 3.80 - 4.80 M/mcL LAB HEMETOLOGY METHOD 03/13/2024 4:53 PM [facility] Hemoglobin 11.9 11.5 - 16.0 g/dL LAB HEMETOLOGY METHOD 03/13/2024 4:53 PM [facility] Hematocrit 37.0 35.0 - 47.0 % LAB HEMETOLOGY METHOD 03/13/2024 4:53 PM [facility] MCV 88.7 79.0 - 98.0 FL LAB HEMETOLOGY METHOD 03/13/2024 4:53 PM [facility] MCH 28.5 27.0 - 32.0 pcg LAB HEMETOLOGY METHOD 03/13/2024 4:53 PM [facility] MCHC 32.2 32.0 - 37.0 g/dL LAB HEMETOLOGY METHOD 03/13/2024 4:53 PM [facility] RDW 13.8 11.0 - 15.0 % LAB HEMETOLOGY METHOD 03/13/2024 4:53 PM [facility] Platelets 202 130 - 400 K/mcL LAB HEMETOLOGY METHOD 03/13/2024 4:53 PM [facility] MPV 10.6 7.0 - 11.0 FL LAB HEMETOLOGY METHOD 03/13/2024 4:53 PM [facility] NRBC 0.0 <1.0 % LAB HEMETOLOGY METHOD 03/13/2024 4:53 PM [facility] NRBC Absolute 0.00 <0.10 K/mcL LAB HEMETOLOGY METHOD 03/13/2024 4:53 PM [facility] Neutrophils Relative 52.8 % LAB HEMETOLOGY METHOD 03/13/2024 4:53 PM [facility] Lymphocytes Relative 36.5 % LAB HEMETOLOGY METHOD 03/13/2024 4:53 PM [facility] Monocytes Relative 9.2 % LAB HEMETOLOGY METHOD 03/13/2024 4:53 PM [facility] Eosinophils Relative 0.9 % LAB HEMETOLOGY METHOD 03/13/2024 4:53 PM [facility] Basophils Relative 0.3 % LAB HEMETOLOGY METHOD 03/13/2024 4:53 PM [facility] Immature Granulocytes Relative 0.3 % LAB HEMETOLOGY METHOD 03/13/2024 4:53 PM EST [facility] Neutrophils Absolute 4.61 1.50 - 7.00 K/[facility] LAB HEMETOLOGY METHOD 03/13/2024 4:53 PM [facility] Lymphocytes Absolute 3.19 1.00 - 5.00 K/[facility] LAB HEMETOLOGY METHOD 03/13/2024 4:53 PM EST [facility] Monocytes Absolute 0.80 0.20 - 1.00 K/[facility] LAB HEMETOLOGY METHOD 03/13/2024 4:53 PM EST [facility] Eosinophils Absolute 0.08 0.00 - 0.50 K/[facility] HEMETOLOGY METHOD 03/13/2024 4:53 PM [facility] Basophils Absolute 0.03 0.00 - 0.20 K/[facility] HEMETOLOGY METHOD 03/13/2024 4:53 PM EST [facility] Immature Granulocytes Absolute 0.03 0.00 - 0.03 K/[facility] HEMETOLOGY METHOD 03/13/2024 4:53 PM EST [facility] Blood Venous blood specimen / Unknown Venipuncture / Unknown 03/13/2024 1:46 PM EST 03/13/2024 1:46 PM EST Dayanara Gates JOB COACHING LAB BLOOD ORDERABLES Final Result [facility] [address] [place] [address], * (ABNORMAL) B-type natriuretic peptide (03/13/2024 1:46 PM EST) BNP 313(H) <=100 pcg/mL LAB CHEMISTRY METHOD 03/13/2024 5:45 PM EST [facility] Blood Venous blood specimen / Unknown Venipuncture / Unknown 03/13/2024 1:46 PM EST 03/13/2024 1:46 PM EST Dayanara Gates NP LAB BLOOD ORDERABLES Final Result Performing Organization Address City/[facility]/ZIP Co de Phone Number [facility] [address] [place] [address], [place] [phone] * (ABNORMAL) Magnesium (03/13/2024 1:46 PM EST) Only the most recent of3 resultswithin the time period is included. Magnesium 1.4(L) 1.9 - 2.6 mg/dL LAB CHEMISTRY METHOD 03/13/2024 6:39 PM EST [facility] Blood Venous blood specimen / Unknown Venipuncture / Unknown 03/13/2024 1:46 PM EST 03/13/2024 1:46 PM EST Dayanara Gates NP LAB BLOOD ORDERABLES Final Result Performing Organization Address [facility]/ZIP Co de Phone Number [facility] [address] [place] [address], [place] [phone] * CARDIAC DEVICE CHECK- IN CLINIC- MURJ (03/08/2024 1:35 PM EST) Date Time Interrogation Session [id number] CV DEVICE CHECK Implantable Pulse Generator Malted Milk Supervisor MDT CV DEVICE CHECK Implantable Pulse Generator Type TRANSIT MIXER OPERATOR-P CV DEVICE CHECK Implantable Pulse Generator Model Essie Quad TRANSIT MIXER OPERATOR-P [id number] CV DEVICE CHECK Implantable Pulse Generator Serial Number [id number] CV DEVICE CHECK Implantable Pulse Generator Implant [...] CV DEVICE CHECK Ventricular chambers paced during TRANSIT MIXER OPERATOR pacing. RV CV DEVICE CHECK Shane [...] thresholds reviewed and tested * Presenting Rhythm: REGIONAL COMMERCIAL SALES MANAGER 70s * No R waves @ VVI [...] thresholds reviewed and tested * Presenting Rhythm: REGIONAL COMMERCIAL SALES MANAGER 70s * No R waves @ VVI [...] mmol/L LAB CHEMISTRY METHOD 01/31/2024 1:41 PM EST [facility] Potassium 4.0 3.5 - 5.5 mmol/L LAB CHEMISTRY METHOD 01/31/2024 1:41 PM EST [facility] Chloride 109 96 - 110 mmol/L LAB CHEMISTRY METHOD 01/31/2024 1:41 PM [facility] CO2 23 21 - 32 mmol/L LAB CHEMISTRY METHOD 01/31/2024 1:41 PM [facility] Anion Gap 9 3 - 11 LAB CHEMISTRY METHOD 01/31/2024 1:41 PM [facility] Glucose 93 70 - 100 mg/dL LAB CHEMISTRY METHOD 01/31/2024 1:41 PM [facility] BUN 17 5 - 25 mg/dL LAB CHEMISTRY METHOD 01/31/2024 1:41 PM [facility] Creatinine 0.96 0.50 - 1.10 mg/dL LAB CHEMISTRY METHOD 01/31/2024 1:41 PM [facility] eGFR 57(L) >=60 mL/min/1. 73m2 LAB CHEMISTRY METHOD 01/31/2024 1:41 PM [facility] Comment:Calculation based on the??Chronic Kidney Disease Epidemiology Collaboration (CKD-EPI) equation refit??without adjustment for race. BUN/Creatinine Ratio 17.7 LAB CHEMISTRY METHOD 01/31/2024 1:41 PM [facility] Calcium 8.9 8.5 - 10.5 mg/dL LAB CHEMISTRY METHOD 01/31/2024 1:41 PM [facility] Blood Venous blood specimen / Unknown Venipuncture / Unknown 01/31/2024 10:16 AM EST 01/31/2024 10:16 AM EST Dayanara Gates NP LAB BLOOD ORDERABLES Final Result [facility] [address] [place] [address], * Lipid panel (12/10/2023) LDL/HDL Ratio 3 0 - 4 Triglycerides 104 0 - 150 mg/dL Cholesterol 158 0 - 200 mg/dL HDL 46 >=40 mg/dL LDL Cholesterol 92 0 - 100 mg/dL Blood Venous blood specimen / Unknown us Historical Provider LAB BLOOD ORDERABLES Margarita l Result * Depression Screening (03/26/2023) Depression Screening Abstracted Historical Provider HEALTH MAINTENANCE [...] (World Health Organization Fracture Risk Assessment) [facility] Department of Internal Medicine recommends using [...] alternative screening schedule based on aaron Varghese., [facility] March 19, 2011 for patients [...] (World Health Organization Fracture Risk Assessment) [facility] Department of Internal Medicine recommendsusing National [...] alternative screening schedule based on aaron Varghese., NEJJanuary 2011 for patients with osteopenia (based on hip BMD T-score) is as follows: * advanced osteopenia (T scores -2.00 to -2.49), BMD testing every year * moderate osteopenia (T scores -1.50 to -1.99), BMD testing every 5years mild osteopenia or normal BMD (T scores -1.50 and higher), BMD testingevery 15 years Katharine FELIX [facility] DXA PROCEDURES Final Result from Last 3 Months or Most Recently Relevant to Health Maintenance Insurance MEDICARE HUMAN Advance Directives Documents on File Type Date Recorded Patient Transport Coordinator Expl anation Health Care Decision (hx) 08/07/2015 [...] DIRECTIVE Health Care Decision (hx) 08/07/2015 AD MATIHS DIRECTIVE Health Care Decision (hx) 08/07/2015 AD MATIHS DIRECTIVE Health Care Decision (hx) 08/07/2015 AD MATHIS DIRECTIVE Care Teams Java Spring Developer Relationship Specialty Start Date End Date Courtney Mendiola MD [address] [place] [id number] PCP - General Internal Medicine 01/10/24
--- OUTSIDE RECORDS SUMMARY | 2024-04-28 11:40 | XMS_ITS | Encounter Summary ---
Author Organization [facility] Address [address] [place] [address] Care Team Providers Care Director Of Development Name Role Phone Courtney Mendiola MD Primary Care Provider [phone] Reason for Visit * Reason Onset Date Comments medication 04/06/2024 Encounter Details Date Type Department Care Team (Late st Contact Info) Description 04/06/2024 Telephone [facility] [address] [facility] [address] [place] [address] Chemo Hensley MD [address] [place] [address] medication Social History Tobacco Use Types Packs/Day [...] that he needs to send to the [facility] in order for them to cover and [...] 02/21/24.Please give him a call back at [phone]. * Beckie Quinteros - 04/06/2024 11:31 AM EST Patients son Jose Manuel called requesting a fax for his mothers Eliquis prescription. The Eliquis 25 mg 90 day supply is not covered through her insurance and she is apart of [facility] assistance. He needs this sent to his person fax at [phone]. documented in this encounter Plan of Treatment Upcoming Encounters Date Type Department Care Team (Late st Contact Info) Description 08/03/2024 10:30 AM EDT Office Visit Adult Medicine [address] [address] Adeola Torres PA [address] [place] [address] 03/08/2025 1:00 PM EST Ancillary Procedure [facility] [address] [facility] [address] [place] [address] documented as of this encounter Visit Diagnoses Not on filedocumented in this encounter Care Teams Director Of Development Relationship Specialty Start Date End Date Courtney Mendiola MD [address] [place] [address] PCP - General Internal Medicine 01/10/24 documented as of this encounter
--- OUTSIDE RECORDS SUMMARY | 2024-04-28 11:40 | XMS_ITS | Encounter Summary ---
Author Organization [facility] Address [address] [place] [address] Care Team Providers Care Tile Designer Name Role Phone Courtney Mendiola MD Primary Care Provider [phone] Encounter Details Date Type Department Care Team (Late st Contact Info) Description 04/04/2024 5:25 PM EST Ancillary Procedure [facility] [address] [facility] [address] [place] [phone] Social History Tobacco Use Types Packs/Day Years [...] 10:30 AM EDT Office Visit Adult Medicine [address] [address] Adeola Torres PA [address] [place] [address] 03/08/2025 1:00 PM EST Ancillary Procedure [facility] Card[facility] [address] [facility] [address] [place] [phone] documented as of this encounter Procedures Procedure Name Priority Date/Time Associated Diagnosis Comments CARDIAC DEVICE CHECK- REMOTE- MURJ Routine 04/04/2024 5:20 PM EST documented in this encounter Results * Cardiac device check - Remote- MURJ (04/04/2024 5:20 PM EST) Date Time Interrogation Session [id number] CV DEVICE CHECK Type Interrogation Session Remote CV DEVICE CHECK Implantable Pulse Generator Tour Production Supervisor MDT CV DEVICE CHECK Implantable Pulse Generator Type UNDERGROUND DRILL OPERATOR-P CV DEVICE CHECK Implantable Pulse Generator Model Essie Quad UNDERGROUND DRILL OPERATOR-P [id number] CV DEVICE CHECK Implantable Pulse Generator Serial Number [id number] CV DEVICE CHECK Implantable Pulse Generator Implant Date 20230506 CV DEVICE CHECK Battery Remaining Longevity 138.0 CV DEVICE CHECK Battery Voltage 3.040 CV D EVICE CHECK Battery PAID SEARCH MANAGER Trigger 2.595 CV DEVICE CHECK Battery Status Middle of Service CV DEVICE CHECK Shane Statistic RA Percent Paced 0.00 CV DEVICE CHECK Shane Statistic RV Percent Paced 94.93 CV DEVICE CHECK UNDERGROUND DRILL OPERATOR Statistic LV Percent Paced 0.00 CV DEVICE CHECK UNDERGROUND DRILL OPERATOR Statistic UNDERGROUND DRILL OPERATOR Percent Paced 0.00 CV DEVICE CHECK [...] CV DEVICE CHECK Ventricular chambers paced during UNDERGROUND DRILL OPERATOR pacing. RVOnly CV DEVICE CHECK Shane [...] on filedocumented in this encounter Care Teams Tile Designer Relationship Specialty Start Date End Date Courtney Mendiola MD [address] [place] [address] PCP - General Internal Medicine 01/10/24 documented as of this encounter
--- OUTSIDE RECORDS SUMMARY | 2024-04-28 11:40 | XMS_ITS | Encounter Summary ---
Author Organization [facility] Address [address] [place] [address] Care Team Providers Care Boat Mechanic Name Role Phone Courtney Mendiola MD Primary Care Provider [phone] Reason for Visit * Imaging (Routine) - Authorized Specialty Diagnoses / Procedures Referred By Contac t Referred To Contact Cardiology Diagnoses Other fatigue Dyspnea on exertion Procedures Transthoracic echocardiogram (TTE) complete with PRN contrast, bubble, strain, and 3D order panel DE TTE W 2D IMAGE COMPLETE W DOPPLER ECHO & COLOR FLOW DOPPLER ECHO DE YOLANDA 2D COMPLETE W/CONTRAST OR W & WO CONTRAST WITH DOPPLER Dayanara Gates NP [address] [place] [address] Phone: tel: fax: [facility] Referral ID Status Reason Start Date Expiration Date V isits Requested Visits Authorized [id number] Authorized 03/13/2024 03/13/2025 1 1 Encounter Details Date Type Department Care Team (Latest Contact Info) Description 04/24/2024 12:30 PM EST Ancillary Procedure [facility] - [address] [place] [address] Other fatigue; Dyspnea on exertion Social History Tobacco Use Types Packs/Day Years [...] Pressure 110/70 04/24/2024 1:19 PM EST Pulse - - Temperature - - Respiratory Rate - - Oxygen Saturation - - Inhaled Oxygen Concentration - - Weight 55.8 kg (123 lb) 04/24/2024 1:19 PM EST Height 160 cm (5' 3 ) 04/24/2024 1:19 PM EST Body Mass Index 21.79 04/24/2024 1:19 PM EST documented in this encounter Plan of Treatment Upcoming Encounters Date Type Department Care Team (Late st Contact Info) Description 08/03/2024 10:30 AM EDT Office Visit Adult Medicine [facility] [address] [place] [address] Adeola Torres PA [address] [place] [address] 03/08/2025 1:00 PM EST Ancillary Procedure [facility] - [address] [place] [address] documented as of this encounter Procedures Procedure Name Priority Date/Time Associated Diagnosis Comments TRANSTHORACIC ECHOCARDIOGRAM (TTE) COMPLETE Routine 04/24/2024 1:19 PM EST Other fatigue Dyspnea on exertion documented in this encounter Results * (ABNORMAL) TRANSTHORACIC ECHOCARDIOGRAM (TTE) COMPLETE (04/24/2024 [...] 46 mL CV PACS Left [facility] [place] 6.8 cm CV PACS Left [facility] [place] 6.7 cm CV PACS [place] Area Sys [...] The underlying ECG rhythm was atrial fibrillation. Dayanara Gates NP CV ECHO PROCEDURES Fi nal Result documented in this encounter Visit Diagnoses Diagnosis Other fatigue Dyspnea on exertion Other dyspnea and respiratory abnormality documented in this encounter Care Teams Boat Mechanic Relationship Specialty Start Date End Date Courtney Mendiola MD [address] [place] [address] PCP - General Internal Medicine 01/10/24 documented as of this encounter
--- OUTSIDE RECORDS SUMMARY | 2024-04-28 11:40 | XMS_ITS | Encounter Summary ---
Author Organization [facility] Address [address] [place] [address] Care Team Providers Care Emergency Veterinary Technician Name Role Phone Courtney Mendiola MD Primary Care Provider [phone] Reason for Visit * Reason Comments Follow-up Encounter Details Date Type Department Care Team ([facility] Contact Info) Description 04/05/2024 2:30 PM EST Office Visit Adult Medicine [address] [phone] Courtney Mendiola MD [address] [place] [address] Essential hypertension, benign (Primary Dx); Hypercholesterolemia ; [...] was advised removal. She has appointment with [facility] for osteoarthritis. ROS: Review of systems: Pertinent items are noted in HPI PAST MEDICAL HISTORY: Patient Active Problem List Diagnosis Date Noted Other fatigue 03/13/2024 Hypomagnesemia 03/13/2024 Vulvar burning 01/11/2024 Dilated cardiomyopathy ([facility]/HCC) 05/25/2023 Thyroid nodule 02/13/2021 Dyspnea on exertion 06/10/2020 Tricuspid valve insufficiency 06/10/2020 Vasovagal syncope 06/10/2020 Multiple thyroid nodules 03/25/2020 Mitral valve insufficiency 12/31/2015 Paroxysmal atrial fibrillation ([facility]/HCC) 11/26/2015 Cerebrovascular accident (CVA) due to thrombosis of left anterior cerebral artery ([facility]) 08/23/2015 CKD (chronic kidney disease) stage 3, GFR 30-59 ml/min ([facility]) 05/17/2015 Actinic keratosis 10/17/2014 IBS [...] also examined and questioned by my physician patient services assistant student and is in agreement with this. [...] Value Ref Range Date Time Interrogation Session [id number] Type Interrogation Session Remote Implantable Pulse Generator Singe Machine Operator MDT Implantable Pulse Generator Type MEN'S LEATHER DRESS BELT MAKER-P Implantable Pulse Generator Model Essie Quad MEN'S LEATHER DRESS BELT MAKER-P [id number] Implantable Pulse Generator Serial Number [id number] Implantable Pulse Generator Implant Date 20230506 Battery Remaining Longevity 138.0 Battery Voltage 3.040 Battery FRONT DESK SPECIALIST Trigger 2.595 Battery Status Middle of Service Shane Statistic RA Percent Paced 0.00 Shane Statistic RV Percent Paced 94.93 MEN'S LEATHER DRESS BELT MAKER Statistic LV Percent Paced 0.00 MEN'S LEATHER DRESS BELT MAKER Statistic MEN'S LEATHER DRESS BELT MAKER Percent Paced 0.00 Lead Channel Impedance Value [...] (NBG Code) VVIR Ventricular chambers paced during MEN'S LEATHER DRESS BELT MAKER pacing. RVOnly Shane Setting Lower Rate Limit [...] 10:30 AM EDT Office Visit Adult Medicine [address] [address] Adeola Torres PA [address] [place] [address] 03/08/2025 1:00 PM EST Ancillary Procedure [facility] - [facility] [address] [facility] [address] [place] [phone] documented as of this encounter Visit Diagnoses [...] documented as of this encounter Care Teams Emergency Veterinary Technician Relationship Specialty Start Date End Date Courtney Mendiola MD [address] [place] [address] PCP - General Internal Medicine 01/10/24 documented as of this encounter
--- OUTSIDE RECORDS SUMMARY | 2024-04-28 11:40 | XMS_ITS | Data Portability ---
Author Organization [facility] Address [address] [place] [address] Assessment No assessment recorded. Plan of Treatment Reminders Order Date Submit Date Provider Last Modified By Organization Details Last Modified Time Details Appointments None recorded. Lab rapid strep group A, throat 2022 023 [email or web address] [address] [place], [address], 3 11:04:02 streptococc us group A, culture, throat 2022 023 [place] [facility], [address] [place] [address], [place], [address], 3 06:08:06 Referral None recorded. Procedures None recorded. Surgeries None recorded. Imaging None recorded. Medication Orders docusate sodium 100 mg capsule 2022 023 [place] [facility], [address] [place], [address], 3 11:10:56 amoxicillin 875 mg tablet 2022 023 [place] [facility], [address] [place], [address], 3 11:04:04 benzonatate 100 mg capsule 2022 023 [place] [facility], [address] [place], [address], 3 11:04:04 Patient TargetsNo targets recorded. Patient Instructions Encounter Date Encounter Id Patient Instructions Last Modified By Organization Details Last Modified Time 04/26/2022 [id number] sore throat: car e instructions hany Not [...] Range : Negat yannick Not Available [facility] ([facility]) [address] [facility], [place], [address], 04/29/2022 06:08:06 04/26/1904/26/2022 rapid strep group A, throa t Unknown Analyte Normal = Negati ve Not Available [address] [address] [facility] [address] [place] [address], [place], [address], 04/26/2022 10:16:20 04/26/1904/26/2022 rapid strep group A, throa t Unknown Analyte negati ve Not Available [address] [address] [facility] [address] [place] [address], [place], [address], 04/26/2022 10:16:20 Result Notes None recorded. Problems Name Problem SNOMED Code Status Onset Date Resolution Date Notes Provider Name and Address Organization Details Recorded Time Gastroesoph ageal reflux disease 288299614 Active 2022 DARLENE ASAD null, [place] - [facility] 10:21:49 Hypertensiv e disorder 34644854 Active 2022 DARLENE ASAD null, [place] - [facility] 10:22:06 Hyperlipide angela 77089247 Active 2022 DARLENE ASAD null, [place] - [facility] 3 10:22:16 Atrial fibrillatio n 43864499 Active 2022 DARLENE ASAD null, PA - [facility] 3 10:29:47 Cerebrovasc ular accident 460683509 Completed 202204/26/2022 DARLENE ASAD null, PA - [...] null, PA - [facility] 3 10:19:10 682753 codeine medicatio n Not available Not available [...] Updated DateTime 3 161.29 cm 21.4 kg/m2 95789.8 6 g 8 97 % 97 % [...] SNOMED-CT Code Diagnosis ICD10 Code Diagnosis Note [id number] [facility] [address] [place] [address] 05/19/2016 17:27:49 05/19/2016 18:21:28 [id number] [facility] [address] [place] [address] 12/26/2021 09:19:44 12/26/2021 12:06:56 [id number] [facility] [address] [place] [address] 04/17/2020 10:57:25 04/17/2020 12:03:52 [id number] [facility] [address] [place] [address] 09/07/2019 14:00:26 09/07/2019 15:22:40 [id number] [facility] [address] [place] [address] 02/01/2019 08:34:11 02/01/2019 09:56:24 [id number] [facility] [address] [place] [address] 06/26/2015 14:06:37 06/26/2015 15:03:40 [id number] Pedro Jacobs NP [facility] [address] [place] [address] 04/26/2022 08:56:33 04/26/2022 11:14:14 Cerebrovascular accident 078745158 I63.9 Acute bact erial pharyngitis 527782028 J02.9 Chronic constipation 236 255086 K59.09 Health Concerns Section Related Observation LastModified by Organization Detai ls LastModified Time None Recorded Concern Status LastModified by Organization Details LastModified Time None Recorded Advance Directives Directive None Recorded Payers Encounter Date Sequence Insurance Name Policy Number Policy Trimble Covered Member ID Trimble Member ID Guarantor Name 02/01/2019 1 [place] [employer] [place] Hannah R Rickie [id number] Hannah Rickie 02/01/2019 2 [employer] - PLAN B (MEDICARE SUPPLEMENT) Hannah R Rickie [id number] Hannah Rickie 09/07/2019 1 [place] [employer] Hannah R Rickie [id number] Ahnnah Rickie 09/07/2019 2 [employer] - PLAN B (MEDICARE SUPPLEMENT) Hannah R Rickie [id number] Hannah Rickie 04/17/2020 1 [place]ATIONAL [employer]OVERNMENT [employer] Hannah R Rickie [id number] Hannah Rickie 04/17/2020 2 [employer] - PLAN B (MEDICARE SUPPLEMENT) Hannah R Rickie [id number] Hannah Rickie 12/26/2021 1 [place]ATIONAL GOVERNMENT [place] Hannah R Rickie [id number] Hannah Rickie 12/26/2021 2 [employer] - PLAN B (MEDICARE SUPPLEMENT) Hannah R Rickie [id number] Hannah Rickie 04/26/2022 1 [place]ATIONAL GOVERNMENT [place] Hannah R Rickie [id number] Hannah Rickie 04/26/2022 2 [employer] - PLAN B (MEDICARE SUPPLEMENT) Hannah R Rickie [id number] Hannah Rickie Notes Date Note Type Note [...] Jacobs NP [address] [place], [address], [place] - [facility] 04/26/2022 19:36:22 OBGyn Episode No OBEpisode recorded.
--- OUTSIDE RECORDS SUMMARY | 2024-04-28 11:40 | XMS_ITS | Encounter Summary ---
Author Organization [facility] [place] [address] Care Team Providers Care Orchard Sprayer Name Role Phone Courtney Mendiola MD Primary Care Provider [phone] Reason for Visit * Reason Onset Date Comments Med Refill 04/06/2024 Entresto 49-51 Encounter Details Date Type Department Care Team ([facility] st Contact Info) Description 04/06/2024 Telephone [facility] - [facility] [address] [facility] [address] [place] [phone] Janelle Zacarias MA Med Refill (Entresto 49-51 [...] Progress Notes * Janelle Zacarias MA - 04/13/2024 4:10 PM EST Called and spoke with the rep George from [employer] and she explained the patient has to submit a receipt of her current medications costing more then $838, and also we need to correct the form already sent and resend it to them so the patient can get approved for the patient assistance program thru [employer]. I called Deny (son) and he corrected that it's not [employer] it's [place] [employer], he also stated all Dr. Hensley has to do is call them and verbally correct the problem we don't have to resend the form this is what Ryan [employer] told him. The number to call is [phone]. * Krystal Powell - 04/13/2024 11:52 AM EST Deny called back, he spoke with [facility] and confirmed the form was received however the incorrectbox was checked off. The form is checked that she is not receiving outpatient care when in fact sheis. [facility] is requesting we call them back to verbally confirm that she is receiving out patient care. Ngozi can be reached at [phone]. Please call deny back at [phone]. * Krystal Powell - 04/11/2024 9:28 AM EST The patients son Deny calling back for an update. Please call him back at [phone]. * Janelle Zacarias MA - 04/06/2024 2:52 PM EST Deny the patient son called and is also asking for an RX to be faxed to him so he may submit to [facility] so his mom can receive her medication which she gets thru the [employer]. He said he already received the prescriber part which you filled out already but forgot to ask for the RX to submit with the paperwork. documented in this encounter Plan of Treatment Upcoming Encounters Date Type Department Care Team (Late st Contact Info) Description 08/03/2024 10:30 AM EDT Office Visit Adult Medicine [address] [address] Adeola Torres PA [address] [place] [address] 03/08/2025 1:00 PM EST Ancillary Procedure [facility] - [address] [place] [address] documented as of this encounter Visit Diagnoses Not on filedocumented in this encounter Care Teams Orchard Sprayer Relationship Specialty Start Date End Date Courtney Mendiola MD [address] [place] [address] PCP - General Internal Medicine 01/10/24 documented as of this encounter
== END 2024-04-28 11:01 | disposition home or self-care (01) ==
PROVIDERS: PCP Internal Medicine; Referring Provider Orthopaedic Surgery; Visit Provider Internal Medicine
DX: M16.12 Unilateral primary osteoarthritis, left hip (principal)
CPT/HCPCS: 99204

== ENCOUNTER → 2024-04-28 10:22 | Outpatient (BNVA) | payer MEDICARE, OTHER, SELFPAY | PROVIDERS: PCP Internal Medicine; Referring Provider Orthopaedic Surgery; Visit Provider Internal Medicine | DX: M16.12 Unilateral primary osteoarthritis, left hip (principal) | CPT/HCPCS: 99202 ==

== ENCOUNTER 2024-05-04 06:10 | Outpatient (REF) | payer MEDICARE, OTHER, SELFPAY ==
--- NOTE | ~2024-05-04 | FL_ITS ---
EXAMINATION: XR FLUOROSCOPY WITH IMAGES CLINICAL INFORMATION: Left hip osteoarthrosis, pain management COMPARISON: Left hip radiographs 10/06/2022. TECHNIQUE: Fluoroscopy provided to: Dr. Ceballos Fluoroscopy time: 0.1 minutes DAP: [id number] mGycm2 Images: 1 FINDINGS: Solitary spot image of the left hip during pain management injection. Please refer to the full operative report for details. FL/FL guidance in treatment room IMPRESSION: Fluoroscopic guidance. Electronically signed by: Brooks Chang MD 05/08/2024 11:19 AM EDT
--- OUTSIDE RECORDS SUMMARY | 2024-05-04 06:13 | XMS_ITS | Data Portability ---
Author Organization [facility] Address [address] [place] [address] Assessment No assessment recorded. Plan of Treatment Reminders Order Date Submit Date Provider Last Modified By Organization Details Last Modified Time Details Appointments None recorded. Lab rapid strep group A, throat 2022 023 [email or web address] [facility] [address] [place], [address], 3 11:04:02 streptococc us group A, culture, throat 2022 023 [place] [facility], [address] [place] [address], [place], [address], 3 06:08:06 Referral None recorded. Procedures None recorded. Surgeries None recorded. Imaging None recorded. Medication Orders docusate sodium 100 mg capsule 2022 023 [place] [facility], [address] [place], [address], 3 11:10:56 amoxicillin 875 mg tablet 2022 023 [place] [facility], [address] [place], [address], 3 11:04:04 benzonatate 100 mg capsule 2022 023 [place] [facility], [address] [place], [address], 3 11:04:04 Patient TargetsNo targets recorded. Patient Instructions Encounter Date Encounter Id Patient Instructions Last Modified By Organization Details Last Modified Time 04/26/2022 [id number] sore throat: car e instructions hany Not [...] Range : Negat yannick Not Available [facility] ([facility]) [address] [facility], [place], [address], 04/29/2022 06:08:06 04/26/1904/26/2022 rapid strep group A, throa t Unknown Analyte Normal = Negati ve Not Available [address] [address] [place] [address], [place], [address], 04/26/2022 10:16:20 04/26/1904/26/2022 rapid strep group A, throa t Unknown Analyte negati ve Not Available [address] [address] [facility] [address] [place] [address], [place], [address], 04/26/2022 10:16:20 Result Notes None recorded. Problems Name Problem SNOMED Code Status Onset Date Resolution Date Notes Provider Name and Address Organization Details Recorded Time Gastroesoph ageal reflux disease 635135469 Active 2022 DARLENE ASAD null, PA - [facility] 10:21:49 Hypertensiv e disorder 84981483 Active 2022 DARLENE ASAD null, PA - [facility] 10:22:06 Hyperlipide angela 75346916 Active 2022 DARLENE ASAD null, PA - [facility] 3 10:22:16 Atrial fibrillatio n 58689694 Active 2022 DARLENE ASAD null, PA - [facility] 3 10:29:47 Cerebrovasc ular accident 420309245 Completed 202204/26/2022 DARLENE ASAD null, PA - [...] null, PA - [facility] 3 10:19:10 497398 codeine medicatio n Not available Not available [...] Updated DateTime 3 161.29 cm 21.4 kg/m2 99198.8 6 g 8 97 % 97 % [...] SNOMED-CT Code Diagnosis ICD10 Code Diagnosis Note [id number] [facility] [address] [place] [address] 05/19/2016 17:27:49 05/19/2016 18:21:28 [id number] [facility] [address] [place] [address] 12/26/2021 09:19:44 12/26/2021 12:06:56 [id number] [facility] [address] [place] [address] 04/17/2020 10:57:25 04/17/2020 12:03:52 [id number] [facility] [address] [place] [address] 09/07/2019 14:00:26 09/07/2019 15:22:40 [id number] [facility] [address] [place] [address] 02/01/2019 08:34:11 02/01/2019 09:56:24 [id number] [facility] [address] [place] [address] 06/26/2015 14:06:37 06/26/2015 15:03:40 [id number] Pedro Jacobs NP [facility] [address] [place] [address] 04/26/2022 08:56:33 04/26/2022 11:14:14 Cerebrovascular accident 885218163 I63.9 Acute bact erial pharyngitis 346197480 J02.9 Chronic constipation 236 703249 K59.09 Health Concerns Section Related Observation LastModified by Organization Detai ls LastModified Time None Recorded Concern Status LastModified by Organization Details LastModified Time None Recorded Advance Directives Directive None Recorded Payers Encounter Date Sequence Insurance Name Policy Number Policy Trimble Covered Member ID Trimble Member ID Guarantor Name 02/01/2019 1 [place]ATIONAL GOVERNMENT [place] Hannahmonika Damian [id number] Hannah Rickie 02/01/2019 2 [employer] - PLAN B (MEDICARE SUPPLEMENT) Hannah Ophelia Damian [id number] Hannah Rickie 09/07/2019 1 MEDICARE [place] NATIONAL GOVERNMENT SERVICES Hannah Ophelia Damian [id number] Hannah Rickie 09/07/2019 2 [employer] - PLAN B (MEDICARE SUPPLEMENT) Hannah Ophelia Damian [id number] Hannah Rickie 04/17/2020 1 MEDICARE [place]: NATIONAL GOVERNMENT SERVICES Hannah Ophelia Damian [id number] Hannah Rickie 04/17/2020 2 [employer] - PLAN B (MEDICARE SUPPLEMENT) Hannah Ophelia Damian [id number] Hannah Rickie 12/26/2021 1 MEDICARE [place]: NATIONAL GOVERNMENT SERVICES Hannah Ophelia Damian [id number] Hannah Rickie 12/26/2021 2 [employer]NA - PLAN B (MEDICARE SUPPLEMENT) Hannah Ophelia Damian [id number] Hannah Rickie 04/26/2022 1 [place] GOVERNMENT [place] Hannah R Rickie [id number] Hannah Damian 04/26/2022 2 [employer] - PLAN B (MEDICARE SUPPLEMENT) Hannah Damian [id number] Hannah Damian Notes Date Note Type Note Provider Name [...] Jacobs NP [address] [place], [address], [place] - [facility] 04/26/2022 19:36:22 OBGyn Episode No OBEpisode recorded.
--- OUTSIDE RECORDS SUMMARY | 2024-05-04 06:13 | XMS_ITS | Patient Health Record ---
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
--- OUTSIDE RECORDS SUMMARY | 2024-05-04 06:13 | XMS_ITS | Encounter Summary ---
Author Organization [facility] Address [address] [place] [address] Care Team Providers Care Umbrella Tipper Machine Name Role Phone Courtney Mendiola MD Primary Care Provider [phone] Reason for Visit * Reason Onset Date Comments Results 05/01/2024 Magnesium result s Encounter Details Date Type Department Care Team (Late st Contact Info) Description 05/01/2024 Telephone [facility] - [facility] [address] [place] [address] Janelle Zacarias MA Results (Magnesium results) Social History Tobacco Use Types Packs/Day Years [...] Progress Notes * Janelle Zacarias MA - 05/02/2024 8:09 AM EST Spoke with the patient said okay thank you. * Dayanara Gates NP - 05/01/2024 4:35 PM EST Noted, yes I would like her to continue the magnesium as long as she is tolerating it well. I do not think that her hands/thumb discomfort is related to the magnesium. * Janelle Zacarias MA - 05/01/2024 4:23 PM EST Spoke with the patient and said thank you, but she wanted to let you know every since she started the magnesium she has had hand discomfort, her thumb is very sore as well. Also asking is she going to have to stay on 500mg of the Magnesium? * Janelle Zacarias MA - 05/01/2024 4:23 PM EST ----- Message from Deya Gates NP sent at 05/01/2024 1:04 PM EST ----- Notify the patient that her magnesium level is normal; please have her continue with current supplementation. Thank you! documented in this encounter Plan of Treatment Upcoming Encounters Date Type Department Care Team (Late st Contact Info) Description 08/03/2024 10:30 AM EDT Office Visit Adult Medicine [address] [address] Adeola Torres PA [address] [place] [address] 03/08/2025 1:00 PM EST Ancillary Procedure [facility] - [facility] 154 300 [facility] 154 [place] [address] documented as of this encounter Visit Diagnoses Not on filedocumented in this encounter Care Teams Umbrella Tipper Machine Relationship Specialty Start Date End Date Courtney Mendiola MD [address] [place] [address] PCP - General Internal Medicine 01/10/24 documented as of this encounter
--- OUTSIDE RECORDS SUMMARY | 2024-05-04 06:13 | XMS_ITS | Encounter Summary ---
Author Organization [facility] [place] [address] Care Team Providers Care Air Conditioning Installer Name Role Phone Courtney Mendiola MD Primary Care Provider [phone] Reason for Visit * Reason Comments Cerumen Impaction Used Debrox x 3 days Encounter Details Date Type Department Care Team (Late st Contact Info) Description 04/10/2024 10:30 AM EST Office Visit Adult Medicine [facility] [address] [place], [place] [phone] Demetrius Zapata PA [address] [place] [address] Bilateral impacted cerumen (Primary Dx); Paroxysmal atrial [...] 2 times daily IMAGING/LABORATORY: None ISIDRO Benton [address] documented in this encounter Plan of Treatment Upcoming Encounters Date Type Department Care Team (Late st Contact Info) Description 08/03/2024 10:30 AM EDT Office Visit [address] [phone] Adeola Torres PA [address] [place] [address] 03/08/2025 1:00 PM EST Ancillary Procedure [facility] - [facility] 154 300 [facility] 154 [place] [address] documented as of this encounter Visit Diagnoses Diagnosis Bilateral impacted cerumen- Primary Impacted cerumen Paroxysmal atrial fibrillation (CMS/HCC) Atrial fibrillation documented in this encounter Care Teams Air Conditioning Installer Relationship Specialty Start Date End Date Courtney Mendiola MD [address] [place] [address] PCP - General Internal Medicine 01/10/24 documented as of this encounter
--- OUTSIDE RECORDS SUMMARY | 2024-05-04 06:14 | XMS_ITS | Encounter Summary ---
Author Organization [facility] [place] [address] Care Team Providers Care Curtain Hemmer Automatic Name Role Phone Courtney Mendiola MD Primary Care Provider [phone] Reason for Visit * Reason Onset Date Comments Med Refill 04/06/2024 Entresto 49-51 Encounter Details Date Type Department Care Team ([facility] st Contact Info) Description 04/06/2024 Telephone [facility] - [facility] [address] 300 [facility] 102 [place] [address] Janelle Zacarias MA Med Refill (Entresto 49-51 [...] and spoke with the rep George from [employer] and she explained the patient has to submit a receipt of her current medications costing more then $838, and also we need to correct the form already sent and resend it to them so the patient can get approved for the patient assistance program thru [employer] I called Deny (son) and he corrected that it's not [employer] it's [employer], he also stated all Dr. Hensley has to do is call them and verbally correct the problem we don't have to resend the form this is what Ryan [employer]root told him. The number to call is [phone]. * Krystal Powell - 04/13/2024 11:52 AM EST Deny called back, he spoke with [facility] and confirmed the form was received however the incorrectbox was checked off. The form is checked that she is not receiving outpatient care when in fact sheis. [facility] is requesting we call them back to verbally confirm that she is receiving out patient care. Ngozi can be reached at [phone]. Please call deny back at [phone]. * Krystal Powell - 04/11/2024 9:28 AM EST The patients son Deny calling back for an update. Please call him back at [phone]. * Janelle Zacarias MA - 04/06/2024 2:52 PM EST Deny the patient son called and is also asking for an RX to be faxed to him so he may submit to [facility] so his mom can receive her medication which she [facility]. He said he already received the prescriber part which you filled out already but forgot to ask for the RX to submit with the paperwork. documented in this encounter Plan of Treatment Upcoming Encounters Date Type Department Care Team (Late st Contact Info) Description 08/03/2024 10:30 AM EDT Office Visit Adult Medicine [address] [address] Adeola Torres PA [address] [place] [address] 03/08/2025 1:00 PM EST Ancillary Procedure [facility] Associates - [address] [place] [address] documented as of this encounter Visit Diagnoses Not on filedocumented in this encounter Care Teams Curtain Hemmer Automatic Relationship Specialty Start Date End Date Courtney Mendiola MD [address] [place] [address] PCP - General Internal Medicine 01/10/24 documented as of this encounter
--- OUTSIDE RECORDS SUMMARY | 2024-05-04 06:14 | XMS_ITS | Encounter Summary ---
Author Organization [facility] Address [address] [place] [address] Care Team Providers Care Apprentice Lineman Third Step Name Role Phone Courtney Mendiola MD Primary Care Provider [phone] Reason for Visit * Reason Comments Follow-up Encounter Details Date Type Department Care Team ([facility] Contact Info) Description 04/05/2024 2:30 PM EST Office Visit Adult Medicine [address] [phone] Courtney Mendiola MD [address] [place] [address] Essential hypertension, benign (Primary Dx); Hypercholesterolemia ; [...] was advised removal. She has appointment with [facility] for osteoarthritis. ROS: Review of systems: Pertinent items are noted in HPI PAST MEDICAL HISTORY: Patient Active Problem List Diagnosis Date Noted Other fatigue 03/13/2024 Hypomagnesemia 03/13/2024 Vulvar burning 01/11/2024 Dilated cardiomyopathy ([facility]/HCC) 05/25/2023 Thyroid nodule 02/13/2021 Dyspnea on exertion 06/10/2020 Tricuspid valve insufficiency 06/10/2020 Vasovagal syncope 06/10/2020 Multiple thyroid nodules 03/25/2020 Mitral valve insufficiency 12/31/2015 Paroxysmal atrial fibrillation ([facility]/HCC) 11/26/2015 Cerebrovascular accident (CVA) due to thrombosis of left anterior cerebral artery ([facility]) 08/23/2015 CKD (chronic kidney disease) stage 3, GFR 30-59 ml/min ([facility]) 05/17/2015 Actinic keratosis 10/17/2014 IBS (irritable bowel [...] also examined and questioned by my physician biology research assistant student and is in agreement with [...] Value Ref Range Date Time Interrogation Session [id number] Type Interrogation Session Remote Implantable Pulse Generator Lending Consultant MDT Implantable Pulse Generator Type FINANCIAL SOLUTIONS ADVISOR-P Implantable Pulse Generator Model Essie Quad FINANCIAL SOLUTIONS ADVISOR-P [id number] Implantable Pulse Generator Serial Number [id number] Implantable Pulse Generator Implant Date 20230506 Battery Remaining Longevity 138.0 Battery Voltage 3.040 Battery COMPUTATIONAL PHYSICIST Trigger 2.595 Battery Status Middle of Service Shane Statistic RA Percent Paced 0.00 Shane Statistic RV Percent Paced 94.93 FINANCIAL SOLUTIONS ADVISOR Statistic LV Percent Paced 0.00 FINANCIAL SOLUTIONS ADVISOR Statistic FINANCIAL SOLUTIONS ADVISOR Percent Paced 0.00 Lead Channel Impedance Value [...] (NBG Code) VVIR Ventricular chambers paced during FINANCIAL SOLUTIONS ADVISOR pacing. RVOnly Shane Setting Lower Rate Limit [...] 10:30 AM EDT Office Visit Adult Medicine [address] [phone] Adeola Torres PA [address] [place] [address] 03/08/2025 1:00 PM EST Ancillary Procedure [facility] - [facility] [address] 300 [facility] 154 [place] [phone] documented as of this encounter Visit Diagnoses [...] documented as of this encounter Care Teams Apprentice Lineman Third Step Relationship Specialty Start Date End Date Courtney Mendiola MD [address] [place] [address] PCP - General Internal Medicine 01/10/24 documented as of this encounter
--- OUTSIDE RECORDS SUMMARY | 2024-05-04 06:14 | XMS_ITS | Encounter Summary ---
Author Organization [facility] Address [address] [place] [address] Care Team Providers Care Stator Tester Name Role Phone Courtney Mendiola MD Primary Care Provider [phone] Reason for Visit * Imaging (Routine) - Authorized Specialty Diagnoses / Procedures Referred By Contac t Referred To Contact Cardiology Diagnoses Other fatigue Dyspnea on exertion Procedures Transthoracic echocardiogram (TTE) complete with PRN contrast, bubble, strain, and 3D order panel IA TTE W 2D IMAGE COMPLETE W DOPPLER ECHO & COLOR FLOW DOPPLER ECHO IA YOLANDA 2D COMPLETE W/CONTRAST OR W & WO CONTRAST WITH DOPPLER Dayanara Gates NP [address] [place] [address] Phone: tel: fax: [facility] Referral ID Status Reason Start Date Expiration Date V isits Requested Visits Authorized [id number] Authorized 03/13/2024 03/13/2025 1 1 Encounter Details Date Type Department Care Team (Latest Contact Info) Description 04/24/2024 12:30 PM EST Ancillary Procedure [facility] - [address] [place] [address] Other fatigue; Dyspnea on exertion Social History [...] 10:30 AM EDT Office Visit Adult Medicine [facility] [address] [place] [address] Adeola Torres PA [address] [place] [address] 03/08/2025 1:00 PM EST Ancillary Procedure [facility] - [address] [place] [address] documented as of this encounter Procedures Procedure [...] 46 mL CV PACS Left Atrium Minor Fritch 6.8 cm CV PACS Left Atrium Major Fritch 6.7 cm CV PACS LA Area Sys [...] abnormality documented in this encounter Care Teams Stator Tester Relationship Specialty Start Date End Date Courtney Mendiola MD [address] [place] [address] PCP - General Internal Medicine 01/10/24 documented as of this encounter
--- OUTSIDE RECORDS SUMMARY | 2024-05-04 06:14 | XMS_ITS | Encounter Summary ---
Author Organization [facility] Address [address] [place] [address] Care Team Providers Care Bike Designer Name Role Phone Courtney Mendiola MD Primary Care Provider [phone] Reason for Visit * Reason Onset Date Comments Med Refill 04/20/2024 Encounter Details Date Type Department Care Team (Late st Contact Info) Description 04/20/2024 Telephone [facility] - [facility] [address] [facility] [address] [place] [phone] Chemo Hensley MD [address] [place] [address] Med Refill Social History Tobacco Use Types [...] she switched her insurance to [employer] from [employer]. Patient is requesting a refill for Eliquis 2.5 mg 2 tablets a day. Please send 90 day supply, pharmacy is confirmed. documented in this encounter Plan of Treatment Upcoming Encounters Date Type Department Care Team (Late st Contact Info) Description 08/03/2024 10:30 AM EDT Office Visit Adult Medicine [facility] [address] [place] [address] Adeola Torres PA [address] [place] [address] 03/08/2025 1:00 PM EST Ancillary Procedure [facility] - [facility] 154 300 [facility] 154 [place] [address] documented as of this encounter Visit Diagnoses Not on filedocumented in this encounter Discontinued Medications Medication Sig Discontinue Reason Start Date End Da te apixaban (ELIQUIS) 2.5 mg tablet Take 1 tablet (2.5 mg total) by mouth 2 (two) times a day. Reorder 04/11/2024 04/20/2024 documented as of this encounter Care Teams Bike Designer Relationship Specialty Start Date End Date Courtney Mendiola MD [address] [place] [address] PCP - General Internal Medicine 01/10/24 documented as of this encounter
--- OUTSIDE RECORDS SUMMARY | 2024-05-04 06:14 | XMS_ITS | Encounter Summary ---
Author Organization [facility] Address [address] [place] [address] Care Team Providers Care Community Health Program Representative Name Role Phone Courtney Mendiola MD Primary Care Provider [phone] Reason for Visit * Reason Onset Date Comments medication 04/06/2024 Encounter Details Date Type Department Care Team (Late st Contact Info) Description 04/06/2024 Telephone [facility] - [facility] [address] [facility] [address] [place] [address] Chemo Hensley MD [address] [place] [address] medication Social History Tobacco Use Types Packs/Day [...] that he needs to send to the [facility] in order for them to cover and [...] 02/21/24.Please give him a call back at [phone]. * Beckie Quinteros - 04/06/2024 11:31 AM EST Patients son Jose Manuel called requesting a fax for his mothers Eliquis prescription. The Eliquis 25 mg 90 day supply is not covered through her insurance and she is apart of [facility] assistance. He needs this sent to his person fax at [phone]. documented in this encounter Plan of Treatment Upcoming Encounters Date Type Department Care Team (Late st Contact Info) Description 08/03/2024 10:30 AM EDT Office Visit Adult Medicine [address] [address] Adeola Torres PA [address] [place] [address] 03/08/2025 1:00 PM EST Ancillary Procedure [facility] - [facility] [address] [facility] 154 [place] [address] documented as of this encounter Visit Diagnoses Not on filedocumented in this encounter Care Teams Community Health Program Representative Relationship Specialty Start Date End Date Courtney Mendioal MD [address] [place] [address] PCP - General Internal Medicine 01/10/24 documented as of this encounter
--- OUTSIDE RECORDS SUMMARY | 2024-05-04 06:14 | XMS_ITS | Encounter Summary ---
Author Organization [facility] Address [address] [place] [address] Care Team Providers Care Key Holder Name Role Phone Courtney Mendiola MD Primary Care Provider [phone] Encounter Details Date Type Department Care Team (Late st Contact Info) Description 04/04/2024 5:25 PM EST Ancillary Procedure [facility] Cardiology [facility] - [facility] [address] [facility] 154 [place] [phone] Social History Tobacco Use Types Packs/Day Years [...] 10:30 AM EDT Office Visit Adult Medicine [address] [address] Adeola Torres PA [address] [place] [address] 03/08/2025 1:00 PM EST Ancillary Procedure [facility] Cardiology [facility] - [facility] [address] [facility] 154 [place] [address] documented as of this encounter Procedures Procedure Name Priority Date/Time Associated Diagnosis Comments CARDIAC DEVICE CHECK- REMOTE- MURJ Routine 04/04/2024 5:20 PM EST documented in this encounter Results * Cardiac device check - Remote- MURJ (04/04/2024 5:20 PM EST) Date Time Interrogation Session [id number] CV DEVICE CHECK Type Interrogation Session Remote CV DEVICE CHECK Implantable Pulse Generator Underpresser Hand MDT CV DEVICE CHECK Implantable Pulse Generator Type BOATSWAIN'S MATE-P CV DEVICE CHECK Implantable Pulse Generator Model Essie Quad BOATSWAIN'S MATE-P [id number] CV DEVICE CHECK Implantable Pulse Generator Serial Number [id number] CV DEVICE CHECK Implantable Pulse Generator Implant Date 20230506 CV DEVICE CHECK Battery Remaining Longevity 138.0 CV DEVICE CHECK Battery Voltage 3.040 CV D EVICE CHECK Battery LAUNDRY ROUTE DRIVER Trigger 2.595 CV DEVICE CHECK Battery Status Middle of Service CV DEVICE CHECK Shane Statistic RA Percent Paced 0.00 CV DEVICE CHECK Shane Statistic RV Percent Paced 94.93 CV DEVICE CHECK BOATSWAIN'S MATE Statistic LV Percent Paced 0.00 CV DEVICE CHECK BOATSWAIN'S MATE Statistic BOATSWAIN'S MATE Percent Paced 0.00 CV DEVICE CHECK Lead [...] CV DEVICE CHECK Ventricular chambers paced during BOATSWAIN'S MATE pacing. RVOnly CV DEVICE CHECK Shane Setting [...] on filedocumented in this encounter Care Teams Key Holder Relationship Specialty Start Date End Date Courtney Mendiola MD [address] [place] [address] PCP - General Internal Medicine 01/10/24 documented as of this encounter
--- OUTSIDE RECORDS SUMMARY | 2024-05-04 06:14 | XMS_ITS | Encounter Summary ---
Author Organization [facility] Address [address] [place] [address] Care Team Providers Care Program Or Project Administrator Name Role Phone Courtney Mendiola MD Primary Care Provider [phone] Encounter Details Date Type Department Care Team (Late st Contact Info) Description 04/26/2024 9:15 PM EST Ancillary Procedure [facility] Cardiology [facility] - [facility] 154 300 [facility] 154 [place] [phone] Social History Tobacco Use Types Packs/Day Years [...] 10:30 AM EDT Office Visit Adult Medicine [address] [address] Adeola Torres PA [address] [place] [address] 03/08/2025 1:00 PM EST Ancillary Procedure [facility] Cardiology [facility] - [facility] [address] [facility] 154 [place] [phone] documented as of this encounter Procedures Procedure Name Priority Date/Time Associated Diagnosis Comments CARDIAC DEVICE CHECK- REMOTE- MURJ Routine 04/26/2024 9:14 PM EST documented in this encounter Results * Cardiac device check - Remote- MURJ (04/26/2024 9:14 PM EST) Date Time Interrogation Session [id number] CV DEVICE CHECK Type Interrogation Session Remote CV DEVICE CHECK Implantable Pulse Generator Infrastructure Architect MDT CV DEVICE CHECK Implantable Pulse Generator Type SEPARATOR INSERTER-P CV DEVICE CHECK Implantable Pulse Generator Model Essie Quad SEPARATOR INSERTER-P [id number] CV DEVICE CHECK Implantable Pulse Generator Serial Number [id number] CV DEVICE CHECK Implantable Pulse Generator Implant Date 20230506 CV DEVICE CHECK Battery Remaining Longevity 139.0 CV DEVICE CHECK Battery Voltage 3.040 CV D EVICE CHECK Battery HVAC CONTROLS TECHNICIAN Trigger 2.595 CV DEVICE CHECK Battery Status Middle of Service CV DEVICE CHECK Shane Statistic RA Percent Paced 0.00 CV DEVICE CHECK Shane Statistic RV Percent Paced 97.84 CV DEVICE CHECK SEPARATOR INSERTER Statistic LV Percent Paced 0.00 CV DEVICE CHECK SEPARATOR INSERTER Statistic SEPARATOR INSERTER Percent Paced 0.00 CV DEVICE CHECK Lead [...] CV DEVICE CHECK Ventricular chambers paced during SEPARATOR INSERTER pacing. RVOnly CV DEVICE CHECK Shane Setting [...] Stable * No overt HF present us Andrzje Perez MD CV IMPLANTABLE CARDIAC DEV ICE PROCEDURES Final Result documented in this encounter Visit Diagnoses Not on filedocumented in this encounter Care Teams Program Or Project Administrator Relationship Specialty Start Date End Date Courtney Mendiola MD [address] [place] [address] PCP - General Internal Medicine 01/10/24 documented as of this encounter
--- OUTSIDE RECORDS SUMMARY | 2024-05-04 06:14 | XMS_ITS | Clinical Summary ---
Author Organization [facility] [address] [facility] Address [address] [place] [address] Phone Care Team Providers Care Offset Machine Operator Name Role Phone Courtney Mendiola MD Primary Care Provider [phone] Allergies Active Allergy Reactions Criticality Noted Date [...] Encounters Date Type Department Care Team Description 05/01/2024 Telephone [facility] - [address] [place] [address] Janelle Zacarias MA Results (Magnesium results) 04/26/2024 9:15 PM EST Ancillary Procedure [facility] - [address] [place] [address] 04/24/2024 12:30 PM EST Ancillary Procedure [facility] - [address] [place] [address] Other fatigue; Dyspnea on exertion 04/20/2024 Telephone [facility] - [address] [place] [address] Chemo Hensley MD Med Refill 04/10/2024 10:30 AM EST Office Visit Adult [address] [address] Demetrius Zapata PA Bilateral impacted cerumen (Primary Dx); Paroxysmal atrial fibrillation (CMS/HCC) 04/06/2024 Telephone [facility] - [facility] 102 [address] [facility] 102 [place] [address] Janelle Zacarias MA Med Refill (Entresto 49-51 ) 04/06/2024 Telephone [facility] - [facility] 154 300 [facility] 154 [place] [address] Chemo Hensley MD medication 04/05/2024 2:30 PM EST Office Visit [address] [address] Courtney Mendiola MD Essential hypertension, benign (Primary Dx); Hypercholesterolemia; Gastroesophageal reflux disease without esophagitis; Cerumen debris on tympanic membrane of both ears 04/04/2024 5:25 PM EST Ancillary Procedure [facility] - [facility] 154 [address] [facility] 154 [place] [address] 03/22/2024 Telephone [facility] - [facility] 154 [address] [facility] 154 [place] [address] Chemo Hensley MD Medication Problem 03/21/[address] [address] Courtney Mendiola MD walkin 03/13/2024 11:10 AM EST Office Visit [facility] [address] [facility] 102 [place] [address] Dayanara Gates NP Dilated cardiomyopathy (CMS/HCC) (Primary [...] [address] [place] [address] Encounter for adjustment or management of cardiac device 03/07/2024 3:20 PM EST Ancillary Procedure [facility] - [address] [place] [address] 02/22/2024 Telephone [facility] - [address] [place] [address] Chemo Hensley MD med paperwork 02/08/2024 Telephone [facility] - [address] [place] [address] Janelle Zacarias MA Patient Assistance Form (Eliquis ) from Last 3 Months Surgical History Surgery Date Site/Laterality Comments APPENDECTOMY PROCEDURE: HISTORICAL APPENDECTOMY; COMMENT: as a 12-year-old HYSTERECTOMY PROCEDURE: HISTORICAL HYSTERECTOMY; COMMENT: at the age of 39 CATARACT EXTRACTION PROCEDURE: HISTORICAL CATARACT REMOVAL; COMMENT: at the age of 61 both eyes COLONOSCOPY 03/19/2011 PROCEDURE: HISTORICAL COLONOSCOPY; COMMENT: 7 mm rectal polyp: Mixed hyperplastic and adenomatous polyp. ESOPHAGOGASTRODUODENOSCOPY 03/06/2013 PROCEDURE: NV ESOPHAGOGASTRODUODENOSCOPY TRANSORAL DIAGNOSTIC; COMMENT: normal Medical History [...] 10:30 AM EDT Office Visit Adult Medicine [address] [address] Adeola Torres PA [address] [place] [address] 03/08/2025 1:00 PM EST Ancillary Procedure [facility] - [address] [place] [address] Health Maintenance Due Date Last Done Comments [...] this topic Medical Devices Implanted Type Area Demand Generator Manager Device Identifier Shelf Expiration Date Model / Serial / Lot Medt-Card Essie Quad Networking Specialist-P [id number] Implanted:08/2023 (Quantity not on file) Cardiac INFECTION PREVENTION SPECIALIST-P [employer] - CARDIAC RHYTH-CRDM ESSIE QUAD INFECTION PREVENTION SPECIALIST-P [id number] / [id number] / Procedures Procedure Name Priority Date/Time Associated Diagnosis Comments MAGNESIUM Routine 05/01/2024 9:29 AM EST Hypomagnesemia CARDIAC DEVICE CHECK- REMOTE- MURJ Routine 04/26/2024 9:14 PM EST TRANSTHORACIC ECHOCARDIOGRAM (TTE) COMPLETE Routine 04/24/2024 1:19 PM EST Other fatigue Dyspnea on exertion ECHO 04/24/2024 CARDIAC DEVICE CHECK- REMOTE- MURJ Routine 04/04/2024 [...] MAGNESIUM Routine 03/02/2024 10:23 AM EST Hypomagnesemia BASIC METABOLIC PANEL Routine 01/31/2024 10:16 AM EST Dilated cardiomyopathy (CMS/HCC) Essential hypertension, benign Paroxysmal atrial fibrillation (CMS/HCC) LIPID PANEL Routine 12/10/2023 HM DEPRESSION SCREENING Routine 03/26/2023 DXA BONE DENSITY STUDY 1+ SITS AXIAL SKEL Routine 05/29/2021 11:19 AM EDT Other specified disorders of bone density and structure, unspecified site from Last 3 Months or Most Recently Relevant to Health Maintenance Results * Magnesium (05/01/2024 9:29 AM EST) Only the most recent of3 resultswithin the time period is included. Magnesium 2.0 1.9 - 2.6 mg/dL LAB CHEMISTRY METHOD 05/01/2024 12:49 PM EST [facility] Blood Venous blood specimen / Unknown Venipuncture / Unknown 05/01/2024 9:29 AM EST 05/01/2024 9:29 AM EST Dayanara Gates NP LAB BLOOD ORDERABLES Final Result [facility] [address] [place] [address], * Cardiac device check - Remote- MURJ (04/26/2024 9:14 PM EST) Only the most recent of3 resultswithin the time period is included. Date Time Interrogation Session [id number] CV DEVICE CHECK Type Interrogation Session Remote CV DEVICE CHECK Implantable Pulse Generator Demand Generator Manager MDT CV DEVICE CHECK Implantable Pulse Generator Type INFECTION PREVENTION SPECIALIST-P CV DEVICE CHECK Implantable Pulse Generator Model Essie Quad INFECTION PREVENTION SPECIALIST-P [id number] CV DEVICE CHECK Implantable Pulse Generator Serial Number [id number] CV DEVICE CHECK Implantable Pulse Generator Implant Date [id number] CV DEVICE CHECK Battery Remaining Longevity 139.0 CV DEVICE CHECK Battery Voltage 3.040 CV D EVICE CHECK Battery SURVEYING TEACHER Trigger 2.595 CV DEVICE CHECK Battery Status Middle of Service CV DEVICE CHECK Shane Statistic RA Percent Paced 0.00 CV DEVICE CHECK Shane Statistic RV Percent Paced 97.84 CV DEVICE CHECK INFECTION PREVENTION SPECIALIST Statistic LV Percent Paced 0.00 CV DEVICE CHECK INFECTION PREVENTION SPECIALIST Statistic INFECTION PREVENTION SPECIALIST Percent Paced 0.00 CV DEVICE CHECK Lead [...] CV DEVICE CHECK Ventricular chambers paced during INFECTION PREVENTION SPECIALIST pacing. RVOnly CV DEVICE CHECK Shane Setting [...] 46 mL CV PACS Left Atrium Minor Tridell 6.8 cm CV PACS Left Atrium Major Tridell 6.7 cm CV PACS LA Area Sys [...] NP CV ECHO PROCEDURES Fi nal Result * Echo (04/24/2024) Anatomical Region Laterality Modality Other Provider [facility] CV HISTORICAL CONV PROCE DURES Final Result * Thyroid stimulating hormone with reflex to free t4 and free t3 (03/13/2024 1:46 PM EST) [facility] TSH 1.33 0.40 - 4.00 mcIU/mL LAB CHEMISTRY METHOD 03/13/2024 6:59 PM EST [facility] Blood Venous blood specimen / Unknown Venipuncture / Unknown 03/13/2024 1:46 PM EST 03/13/2024 1:46 PM EST Dayanara Gates NP LAB BLOOD ORDERABLES Final Result [facility] [address] [place] [address], [place] [phone] * CBC auto differential (03/13/2024 1:46 PM EST) [facility] WBC 8.7 4.8 - 10.8 K/[facility] LAB HEMETOLOGY METHOD 03/13/2024 4:53 PM [facility] RBC 4.20 3.80 - 4.80 M/mcL LAB HEMETOLOGY METHOD 03/13/2024 4:53 PM [facility] Hemoglobin 11.9 11.5 - 16.0 g/dL LAB HEMETOLOGY METHOD 03/13/2024 4:53 PM [facility] Hematocrit 37.0 35.0 - 47.0 % LAB HEMETOLOGY METHOD 03/13/2024 4:53 PM [facility] MCV 88.7 79.0 - 98.0 FL LAB HEMETOLOGY METHOD 03/13/2024 4:53 PM [facility] MCH 28.5 27.0 - 32.0 pcg LAB HEMETOLOGY METHOD 03/13/2024 4:53 PM [facility] MCHC 32.2 32.0 - 37.0 g/dL LAB HEMETOLOGY METHOD 03/13/2024 4:53 PM [facility] RDW 13.8 11.0 - 15.0 % LAB HEMETOLOGY METHOD 03/13/2024 4:53 PM [facility] Platelets 202 130 - 400 K/[facility] LAB HEMETOLOGY METHOD 03/13/2024 4:53 PM [facility] MPV 10.6 7.0 - 11.0 FL LAB HEMETOLOGY METHOD 03/13/2024 4:53 PM [facility] NRBC 0.0 <1.0 % LAB HEMETOLOGY METHOD 03/13/2024 4:53 PM [facility] NRBC Absolute 0.00 <0.10 K/[facility] LAB HEMETOLOGY METHOD 03/13/2024 4:53 PM [facility] Neutrophils Relative 52.8 % LAB HEMETOLOGY METHOD 03/13/2024 4:53 PM [facility] Lymphocytes Relative 36.5 % LAB HEMETOLOGY METHOD 03/13/2024 4:53 PM [facility] Monocytes Relative 9.2 % LAB HEMETOLOGY METHOD 03/13/2024 4:53 PM [facility] Eosinophils Relative 0.9 % LAB HEMETOLOGY METHOD 03/13/2024 4:53 PM [facility] Basophils Relative 0.3 % LAB HEMETOLOGY METHOD 03/13/2024 4:53 PM [facility] Immature Granulocytes Relative 0.3 % LAB HEMETOLOGY METHOD 03/13/2024 4:53 PM [facility] Neutrophils Absolute 4.61 1.50 - 7.00 K/mcL LAB HEMETOLOGY METHOD 03/13/2024 4:53 PM [facility] Lymphocytes Absolute 3.19 1.00 - 5.00 K/mcL LAB HEMETOLOGY METHOD 03/13/2024 4:53 PM [facility] Monocytes Absolute 0.80 0.20 - 1.00 K/mcL LAB HEMETOLOGY METHOD 03/13/2024 4:53 PM [facility] Eosinophils Absolute 0.08 0.00 - 0.50 K/mcL LAB HEMETOLOGY METHOD 03/13/2024 4:53 PM [facility] Basophils Absolute 0.03 0.00 - 0.20 K/mcL LAB HEMETOLOGY METHOD 03/13/2024 4:53 PM [facility] Immature Granulocytes Absolute 0.03 0.00 - 0.03 K/mcL LAB HEMETOLOGY METHOD 03/13/2024 4:53 PM [facility] Blood Venous blood specimen / Unknown Venipuncture / Unknown 03/13/2024 1:46 PM EST 03/13/2024 1:46 PM EST Dayanara Gates PERSONNEL SUPERVISOR LAB BLOOD ORDERABLES Final Result Performing Organization Address City/[facility]/ZIP Co de Phone Number [facility] [address] [place] [address], [place] [phone] * (ABNORMAL) B-type natriuretic peptide (03/13/2024 1:46 PM EST) BNP 313(H) <=100 pcg/mL LAB CHEMISTRY METHOD 03/13/2024 5:45 PM EST [facility] Blood Venous blood specimen / Unknown Venipuncture / Unknown 03/13/2024 1:46 PM EST 03/13/2024 1:46 PM EST Dayanara Gates PERSONNEL SUPERVISOR LAB BLOOD ORDERABLES Final Result Performing Organization Address [facility] Co de Phone Number [facility] [address] [place] [address], [place] [phone] * CARDIAC DEVICE CHECK- IN CLINIC- MURJ (03/08/2024 1:35 PM EST) Date Time Interrogation Session [id number] CV DEVICE CHECK Implantable Pulse Generator Demand Generator Manager MDT CV DEVICE CHECK Implantable Pulse Generator Type INFECTION PREVENTION SPECIALIST-P CV DEVICE CHECK Implantable Pulse Generator Model Essie Quad INFECTION PREVENTION SPECIALIST-P [id number] CV DEVICE CHECK Implantable Pulse Generator Serial Number [id number] CV DEVICE CHECK Implantable Pulse Generator Implant [...] CV DEVICE CHECK Ventricular chambers paced during INFECTION PREVENTION SPECIALIST pacing. RV CV DEVICE CHECK Shane Setting [...] thresholds reviewed and tested * Presenting Rhythm: BUSINESS AREA DIRECTOR 70s * No R waves @ VVI [...] thresholds reviewed and tested * Presenting Rhythm: BUSINESS AREA DIRECTOR 70s * No R waves @ VVI [...] LAB CHEMISTRY METHOD 01/31/2024 1:41 PM EST [facility] Potassium 4.0 3.5 - 5.5 mmol/L LAB CHEMISTRY METHOD 01/31/2024 1:41 PM EST [facility] Chloride 109 96 - 110 mmol/L LAB CHEMISTRY METHOD 01/31/2024 1:41 PM EST [facility] CO2 23 21 - 32 mmol/L LAB CHEMISTRY METHOD 01/31/2024 1:41 PM [facility] Anion Gap 9 3 - 11 LAB CHEMISTRY METHOD 01/31/2024 1:41 PM [facility] Glucose 93 70 - 100 mg/dL LAB CHEMISTRY METHOD 01/31/2024 1:41 PM [facility] BUN 17 5 - 25 mg/dL LAB CHEMISTRY METHOD 01/31/2024 1:41 PM [facility] Creatinine 0.96 0.50 - 1.10 mg/dL LAB CHEMISTRY METHOD 01/31/2024 1:41 PM [facility] eGFR 57(L) >=60 mL/min/1. 73m2 LAB CHEMISTRY METHOD 01/31/2024 1:41 PM [facility] Comment:Calculation based on the??Chronic Kidney Disease Epidemiology Collaboration (CKD-EPI) equation refit??without adjustment for race. BUN/Creatinine Ratio 17.7 LAB CHEMISTRY METHOD 01/31/2024 1:41 PM [facility] Calcium 8.9 8.5 - 10.5 mg/dL LAB CHEMISTRY METHOD 01/31/2024 1:41 PM [facility] Blood Venous blood specimen / Unknown Venipuncture / Unknown 01/31/2024 10:16 AM EST 01/31/2024 10:16 AM EST Dayanara Gates NP LAB BLOOD ORDERABLES Final Result [facility] [address] [place] [address], * Lipid panel (12/10/2023) LDL/HDL Ratio 3 0 - 4 Triglycerides 104 0 - 150 mg/dL Cholesterol 158 0 - 200 mg/dL HDL 46 >=40 mg/dL LDL Cholesterol 92 0 - 100 mg/dL Blood Venous blood specimen / Unknown Historical Provider LAB BLOOD ORDERABLES Margarita l Result * Depression Screening (03/26/2023) Depression Screening Abstracted us Historical Provider HEALTH MAINTENANCE Final Result * [...] (World Health Organization Fracture Risk Assessment) [facility] Department of Internal Medicine recommends using National [...] alternative screening schedule based on aaron Varghese., [facility] March 19, 2011 for patients [...] (World Health Organization Fracture Risk Assessment) [facility] Department of Internal Medicine recommendsusing National Osteoporosis [...] alternative screening schedule based on aaron Varghese., NEJMJanuary 2011 for patients with osteopenia (based on hip BMD T-score) is as follows: * advanced osteopenia (T scores -2.00 to -2.49), BMD testing every year * moderate osteopenia (T scores -1.50 to -1.99), BMD testing every 5years mild osteopenia or normal BMD (T scores -1.50 and higher), BMD testingevery 15 years Katharine FELIX IM DXA PROCEDURES Final Result from Last 3 Months or Most Recently Relevant to Health Maintenance Insurance MEDICARE [facility] Advance Directives Documents on File Type Date Recorded Patient Bagel Maker Expl anation Health Care Decision (hx) 08/07/2015 [...] (hx) 08/07/2015 AD MATHIS DIRECTIVE Care Teams Offset Machine Operator Relationship Specialty Start Date End Date Courtney Mendiola MD [address] [place] [phone] PCP - General Internal Medicine 01/10/24
--- OUTSIDE RECORDS SUMMARY | 2024-05-04 06:14 | XMS_ITS | Encounter Summary ---
Author Organization [facility] [place] [address] Care Team Providers Care Proposal Lead Writer Name Role Phone Courtney Mendiola MD Primary Care Provider [phone] Reason for Visit * Reason Onset Date Comments Patient Assistance Form 02/08/2024 Eliquis Encounter Details Date Type Department Care Team (Late st Contact Info) Description 02/08/2024 Telephone [facility] - [facility] [address] [facility] [address] [place] [address] Janelle Zacarias MA Patient Assistance Form (Eliquis [...] patient the fax machine number by Dr. Portland desk. After we receive I will give [...] was received. Please call him back at [phone]. * Krystal Powell - 02/16/2024 10:17 AM EST Patients son Jose Manuel called, he is asking if the form can be faxed to him directly at [phone]. * Janelle Zacarias MA - 02/08/2024 1:53 PM EST Form was filled out by [facility] and given to me, contact the patient son (Jose Manuel) asked to have form mailed which I made a copy and placed in the mail for the patient to fill out her part and fax to [employer]. documented in this encounter Plan of Treatment Upcoming Encounters Date Type Department Care Team (Late st Contact Info) Description 08/03/2024 10:30 AM EDT Office Visit Adult Medicine [address] [address] Adeola Torres PA [address] [place] [address] 03/08/2025 1:00 PM EST Ancillary Procedure [facility] - [facility] [address] [facility] [address] [place] [phone] documented as of this encounter Visit Diagnoses Not on filedocumented in this encounter Care Teams Proposal Lead Writer Relationship Specialty Start Date End Date Courtney Mendiola MD [address] [place] [phone] PCP - General Internal Medicine 01/10/24 documented as of this encounter
== END 2024-05-04 06:11 | disposition home or self-care (01) ==
LOC: CF 06:10
PROVIDERS: Visit Provider Internal Medicine
DX: M16.12 Unilateral primary osteoarthritis, left hip (principal); M25.552 Pain in left hip
CPT/HCPCS: 20610; 77002; J2003; J2795; J3301; Q9967

== ENCOUNTER 2024-05-04 09:44 | Outpatient (AMB) | payer MEDICARE, OTHER, SELFPAY ==
[2024-05-04 09:56] VITALS: BP 126/68; PULSE 78; O2SAT 95
--- NOTE | 2024-05-04 09:56 | A.OFFVIS_ITS ---
Vital Signs 05/04/24 09:56 05/04/24 11:24 BP 126/68 136/68 Blood Pressure Location Rt brachial Rt brachial Position Sitting Sitting Pulse 78 76 Pulse Source Pulse Oximeter Pulse Oximeter Pulse Oximetry (%) 95 95 Oxygen Delivery Method Room Air Room Air Comment Pre-Op Post-Op Intake Visit Reasons: left hip inj w/ fluoro Allergies codeine Allergy (Unknown, Verified 04/28/24 10:27) Unknown raloxifene [Evista] Allergy (Unknown, Verified 04/28/24 10:27) Unknown Hydrocodone Bitartrate Allergy (Unknown, Uncoded 04/28/24 10:27) Unknown HPI HPI left hip inj w/ fluoro: Details: Patient presents for scheduled procedure. Denies any recent cough, cold, infection, fever or other significant changes in medical history since last o ffice visit. [facility] Social History Patient Tobacco Use Status: Never used Tobacco Current occupational status: retired Physical Exam Vital Signs: Last Vital Signs Pulse 76 05/04/24 11:24 BP 136/68 05/04/24 11:24 Pulse Ox 95 05/04/24 11:24 Oxygen Delivery Method Room Air 05/04/24 11:24 Office Procedures AMB Joint Injection/Aspiration Joint Injection/Aspiration Details: Hip Intra-articular Injection, fluoroscopy guided, Left After informed written consent was obtained, the patient was placed in the lateral position. The skin was prepped with Chloroprep, and draped in a sterile fashion. With the use of fluroscopy the hip joint was identified. With a 25- gauge 1.5 hypodermic needle 0.75% lidocaine was injected subcutaneously over the entry site. A 22-gauge 3.5 spinal needle was then advanced toward the junction of the joint capsule and femoral neck Once in position, and after negative aspiration, 0.5mL of Omnipaque was injected outlining the joint capsule followed by injection of 40mg Kenalog mixed with 0.5% ropivacaine (3mL total). There was no evidence of paresthesias throughout needle placement. The stylet was replaced and then the needle was withdrawn. The patient tolerated the proce dure well and there was no evidence of procedural complications. EBL: <1cc Coding 01313 - Large joint Procedure code (CPT) selection complete Assessment & Plan Assessment & Plan (1) Arthritis of left hip: Code(s): M16.12 - Unilateral primary osteoarthritis, left hip Category: Medical Plan Patient is status post intra-articular left hip injection under fluoroscopy. Patient tolerated procedure well and was discharged home in stable condition with discharge instructions. All questions were answered. We will follow-up via telephone or in clinic to assess response to therapy. A follow-up appointment was made during today's visit. Orders: Orders FL guidance in treatment room Today M16.12 - Unilateral primary osteoarthritis, left hip, M25.552 - Pain in left hip Coding Level of Care Code Procedure Only Diagnoses Arthritis of left hip M16.12 CPT Codes Coding - 12096 Large joint: 79592 - Large joint ([id number])
[2024-05-04 11:24] VITALS: BP 136/68; PULSE 76; O2SAT 95
== END 2024-05-04 11:27 | disposition home or self-care (01) ==
LOC: HO.PMCPRC 09:44
PROVIDERS: PCP Internal Medicine; Visit Provider Internal Medicine
DX: M16.12 Unilateral primary osteoarthritis, left hip (principal)
CPT/HCPCS: 20610; 77002

== ENCOUNTER 2024-06-02 09:52 | Outpatient (AMB) | payer MEDICARE, OTHER, SELFPAY ==
--- NOTE | 2024-06-02 10:00 | MHC.OFFVIS ---
Vital Signs 06/02/24 10:02 Height 5 ft 3 in Weight 120 lb BMI 21.3 BP 121/58 L Blood Pressure Location Lt brachial Position Sitting Respiration 16 Pulse 90 Pulse Source Pulse Oximeter Pulse Oximetry (%) 99 Oxygen Delivery Method Room Air Intake Visit Reasons: s/p hip inj Chrome Plater Required: No Allergies codeine Allergy (Unknown, Verified 06/02/24 10:03) Unknown raloxifene [Evista] Allergy (Unknown, Verified 06/02/24 10:03) Unknown Hydrocodone Bitartrate Allergy (Unknown, Uncoded 06/02/24 10:03) Unknown Medication List - Last Reconciled 06/02/24 by Rocio Covarrubias LPN apixaban (Eliquis) mg PO atorvastatin mg PO calcium carbonate-vitamin D3 600 mg-12.5 mcg (500 unit) (Calcium with Vit D3) caps PO ONCE furosemide mg PO magnesium oxide 500 mg PO DAILY metoprolol succinate ER 100 mg PO BID omeprazole 20 mg PO DAILY ropinirole 0.25 mg PO BEDTIME sacubitril-valsartan 49-51 mg (Entresto) 1 tab PO BID HPI HPI s/p hip inj: Details: History of Present Illness The patient is an 88-year-old female presenting with follow-up after hip injection. She details a significant improvement in pain control and mobility following the injection performed under X-ray guidance, which starkly contrasts with a past injection that was ineffective. Prior to this intervention, the patient experienced substantial challenges with mobility and self-care due to severe hip pain, a chronic issue that disrupted her daily life, including personal and yard work activities. Since the successful injection, she reports restored function and enhanced activity levels without the debilitating pain. The patient expresses concern about the eventual return of pain upon the injection's wear-off and the schedule for future injections. Pain Description - Onset: Chronic - Quality: Severe, debilitating - Primary Location: Hip - Radiation: Not discussed - Exacerbating Factors: Improperly placed injection - Relieving Factors: Correctly placed injection under X-ray guidance - Interference: Walking, dressing, self-care, yard work, activities of daily living Physical Exam - Appears afebrile. - Alert and oriented. - Mood and affect appropriate. - Follows and participates in conversation appropriately. - Respiratory effort is unlabored. - Able to transition from sit to stand unassisted. - Ambulates with bilaterally normal heel strike and toe off. - Able to stand and walk on toes and heels. [facility] Social History Patient Tobacco Use Status: Never used Tobacco Current occupational status: retired Physical Exam Vital Signs: Last Vital Signs Pulse 90 06/02/24 10:02 Resp 16 06/02/24 10:02 BP 121/58 L 06/02/24 10:02 Pulse Ox 99 06/02/24 10:02 Oxygen Delivery Method Room Air 06/02/24 10:02 BMI result Body Mass Index 21.3 Assessment & Plan Assessment & Plan (1) Arthritis of left hip: Code(s): M16.12 - Unilateral primary osteoarthritis, left hip Category: Medical (2) Left hip pain: Code(s): M25.552 - Pain in left hip Category: Medical Plan Plan I discussed the success of the hip injection in managing the patient's pain, explaining the benefits of having the injection performed under X-ray guidance. I informed the patient that the effects typically last up to three months and that she should call us when she notices the pain returning for us to schedule the next session. We discussed that we would continue with the approach that has been working effectively and avoid office-based injections, which were not beneficial in the past. I reassured her that we would strive to schedule future injections quickly to minimize any disruption to her daily activities and quality of life. Patient Instructions - Continue with daily activities as tolerated. - Contact the office when you notice the effectiveness of the injection wearing off or if pain returns. - Prepare for upcoming injection similar to the successful one performed with X-ray guidance. - Avoid overexertion to prevent aggravation of symptoms. Coding Level of Care Code Est Pt Level 3 (93003) Diagnoses Arthritis of left hip M16.12 Left hip pain M25.552
[2024-06-02 10:02] VITALS: BP 121/58; PULSE 90; RESP 16; O2SAT 99; BMI 21.3
--- OUTSIDE RECORDS SUMMARY | 2024-06-02 11:04 | XMS_ITS | Data Portability ---
Author Organization [facility], [address] Address [address] [place] [address] Assessment No assessment recorded. Plan of Treatment Reminders Order Date Submit Date Provider Last Modified By Organization Details Last Modified Time Details Appointments None recorded. Lab rapid strep group A, throat 2022 023 [email or web address] [facility] [address] [place], [address], 3 11:04:02 streptococc us group A, culture, throat 2022 023 FARRELL [facility], [address] [place] [address], [place], [address], 3 06:08:06 Referral None recorded. Procedures None recorded. Surgeries None recorded. Imaging None recorded. Medication Orders docusate sodium 100 mg capsule 2022 023 FARRELL [facility], [address] [place], [address], 3 11:10:56 amoxicillin 875 mg tablet 2022 023 FARRELL [facility], [address] [place], [address], 3 11:04:04 benzonatate 100 mg capsule 2022 023 FARRELL [facility], [address] [place], [address], 3 11:04:04 Patient TargetsNo targets recorded. Patient Instructions Encounter Date Encounter Id Patient Instructions Last Modified By Organization Details Last Modified Time 04/26/2022 [id number] sore throat: car e instructions hany Not [...] : Negat yannick Not Available [facility] ([facility]) [address] [facility], [place], [address], 04/29/2022 06:08:06 04/26/1904/26/2022 rapid strep group A, throa t Unknown Analyte Normal = Negati ve Not Available [id number] [address] [facility] [address] [place] [address], [place], [address], 04/26/2022 10:16:20 04/26/1904/26/2022 rapid strep group A, throa t Unknown Analyte negati ve Not Available [address] [address] [place] [address], [place], [address], 04/26/2022 10:16:20 Result Notes None recorded. Problems Name Problem SNOMED Code Status Onset Date Resolution Date Notes Provider Name and Address Organization Details Recorded Time Gastroesoph ageal reflux disease 673067748 Active 2022 DARLENE ASAD null, [place] - [facility] 10:21:49 Hypertensiv e disorder 02313456 Active 2022 DARLENE ASAD null, [place] - [facility] 10:22:06 Hyperlipide angela 23218145 Active 2022 DARLENE ASAD null, [place] - [facility] 3 10:22:16 Atrial fibrillatio n 13235204 Active 2022 DARLENE ASAD null, [place] - [facility] 3 10:29:47 Cerebrovasc ular accident 358485397 Completed 202204/26/2022 DARLENE ASAD null, PA - [...] null, [place] - [facility] 3 10:19:10 [id number] codeine medicatio n Not available Not available [...] Updated DateTime 3 161.29 cm 21.4 kg/m2 40910.8 6 g 8 97 % 97 % [...] SNOMED-CT Code Diagnosis ICD10 Code Diagnosis Note [id number] [address] [address] [place] [address] 05/19/2016 17:27:49 05/19/2016 18:21:28 [id number] [address] [address] [place] [address] 12/26/2021 09:19:44 12/26/2021 12:06:56 [id number] [address] [facility] [address] [place] [address] 04/17/2020 10:57:25 04/17/2020 12:03:52 [id number] [facility] [address] [place] [address] 09/07/2019 14:00:26 09/07/2019 15:22:40 [id number] [address] [place] [address] 02/01/2019 08:34:11 02/01/2019 09:56:24 [id number] [address] [place] [address] 06/26/2015 14:06:37 06/26/2015 15:03:40 [id number] Pedro Jacobs NP [address] [address] [place] [address] 04/26/2022 08:56:33 04/26/2022 11:14:14 Cerebrovascular accident 178571960 I63.9 Acute bact erial pharyngitis 421670532 J02.9 Chronic constipation 236 173107 K59.09 Health Concerns Section Related Observation LastModified by Organization Detai ls LastModified Time None Recorded Concern Status LastModified by Organization Details LastModified Time None Recorded Advance Directives Directive None Recorded Payers Encounter Date Sequence Insurance Name Policy Number Policy Trimble Covered Member ID Trimble Member ID Guarantor Name 02/01/2019 1 MEDICARE B-[place]: [employer] Hannahmonika Damian [id number] Hannah Rickie 02/01/2019 2 [employer] - PLAN B (MEDICARE SUPPLEMENT) Hannah Ophelia Damian [id number] Hannah Rickie 09/07/2019 1 MEDICARE B-[place]: [employer] Hannah Ophelia Damian [id number] Hannah Rickie 09/07/2019 2 [employer] - PLAN B (MEDICARE SUPPLEMENT) Hannah Ophelia Damian [id number] Hannah Rickie 04/17/2020 1 MEDICARE B-[place]: [employer] Hannah Ophelia Damian [id number] Hannah Rickie 04/17/2020 2 [employer] - PLAN B (MEDICARE SUPPLEMENT) Hannah Ophelia Damian [id number] Hannah Rickie 12/26/2021 1 MEDICARE B-[place]: [employer] Hannah Ophelia Damian [id number] Hannah Rickei 12/26/2021 2 [employer] - PLAN B (MEDICARE SUPPLEMENT) Hannah Ophelia Damian [id number] Hannah Rickie 04/26/2022 1 [place]: [employer] Hannah R Rickie [id number] Hannah Damian 04/26/2022 2 [employer] - PLAN B (MEDICARE SUPPLEMENT) Hannah Damian [id number] Hannah Damian Notes Date Note Type Note [...] Jacobs NP [address] [place], [address], [place] - [facility] 04/26/2022 19:36:22 OBGyn Episode No OBEpisode recorded.
--- OUTSIDE RECORDS SUMMARY | 2024-06-02 11:04 | XMS_ITS | Clinical Summary ---
Author Organization [facility] [place] [facility] Address [address] [place] [address] Phone Care Team Providers Care Automotive Machinist Apprentice Name Role Phone Courtney Mendiola MD Primary Care Provider [phone] Allergies Active Allergy Reactions Criticality Noted Date Comments Codeine Nausea And Vomiting 03/03/2006 Hydrocodone 09/03/2016 vomiting Raloxifene Other 10/10/2013 Gastro issues. Could not eat Medications acetaminophen (TYLENOL) 500 mg tablet 2 Times Daily. Active furosemide (LASIX) 20 mg tablet TAKE 1 TABLET EVERY DAY 09/15/2023 Active metoprolol succinate (TOPROL-XL) 100 mg 24 hr tablet Take 1 Tablet by mouth 2 times daily. 06/21/2023 Active omeprazole (PriLOSEC) [address] capsule Take 1 Capsule by mouth daily. 12/09/2023 Active rOPINIRole (REQUIP) 0.25 mg tablet TAKE 1 TABLET EVERY DAY 90 tablet 1 01/18/2024 Active magnesium oxide 500 mg magnesium tabletIndicatio ns:Hypomagnesem ia Take 1 tablet by mouth 1 (one) time each day. 90 tablet 3 03/17/2024 Active atorvastatin (LIPITOR) 40 mg tablet TAKE 1 TABLET EVERY DAY 90 tablet 1 04/11/2024 Active sacubitriL-vals jodee (Entresto) 49-51 mg per tablet Take 1 tablet by mouth 2 (two) times a day. 180 tablet 3 04/11/2024 Active apixaban (ELIQUIS) 2.5 mg tablet Take 1 tablet (2.5 mg total) by mouth 2 (two) times a day. 180 each 3 04/20/2024 Active Active Problems Problem Noted Date Diagnosed Date [...] Encounters Date Type Department Care Team Description 05/31/2024 1:15 AM EDT Ancillary Procedure [facility] Card[facility] [address] [place] [address] Arrived 05/01/2024 Telephone [facility] [address] [place] [address] Janelle Zacarias [place] Results (Magnesium results) 04/26/2024 9:15 PM EST Ancillary Procedure [facility] [address] [place] [address] 04/24/2024 12:30 PM EST Ancillary Procedure [facility] [address] [place] [address] Other fatigue; Dyspnea on exertion 04/20/2024 Telephone [facility] [address] [place] [address] Chemo Hensley MD Med Refill 04/10/2024 10:30 AM EST Office Visit Adult [address] [address] Demetrius Zapata PA Bilateral impacted cerumen (Primary Dx); Paroxysmal atrial fibrillation ([facility]/HCC) 04/06/2024 Telephone [facility] [address] [place] [address] Janelle Zacarias MA Med Refill (Entresto 49-51 ) 04/06/2024 Telephone [facility] [address] [place] [address] Chemo Hensley MD medication 04/05/2024 2:30 PM EST Office Visit Adult Medicine [address], [place] [phone] Courtney Mendiola MD Essential hypertension, benign (Primary Dx); Hypercholesterolemia; Gastroesophageal reflux disease without esophagitis; Cerumen debris on tympanic membrane of both ears 04/04/2024 5:25 PM EST Ancillary Procedure [facility] [address] [facility] [address] [place] [address] 03/22/2024 Telephone [facility] [address] [facility] [address] [place] [address] Chemo Hensley MD Medication Problem 03/21/[address] [phone] Courtney Mendiola MD walkin 03/13/2024 11:10 AM EST [facility] Visit [facility] [address] [facility] [address] [place] [address] Dayanara Gates NP Dilated cardiomyopathy (CMS/HCC) (Primary Dx); Status post biventricular cardiac pacemaker insertion; NSVT (nonsustained ventricular tachycardia) (CMS/HCC); Other fatigue; Dyspnea on exertion; Hypomagnesemia; Paroxysmal atrial fibrillation (CMS/HCC); Status post atrioventricular rosa ablation; Mitral valve insufficiency, unspecified etiology; Tricuspid valve insufficiency, unspecified etiology; Essential hypertension, benign; Hypercholesterolemia 03/08/2024 1:00 PM EST Ancillary Procedure [facility] [address] [facility] [address] [place] [address] Encounter for adjustment or management of cardiac device 03/07/2024 3:20 PM EST Ancillary Procedure [facility] [address] [facility] [address] [place] [address] from Last 3 Months Surgical History Surgery Date Site/Laterality Comments APPENDECTOMY PROCEDURE: HISTORICAL APPENDECTOMY; COMMENT: as a 12-year-old HYSTERECTOMY PROCEDURE: HISTORICAL HYSTERECTOMY; COMMENT: at the age of 39 CATARACT EXTRACTION PROCEDURE: HISTORICAL CATARACT REMOVAL; COMMENT: at the age of 61 both eyes COLONOSCOPY 03/19/2011 PROCEDURE: HISTORICAL COLONOSCOPY; COMMENT: 7 mm rectal polyp: Mixed hyperplastic and adenomatous polyp. ESOPHAGOGASTRODUODENOSCOPY 03/06/2013 PROCEDURE: [place] ESOPHAGOGASTRODUODENOSCOPY TRANSORAL DIAGNOSTIC; COMMENT: normal Medical History [...] 10:30 AM EDT Office Visit [place] [facility] [address] [place] [address] Adeola Torres PA [address] [place] [address] 03/08/2025 1:00 PM EST Ancillary Procedure [facility] [address] [facility] [address] [place] [address] Health Maintenance Due Date Last Done Comments COVID-19 Vaccine (#1) 12/08/1940 Hepatitis A Vaccines (1 of 2 - Risk 2-dose series) 1954 Pneumococcal Vaccine: 50+ Years (1 of 2 - PCV) 1954 Zoster Vaccines (1 of 2) 1954 Hepatitis B Vaccines (1 of 3 - Risk 3-dose series) 1994 RSV Immunization Adult Patients (1 - 1-dose 75+ series) 2009 Falls Risk Assessment 02/07/2022 Social Influencers of Health Screening 02/07/2022 Depression Screening 03/26/2024 03/26/2023 Medicare Annual Wellness Visit 03/26/2024 03/26/2023 Influenza Vaccine (Season Ended) 2024 DTaP,Tdap,and Td Vaccines (2 - Td or [...] this topic Medical Devices Implanted Type Area Verifier Device Identifier Shelf Expiration Date Model / Serial / Lot Medt-Card Essie Quad Resident Inspector-P [id number] Implanted:08/2023 (Quantity not on file) Cardiac PLANT AND MACHINERY VALUER-P [employer] - CARDIAC RHYTH-CRDM ESSIE QUAD PLANT AND MACHINERY VALUER-P [id number] / [id number] / Procedures Procedure Name Priority Date/Time Associated Diagnosis Comments CARDIAC DEVICE CHECK- REMOTE- MURJ Routine 05/31/2024 1:10 AM EDT MAGNESIUM Routine 05/01/2024 9:29 AM EST Hypomagnesemia [...] REMOTE- MURJ Routine 03/07/2024 3:15 PM EST BASIC METABOLIC PANEL Routine 01/31/2024 [...] * Cardiac device check - Remote- MURJ (05/31/2024 1:10 AM EDT) Only the most recent of4 resultswithin the time period is included. Date Time Interrogation Session [id number] CV DEVICE CHECK Type Interrogation Session Remote CV DEVICE CHECK Implantable Pulse Generator Verifier MDT CV DEVICE CHECK Implantable Pulse Generator Type PLANT AND MACHINERY VALUER-P CV DEVICE CHECK Implantable Pulse Generator Model Essie Quad PLANT AND MACHINERY VALUER-P [id number] CV DEVICE CHECK Implantable Pulse Generator Serial Number [id number] CV DEVICE CHECK Implantable Pulse Generator Implant Date 20230506 CV DEVICE CHECK Battery Remaining Longevity 137.0 CV DEVICE CHECK Battery Voltage 3.040 CV D EVICE CHECK Battery DISTRICT HOME ECONOMICS AGENT Trigger 2.595 CV DEVICE CHECK Battery Status Middle of Service CV DEVICE CHECK Shane Statistic RA Percent Paced 0.00 CV DEVICE CHECK Shane Statistic RV Percent Paced 99.00 CV DEVICE CHECK PLANT AND MACHINERY VALUER Statistic LV Percent Paced 0.00 CV DEVICE CHECK PLANT AND MACHINERY VALUER Statistic PLANT AND MACHINERY VALUER Percent Paced 0.00 CV DEVICE CHECK Lead Channel Impedance Value 3,363 CV DEVICE CHECK Lead Channel Sensing Intrinsic Amplitude 4.125 CV DEVICE CHECK Lead Channel Setting Sensing Sensitivity 0.90 CV DEVICE CHECK Lead Channel Impedance Value 532 CV DEVICE CHECK Lead Channel Pacing Threshold Amplitude 0.500 CV DEVICE CHECK Lead Channel Pacing Threshold Pulse Width 0.4 CV DEVICE CHECK Lead Channel RV Pacing Threshold Date 2024-05-26 CV DEVICE CHECK Lead Channel Setting Pacing [...] CV DEVICE CHECK Ventricular chambers paced during PLANT AND MACHINERY VALUER pacing. RVOnly CV DEVICE CHECK Shane Setting Lower Rate Limit 70 CV DEVICE CHECK Shane Setting Maximum Sensor Rate 120 CV DEVICE CHECK Zone Setting Type Category VT CV DEVICE CHECK Rate 150 CV DEVICE CHECK Zone Setting Status ENABLED CV DEVICE CHECK Zone ID 6 CV DEVICE CHECK Date of Service 2024-06-03 CV DEVICE CHECK Anatomical Region Laterality Modality Device Interroga tion 05/26/2024 4:57 AM EDT Impressions 05/30/2024 10:52 AM EDT Heart Failure Diagnostic: Stable * Heart failure diagnostics assessed through the device * Status: Stable * No overt HF present Narrative Procedure Note Andrzej Perez MD - 05/31/2024 IMPRESSION: Heart Failure Diagnostic: Stable * Heart failure diagnostics assessed through the device * Status: Stable * No overt HF present us Andrzej Perez MD CV IMPLANTABLE CARDIAC DEV ICE PROCEDURES Final Result * Magnesium (05/01/2024 9:29 AM EST) Only the most recent of2 resultswithin the time period is included. Magnesium 2.0 1.9 - 2.6 mg/dL LAB CHEMISTRY METHOD 05/01/2024 12:49 PM EST [facility] Blood Venous blood specimen / Unknown Venipuncture / Unknown 05/01/2024 9:29 AM EST 05/01/2024 9:29 AM EST Dayanara Gates TURNSTILE COLLECTOR LAB BLOOD ORDERABLES Final Result [facility] [address] [place] [address], [place] [phone] * (ABNORMAL) TRANSTHORACIC ECHOCARDIOGRAM (TTE) COMPLETE (04/24/2024 [...] 46 mL CV PACS Left Atrium Minor Sterling 6.8 cm CV PACS Left Atrium Major Sterling 6.7 cm CV PACS LA Area Sys [...] (04/24/2024) Anatomical Region Laterality Modality Other Provider [place] On[facility] CV HISTORICAL CONV PROCE DURES Final Result * Thyroid stimulating hormone with reflex to free t4 and free t3 (03/13/2024 1:46 PM EST) TSH 1.33 0.40 - 4.00 mcIU/mL LAB CHEMISTRY METHOD 03/13/2024 6:59 PM EST [facility] Blood Venous blood specimen / Unknown Venipuncture / Unknown 03/13/2024 1:46 PM EST 03/13/2024 1:46 PM EST Dayanara Gates NP LAB BLOOD ORDERABLES Final Result [facility] [address] [place] [address], * CBC auto differential (03/13/2024 1:46 PM EST) WBC 8.7 4.8 - 10.8 K/mcL LAB HEMETOLOGY METHOD 03/13/2024 4:53 PM [facility] RBC 4.20 3.80 - 4.80 M/mcL LAB HEMETOLOGY METHOD 03/13/2024 4:53 PM [facility] Hemoglobin 11.9 11.5 - 16.0 g/dL LAB HEMETOLOGY METHOD 03/13/2024 4:53 PM [facility] Hematocrit 37.0 35.0 - 47.0 % LAB HEMETOLOGY METHOD 03/13/2024 4:53 PM [facility] MCV 88.7 79.0 - 98.0 FL LAB HEMETOLOGY METHOD 03/13/2024 4:53 PM [facility] MCH 28.5 27.0 - 32.0 pcg LAB HEMETOLOGY METHOD 03/13/2024 4:53 PM [facility] MCHC 32.2 32.0 - 37.0 g/dL LAB HEMETOLOGY METHOD 03/13/2024 4:53 PM [facility] RDW 13.8 11.0 - 15.0 % LAB HEMETOLOGY METHOD 03/13/2024 4:53 PM [facility] Platelets 202 130 - 400 K/mcL LAB HEMETOLOGY METHOD 03/13/2024 4:53 PM [facility] MPV 10.6 7.0 - 11.0 FL LAB HEMETOLOGY METHOD 03/13/2024 4:53 PM [facility] NRBC 0.0 <1.0 % LAB HEMETOLOGY METHOD 03/13/2024 4:53 PM [facility] NRBC Absolute 0.00 <0.10 K/mcL LAB HEMETOLOGY METHOD 03/13/2024 4:53 PM [facility] Neutrophils Relative 52.8 % LAB HEMETOLOGY METHOD 03/13/2024 4:53 PM [facility] Lymphocytes Relative 36.5 % LAB HEMETOLOGY METHOD 03/13/2024 4:53 PM [facility] Monocytes Relative 9.2 % LAB HEMETOLOGY METHOD 03/13/2024 4:53 PM [facility] Eosinophils Relative 0.9 % LAB HEMETOLOGY METHOD 03/13/2024 4:53 PM [facility] Basophils Relative 0.3 % LAB HEMETOLOGY METHOD 03/13/2024 4:53 PM [facility] Immature Granulocytes Relative 0.3 % LAB HEMETOLOGY METHOD 03/13/2024 4:53 PM [facility] Neutrophils Absolute 4.61 1.50 - 7.00 K/mcL LAB HEMETOLOGY METHOD 03/13/2024 4:53 PM [facility] Lymphocytes Absolute 3.19 1.00 - 5.00 K/mcL LAB HEMETOLOGY METHOD 03/13/2024 4:53 PM [facility] Monocytes Absolute 0.80 0.20 - 1.00 K/mcL LAB HEMETOLOGY METHOD 03/13/2024 4:53 PM [facility] Eosinophils Absolute 0.08 0.00 - 0.50 K/[facility] LAB HEMETOLOGY METHOD 03/13/2024 4:53 PM EST [facility] Basophils Absolute 0.03 0.00 - 0.20 K/[facility] LAB HEMETOLOGY METHOD 03/13/2024 4:53 PM EST [facility] Immature Granulocytes Absolute 0.03 0.00 - 0.03 K/[facility] LAB HEMETOLOGY METHOD 03/13/2024 4:53 PM EST [facility] Blood Venous blood specimen / Unknown Venipuncture / Unknown 03/13/2024 1:46 PM EST 03/13/2024 1:46 PM EST Dayanara Gates TURNSTILE COLLECTOR LAB BLOOD ORDERABLES Final Result Performing Organization Address City/[facility]/ZIP Co de Phone Number [facility] [address] [place] [address], [place] [phone] * (ABNORMAL) B-type natriuretic peptide (03/13/2024 1:46 PM EST) BNP 313(H) <=100 pcg/mL LAB CHEMISTRY METHOD 03/13/2024 5:45 PM EST [facility] Blood Venous blood specimen / Unknown Venipuncture / Unknown 03/13/2024 1:46 PM EST 03/13/2024 1:46 PM EST Dayanara Gates TURNSTILE COLLECTOR LAB BLOOD ORDERABLES Final Result [facility] [address] [place] [address], [place] [phone] * CARDIAC DEVICE CHECK- IN CLINIC- MURJ (03/08/2024 1:35 PM EST) Date Time Interrogation Session [id number] CV DEVICE CHECK Implantable Pulse Generator Verifier MDT CV DEVICE CHECK Implantable Pulse Generator Type PLANT AND MACHINERY VALUER-P CV DEVICE CHECK Implantable Pulse Generator Model Essie Quad PLANT AND MACHINERY VALUER-P [id number] CV DEVICE CHECK Implantable Pulse Generator Serial Number [id number] CV DEVICE CHECK Implantable Pulse Generator Implant [...] Channel Impedance Value 589 CV DEVICE CHECK Hsane Setting Mode (NBG Code) VVIR CV DEVICE CHECK Ventricular chambers paced during PLANT AND MACHINERY VALUER pacing. RV CV DEVICE CHECK Shane Setting [...] thresholds reviewed and tested * Presenting Rhythm: MEDICAL PROFESSIONALS 70s * No R waves @ VVI [...] thresholds reviewed and tested * Presenting Rhythm: [employer]ESSION[employer] 70s * No R waves @ VVI [...] mmol/L LAB CHEMISTRY METHOD 01/31/2024 1:41 PM [facility] Potassium 4.0 3.5 - 5.5 mmol/L LAB CHEMISTRY METHOD 01/31/2024 1:41 PM [facility] Chloride 109 96 - 110 mmol/L LAB CHEMISTRY METHOD 01/31/2024 1:41 PM [facility] CO2 23 21 - 32 mmol/L LAB CHEMISTRY METHOD 01/31/2024 1:41 PM [facility] Anion Gap 9 3 - 11 LAB CHEMISTRY METHOD 01/31/2024 1:41 PM [facility] Glucose 93 70 - 100 mg/dL LAB CHEMISTRY METHOD 01/31/2024 1:41 PM [facility] BUN 17 5 - 25 mg/dL LAB CHEMISTRY METHOD 01/31/2024 1:41 PM [facility] Creatinine 0.96 0.50 - 1.10 mg/dL LAB CHEMISTRY METHOD 01/31/2024 1:41 PM [facility] eGFR 57(L) >=60 mL/min/1. 73m2 LAB CHEMISTRY METHOD 01/31/2024 1:41 PM [facility] Comment:Calculation based on the??Chronic Kidney Disease Epidemiology Collaboration (CKD-EPI) equation refit??without adjustment for race. BUN/Creatinine Ratio 17.7 LAB CHEMISTRY METHOD 01/31/2024 1:41 PM [facility] Calcium 8.9 8.5 - 10.5 mg/dL LAB CHEMISTRY METHOD 01/31/2024 1:41 PM [facility] Blood Venous blood specimen / Unknown Venipuncture / Unknown 01/31/2024 10:16 AM EST 01/31/2024 10:16 AM EST Dayanara Gates NP LAB BLOOD ORDERABLES Final Result [facility] [address] [place] [address], [place] [phone] * Lipid panel (12/10/2023) LDL/HDL Ratio 3 [...] (World Health Organization Fracture Risk Assessment) [facility] Department of Internal Medicine recommends using [...] alternative screening schedule based on aaron Varghese., [facility] March 19, 2011 for patients [...] (World Health Organization Fracture Risk Assessment) [facility] Department of Internal Medicine recommendsusing National [...] higher), BMD testingevery 15 years Katharine [facility] DXA PROCEDURES Final Result from Last 3 Months or Most Recently Relevant to Health Maintenance Insurance MEDICARE HU[employer] Advance Directives Documents on File Type Date Recorded Patient Juvenile Correctional Officer Expl anation Health Care Decision (hx) 08/07/2015 AD AMTHIS DIRECTIVE Health Care Decision (hx) 08/07/2015 AD [...] (hx) 08/07/2015 AD MATHIS DIRECTIVE Care Teams Automotive Machinist Apprentice Relationship Specialty Start Date End Date Courtney Mendiola MD [address] [place] [id number] PCP - General Internal Medicine 01/10/24
--- OUTSIDE RECORDS SUMMARY | 2024-06-02 11:04 | XMS_ITS | Patient Health Record ---
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
--- OUTSIDE RECORDS SUMMARY | 2024-06-02 11:04 | XMS_ITS | Encounter Summary ---
Author Organization [facility] Address [address] [place] [address] Care Team Providers Care Exhaust Emissions Automotive Technician Name Role Phone Courtney Mendiola MD Primary Care Provider [phone] Encounter Details Date Type Department Care Team (Late Contact Info) Description 05/31/2024 1:15 AM EDT Ancillary Procedure [facility] [address] [facility] [address] [place] [phone] Arrived Social History Tobacco Use Types Packs/Day [...] AM EDT Office Visit Adult Medicine [address] [address] Adeola Torres PA [address] [place] [address] 03/08/2025 1:00 PM EST Ancillary Procedure [facility] [address] [facility] [address] [place] [phone] documented as of this encounter Procedures Procedure Name Priority Date/Time Associated Diagnosis Comments CARDIAC DEVICE CHECK- REMOTE- MURJ Routine 05/31/2024 1:10 AM EDT documented in this encounter Results * Cardiac device check - Remote- MURJ (05/31/2024 1:10 AM EDT) Date Time Interrogation Session [id number] CV DEVICE CHECK Type Interrogation Session Remote CV DEVICE CHECK Implantable Pulse Generator Rand Tacker MDT CV DEVICE CHECK Implantable Pulse Generator Type FLAME PLANER-P CV DEVICE CHECK Implantable Pulse Generator Model Essie Quad FLAME PLANER-P [id number] CV DEVICE CHECK Implantable Pulse Generator Serial Number [id number] CV DEVICE CHECK Implantable Pulse Generator Implant Date 20230506 CV DEVICE CHECK Battery Remaining Longevity 137.0 CV DEVICE CHECK Battery Voltage 3.040 CV D EVICE CHECK Battery VIDEO RENTAL CLERK Trigger 2.595 CV DEVICE CHECK Battery Status Middle of Service CV DEVICE CHECK Shane Statistic RA Percent Paced 0.00 CV DEVICE CHECK Shane Statistic RV Percent Paced 99.00 CV DEVICE CHECK FLAME PLANER Statistic LV Percent Paced 0.00 CV DEVICE CHECK FLAME PLANER Statistic FLAME PLANER Percent Paced 0.00 CV DEVICE CHECK Lead [...] CV DEVICE CHECK Ventricular chambers paced during FLAME PLANER pacing. RVOnly CV DEVICE CHECK Shane Setting [...] on filedocumented in this encounter Care Teams Exhaust Emissions Automotive Technician Relationship Specialty Start Date End Date Courtney Mendiola MD [address] [place] [address] PCP - General Internal Medicine 01/10/24 documented as of this encounter
--- OUTSIDE RECORDS SUMMARY | 2024-06-02 11:04 | XMS_ITS ---
Author Organization [address] Address [address] [place] [address] Phone Care Team Providers Care Net Coordinator Name Role Phone Courtney Mendiola MD Primary Care Provider [phone] High Risk Care Management Status:Identified (Enrolling) Start date:05/30/2024 Enrollment reason:Identified as high-risk Case Team Name Relationship Phone Tete Pacheco RN Care Manager(Responsible Staff) Continued Care and Services Coordination
== END 2024-06-02 10:22 | disposition home or self-care (01) ==
LOC: HO.PMC 09:52
PROVIDERS: PCP Internal Medicine; Visit Provider Internal Medicine
DX: M16.12 Unilateral primary osteoarthritis, left hip (principal); M25.552 Pain in left hip
CPT/HCPCS: 99213

== ENCOUNTER → 2024-06-02 09:52 | Outpatient (BNVA) | payer MEDICARE, OTHER, SELFPAY | PROVIDERS: PCP Internal Medicine; Visit Provider Internal Medicine | DX: M16.12 Unilateral primary osteoarthritis, left hip (principal); M25.552 Pain in left hip | CPT/HCPCS: 99212 ==

== ENCOUNTER 2024-09-21 11:20 | Outpatient (AMB) | payer MEDICARE, OTHER, SELFPAY ==
[2024-09-21 12:15] VITALS: BP 93/56; PULSE 75; RESP 16; O2SAT 98; BMI 21.3
--- NOTE | 2024-09-21 12:15 | MHC.OFFVIS ---
Vital Signs 09/21/24 12:15 09/21/24 12:51 Height 5 ft 3 in 5 ft 3 in Weight 120 lb 120 lb BMI 21.3 21.3 BP 93/56 L 107/69 Blood Pressure Location Lt brachial Lt brachial Position Sitting Sitting Respiration 16 12 Pulse 75 80 Pulse Source Pulse Oximeter Pulse Oximeter Pulse Oximetry (%) 98 96 Oxygen Delivery Method Room Air Room Air Intake Visit Reasons: Left hip injection w/ fluoro Allergies codeine Allergy (Unknown, Verified 06/02/24 10:03) Unknown raloxifene (Evista) Allergy (Unknown, Verified 06/02/24 10:03) Unknown Hydrocodone Bitartrate Allergy (Unknown, Uncoded 06/02/24 10:03) Unknown HPI HPI Left hip injection w/ fluoro: Details: Patient presents for scheduled procedure. Denies any recent cough, cold, infection, fever or other significant changes in medical history since last office visit. [facility] Social History Patient Tobacco Use Status: Never used Tobacco Current occupational status: retired Physical Exam Vital Signs: Last Vital Signs Pulse 80 09/21/24 12:51 Resp 12 09/21/24 12:51 BP 107/69 09/21/24 12:51 Pulse Ox 96 09/21/24 12:51 Oxygen Delivery Method Room Air 09/21/24 12:51 BMI result Body Mass Index 21.3 Office Procedures AMB Joint Injection/Aspiration Joint Injection/Aspiration Primary Site: other (left hip) Prep: site was prepped using sterile technique Injected: 40 mg of, Kenalog and in the joint Approach Used: other (lateral with arthrogram) Procedure: The patient tolerated the procedure well Coding 54871 - Large joint Procedure code (CPT) selection complete Assessment & Plan Assessment & Plan (1) Arthritis of left hip: Code(s): M16.12 - Unilateral primary osteoarthritis, left hip Category: Medical Plan Patient is status post left hip intra-articular injection. Patient tolerated procedure well and was discharged home in stable condition with discharge instructions. All questions were answered. We will follow-up via telephone or in clinic to assess response to therapy. A follow-up appointment was made during today's visit. Orders: Orders FL guidance in treatment room 09/21/24 M25.552 - Pain in left hip Coding Level of Care Code Procedure Only Diagnoses Arthritis of left hip M16.12 CPT Codes Coding - 09048 Large joint: 89852 - Large joint ([id number])
--- OUTSIDE RECORDS SUMMARY | 2024-09-21 12:17 | XMS_ITS | Patient Health Record ---
Author Organization [facility] Address [address] [facility] [place] [address] Care Team Providers Care Art Coordinator Name Role Phone Gaurav Nixon MD Primary Care Provider Unavail able Ozzie Decker Unavailable [phone] Allergies Allergen (clinical drug ingredient) Drug/Non Drug Allergy documented on EMR Reaction Allergy Type Onset Date Status avista (uncoded) Unknown Allergy Act yannick codeine Codeine Sulfate stomach upset Drug Allergy Active hydrocodone / ibuprofen Hydrocodone-Ibuprof en Unknown Drug Allergy Active Reason For Referral No Information Medications Medication SIG (Take, Route, Frequency, Duration) Notes Start Date End Date Status Vitamin D-3 Active hydroCHLOROthiazide 12.5 MG Oral; Duration: 90 Not-Taking Magnesium 400 MG as directed Orally 03/28/2019 Active Calcium 600-200 MG-UNIT 1 tablet with fo od Orally Twice a day; Duration: 30 day(s) 03/28/2019 Active Eliquis 5 MG Oral; Duration: 90 Active Cartia XT 180 MG Oral; Duration: 90 Active Omeprazole 20 MG Oral; Duration: 90 Active Atorvastatin Calcium 40 MG Oral; Duration: 90 Active Amiodarone HCl 200 MG Oral; Duration: 90 Active Social History Tobacco Use: Social History Observation Description Date Details (start date - stop date) Never Smoker NA - NA Tobacco Use/Smoking Question Answer Notes Are you a: nonsmoker Alcohol Screen Question Answer Notes Did you have a drink containing alcohol in the p ast year? No Points 0 Interpretation Negative Problems Problem Type SNOMED Code ICD Code Onset Dates Problem Status W/U Status Risk Notes Problem Bilateral atherosclerosis of arteries of lower limbs (disorder) (88986330657104423 ) Atherosclerosis of [place] artery of both lower extremities, with unspecified presence of clinical manifestation (I70.203) Active confirmed Plan Of Treatment No Information Insurance Providers Payer Name Payer Address Payer Phone Subscriber Number Group Number Insured Name Patient Relationship to Insured Coverage Start Date Coverage End Date Medicare National Govt Svcs Inc [address] [place] [address] [id number] Hannah Damian Self - patient is the insured [employer] Claims [address] [address] [place] [address] [id number] Hannah Damian Self - patient is the insured Medical (General) History Medical History History ICD Code Arthritis Back,Hip,and Knee pain Broken bones Heart disease High blood pressure Stomach ulcer Stroke CAD Surgical History Surgery Date(Month/Year) appendectomy eye surgery hysterectomy cardioversion 2018
--- OUTSIDE RECORDS SUMMARY | 2024-09-21 12:17 | XMS_ITS | Patient Health Record ---
Author Organization [facility] [employer] [facility] Address [address] [address] Care Team Providers Care Organizational Development Consultant Name Role Phone TONJA SEXTON Unavailable [phone] Allergies Allergen (clinical drug ingredient) Drug/Non Drug [...] 50 MG 1 tablet Orally Once a day; Duration: 30 day(s) Active Tylenol 1 tab Oral; Duration: 14 days Active Lidocaine 5 % 1 application as needed Externally Three times a day prn 07/17/2019 Not-Taking Verapamil HCl ER 180 MG 1 tablet Orally Once a day; Duration: 30 day(s) Active Omeprazole 20 MG as [...] Problem Status W/U Status Risk Notes Problem Vulvodynia, 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
--- OUTSIDE RECORDS SUMMARY | 2024-09-21 12:17 | XMS_ITS | Encounter Summary ---
Author Organization [facility] [address] Care Team Providers Care Colliery Clerk Name Role Phone Courtney Mendiola MD Primary Care Provider [phone] Encounter Details Date Type Department Care Team (Late st Contact Info) Description 09/06/2024 Referral Triage [facility] Worker [address] [address] Gary Corrigan Social History Tobacco Use Types Packs/Day Years Used Date Smoking Tobacco: Never Smokeless Tobacco: Never Alcohol Use Standard Drinks/Week Comments Never 0 (1 standard drink = 0.6 oz pur e alcohol) Housing Instability Answer Date Recorde d Are you worried that in the next 2 months you may not have stable housing? No 06/05/2024 Food Access & Nutrition Answer Date Rec orded Do you have access to a vari ety of food including fruits and vegetables? Yes 06/05/2024 Access to Healthcare Answer Date Record ed Within the last 3 months, ho alec many times did you visit the emergency department for your medical care? 1 06/05/2024 Health Literacy Answer Date Recorded How often do you need to hav e someone help you when you read instructions, pamphlets, or other written material from your doctor or pharmacy? Rarely 06/05/2024 Caregiver: How often do you need to have someone help you when you read instructions, pamphlets, or other written material from your doctor or pharmacy? Not on file 06/05/2024 Financial Risk Answer Date Recorded How hard is it for you to pa y for the very basics like food, housing, medical care, and air conditioning / heating? Not very hard 06/05/2024 Transportation Answer Date Recorded Has the lack of transportati on kept you from meetings, work, or from getting things needed for daily living? No Has the lack of transportati on kept you from medical appointments or from getting medications? No 06/05/2024 Social Isolation Answer Date Recorded How often do you feel lonely or isolated from th ose around you? Never 06/05/2024 Food Risk Answer Date Recorded Within the past 12 months we worried whether our food would run out before we got money to buy more. Never true 06/05/2024 Within the past 12 months th e food we bought just didn't last and we didn't have money to get more. Never true 06/05/2024 Dependent Care Answer Date Recorded Do you need help finding or paying for care for your loved ones. For example, child care provider or elderly care for an older adult? No 06/05/2024 Education Answer Date Recorded Do you think completing more education or training, like finishing a GED, going to college, or learning a trade, would be helpful for you? N/A 06/05/2024 Employment and Income Answer Date Recor ded During the last four weeks, have you been actively looking for work? No 06/05/2024 Living Situation Answer Date Recorded What is your living situation? 0 06/05/2024 Interpersonal Safety Answer Date Record ed Physical Abuse 09/04/2024 Verbal Abuse 09/04/2024 Comments No Sex and Gender Information Value Date Recorded Sex Assigned at Not on file Legal Sex Female 9:58 AM EST Gender Identity Not on file Sexual Orientation Not on file documented as of this encounter Functional Status * Are you deaf or do you have serious difficulty hearing? Answer Date of Assessment Author Yes 08/30/2024 9:03 AM Nay Mancilla RN * Are you blind or do you have serious difficulty seeing, even when wearing glasses? Answer Date of Assessment Author No 08/30/2024 9:03 AM Nay Mancilla RN * Do you have serious difficulty walking or climbing stairs? Answer Date of Assessment Author Yes 08/30/2024 9:03 AM Nay Mancilla RN * Do you have serious difficulty dressing or bathing? Answer Date of Assessment Author No 08/30/2024 9:03 AM EDT Nay Ashby RN * Because of a physical, mental, or emotional condition, do you have serious difficulty doing errandsalone such as visiting the doctor? Answer Date of Assessment Author No 08/30/2024 9:03 AM EDT Nay Ashby RN documented as of this encounter Mental Status * Because of a physical, mental, or emotional condition, do you have serious difficulty concentrating, remembering, or making decisions? (5 years old or older) Answer Entry Date Author No 08/30/2024 9:03 AM EDT Nay Ashby RN documented in this encounter Progress Notes * Gary Corrigan - 09/06/2024 10:00 AM EDT Priority: Routine Referral triage: Assigned to Smita (CHW) Reason for referral: Pt in need of assistance with transportation Smita: SIOH was completed on 06/05/24 with no insecurities. Pt may need an updated screening. Gary Corrigan Community Health Worker (CHW) Iuss Analyst/Regional documented in this encounter Plan of Treatment Upcoming Encounters Date Type Department Care Team (Late st Contact Info) Description 09/22/2024 1:30 PM EDT Office Visit Adult Medicine [address] [phone] Courtney Mendiola MD [address] [place] [address] 11/29/2024 1:00 PM EDT Office Visit Adult Medicine [address] [phone] Courtney Mendiola MD [address] [place] [address] 03/08/2025 1:00 PM EST Ancillary Procedure [facility] [address] [facility] [address] [place] [address] documented as of this encounter Visit Diagnoses Not on filedocumented in this encounter Care Teams Colliery Clerk Relationship Specialty Start Date End Date Courtney Mendiola MD [address] [place] [address] PCP - General Internal Medicine 01/10/24 documented as of this encounter
--- OUTSIDE RECORDS SUMMARY | 2024-09-21 12:17 | XMS_ITS ---
Author Name [facility] Organization Unknown Care Team Organization Name Specialty Phone Email Start Date End Da te [facility] Courtney Mendiola Primary Care 08/07/[address] [facility] Ailyn Ruiz Primary Care 05/06/20222023 [facility] Ananth, PROVIDER Primary Care 01/06/202209/29
--- OUTSIDE RECORDS SUMMARY | 2024-09-21 12:17 | XMS_ITS | Data Portability ---
Author Organization [facility] Address [address] [place] [address] Assessment No assessment recorded. Plan of Treatment Reminders Order Date Submit Date Provider Last Modified By Organization Details Last Modified Time Details Appointments None recorded. Lab rapid strep group A, throat 2022 023 [facility] [address] [place], [address], 3 11:04:02 streptococc us group A, culture, throat 2022 023 [place] [facility], [address] [place] [address], [place], [address], 3 06:08:06 Referral None recorded. Procedures None recorded. Surgeries None recorded. Imaging None recorded. Medication Orders docusate sodium 100 mg capsule 2022 023 [place] [facility], [address] [place], [address], 3 11:10:56 amoxicillin 875 mg tablet 2022 023 [place] [facility], [address] [place], [address], 3 11:04:04 benzonatate 100 mg capsule 2022 023 [place] [facility], [address] [place], [address], 3 11:04:04 Patient TargetsNo targets recorded. Patient Instructions Encounter Date Encounter Id Patient Instructions Last Modified By Organization Details Last Modified Time 04/26/2022 [id number] sore throat: car daniel instructions hany Not available 04/26/2022 11:04:02 Use [...] Negat yannick Not Available [facility] ([facility]) [address] [facility], [place], [address], 04/29/2022 06:08:06 04/26/1904/26/2022 rapid strep group A, throa t Unknown Analyte Normal = Negati ve Not Available [facility] [address] [place] [address], [place], [address], 04/26/2022 10:16:20 04/26/1904/26/2022 rapid strep group A, throa t Unknown Analyte negati ve Not Available [facility] [address] [place] [address], [place], [address], 04/26/2022 10:16:20 Result Notes None recorded. Problems Name Problem SNOMED Code Status Onset Date Resolution Date Notes Provider Name and Address Organization Details Recorded Time Gastroesoph ageal reflux disease 971001553 Active 2022 DARLENE ASAD null, [place] - [facility] 10:21:49 Hypertensiv e disorder 48448397 Active 2022 DARLENE ASAD null, [place] - [facility] 3 10:22:06 Hyperlipide angela 10494558 Active 2022 DARLENE ASAD null, [place] - [facility] 3 10:22:16 Atrial fibrillatio n 43522959 Active 2022 DARLENE ASAD null, [place] - [facility] 3 10:29:47 Cerebrovasc ular accident 681466946 Completed 202204/26/2022 DARLENE ASAD null, PA - [...] null, PA - [facility] 3 10:19:10 [id number] codeine medicatio n Not available Not available [...] Heart rate Respiratory rate Body temperature Systolic And Diastolic Provider Name and Address Organization Details Last Updated DateTime 3 161.29 cm 21.4 kg/m2 82429.8 6 g 8 97 % 97 % 113 /min 18 /min 99.7 [degF] 149/105 mm[Hg] DARLENE ASAD FELIX - [facility] 3 10:29:19 Social History Question Answer Notes LastModified by Organizat ion Details LastModified Time Tobacco Smoking Status Never Smoker DARLENE HERNADEZTEISIDRO De La Torre - [facility] 04/26/2022 10:22:36 Have You Recently Traveled Abroad? No Information not available 04/26/2022 Sex: Unknown Functional Status Question Answer Note LastModified by Organizat ion Details LastModified Time Do you use any illicit or recreational drugs? No Information not available 04/26/2022 Do you or have you ever used any other forms of tobacco or nicotine? No Information not available 04/26/2022 What is your level of alcohol consumption? None Information not available 04/26/2022 Are you currently employed? No Information not available 04/26/2022 Mental Status None recorded. Family History Relationship [...] SNOMED-CT Code Diagnosis ICD10 Code Diagnosis Note [id number] [facility] [address] [place] [address] 05/19/2016 17:27:49 05/19/2016 18:21:28 [id number] [facility] [address] [place] [address] 12/26/2021 09:19:44 12/26/2021 12:06:56 [id number] [facility] [address] [place] [address] 04/17/2020 10:57:25 04/17/2020 12:03:52 [id number] [facility] [address] [place] [address] 09/07/2019 14:00:26 09/07/2019 15:22:40 [id number] [facility] [address] [place] [address] 02/01/2019 08:34:11 02/01/2019 09:56:24 [id number] [facility] [address] [place] [address] 06/26/2015 14:06:37 06/26/2015 15:03:40 [id number] Pedro Jacobs, MECHANICAL SYSTEMS DESIGNER [facility] [address] [place] [address] 04/26/2022 08:56:33 04/26/2022 11:14:14 Cerebrovascular accident 185671294 I63.9 Acute bact erial pharyngitis 607806255 J02.9 Chronic constipation 236 188671 K59.09 Health Concerns Section Related Observation LastModified by Organization Detai ls LastModified Time None Recorded Concern Status LastModified by Organization Details LastModified Time None Recorded Advance Directives Directive None Recorded Payers Insurance Date Sequence Insurance Name Policy Number Policy Trimble Covered Member ID Trimble Member ID Guarantor Name 04/26/2022 1 [place]: [employer] Hannah Damian [id number] Hannah Damian 04/26/2022 2 [employer] - PLAN B (MEDICARE SUPPLEMENT) Hannah Damain [id number] Hannah Damian Notes Date Note Type Note Provider Name and Address Organization Details Recorded Time 04/26/2022 text/html Sore throatRepor heide by PatientSore ThroatFor associated symptoms, patient reportssore throat,weakness,hoarsen ess,coughing, andsinus pain/ congestionbut reportsno sputum production,no shortness of breath,no wheezing,no vomiting, andno nausea. For context, patient reportssick contactbut reportsno foreign travelandnon-smoker. For source of patient information, patient reportsinformation obtained from patient,patient arrived at urgent care ambulatory, andlearning styles: auditory. For location, patient reportsthroat. For severity, patient reportsmild. For quality, patient reportssharpandburning. For onset/timing, patient reports3 days. Pedro Jacobs NP [address] [place], [address], [place] - [facility] 04/26/2022 19:36:22 OBGyn Episode No OBEpisode recorded.
[2024-09-21 12:51] VITALS: BP 107/69; PULSE 80; RESP 12; O2SAT 96; BMI 21.3
== END 2024-09-21 12:51 | disposition home or self-care (01) ==
LOC: HO.PMCPRC 11:20
PROVIDERS: PCP Internal Medicine; Visit Provider Internal Medicine
DX: M16.12 Unilateral primary osteoarthritis, left hip (principal)
CPT/HCPCS: 20610; 77002

== ENCOUNTER 2024-10-06 09:38 | Outpatient (AMB) | payer MEDICARE, OTHER, SELFPAY ==
--- OUTSIDE RECORDS SUMMARY | 2024-10-06 09:41 | XMS_ITS | Patient Health Record ---
Author [facility] Address [address] [place] [address] Care Team Providers Care Edge Sander Name Role Phone Gaurav Nixon MD Primary Care Provider Unavail able Ozzie Decker Unavailable [phone] Allergies Allergen (clinical drug ingredient) Drug/Non Drug [...] atherosclerosis of arteries of lower limbs (disorder) (07710967227121210 ) Atherosclerosis of [place] artery of both lower extremities, with unspecified presence of clinical manifestation (I70.203) Active confirmed Plan Of Treatment No Information Insurance Providers Payer Name Payer Address Payer Phone Subscriber Number Group Number Insured Name Patient Relationship to Insured Coverage Start Date Coverage End Date Medicare National Govt Svcs Inc [address] [place] [address] [id number] Hannah Damian Self - patient is the insured [employer] Claims [address] [address] [place] [address] [id number] Hannah Damian Self - patient is the insured Medical (General) History Medical History History ICD Code Arthritis Back,Hip,and Knee pain Broken bones Heart disease High blood pressure Stomach ulcer Stroke CAD Surgical History Surgery Date(Month/Year) appendectomy eye surgery hysterectomy cardioversion 2018
--- OUTSIDE RECORDS SUMMARY | 2024-10-06 09:41 | XMS_ITS | Patient Health Record ---
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
--- OUTSIDE RECORDS SUMMARY | 2024-10-06 09:41 | XMS_ITS | Encounter Summary ---
Author Organization [facility] [place] [address] Care Team Providers Care Director Of Customer Service Name Role Phone Courtney Mendiola MD Primary Care Provider [phone] Encounter Details Date Type Department Care Team (Late st Contact Info) Description 09/06/2024 Referral Triage [facility] Worker [address] [address] Gary oCrrigan Social History Tobacco Use Types Packs/Day Years [...] care for your loved ones. For example, early childhood worker or elderly care for an older adult? [...] Pt may need an updated screening. Gary Corirgan Community Health Worker (CHW) [employer] Operations/Regional documented in this encounter Plan of Treatment Upcoming Encounters Date Type Department Care Team (Late st Contact Info) Description 11/22/2024 11:20 AM EDT Office Visit [facility] Cardiology [facility] [address] [address] Chemo Hensley MD [address] [address] 11/29/2024 1:00 PM EDT Office Visit Adult Medicine [address] [address] Courtney Mendiola MD [address] [place] [address] 03/08/2025 1:00 PM EST Ancillary Procedure [facility] [address] [facility] [address] [place] [address] documented as of this encounter Visit Diagnoses Not on filedocumented in this encounter Care Teams Director Of Customer Service Relationship Specialty Start Date End Date Courtney Mendiola MD [address] [place] [address] PCP - General Internal Medicine 01/10/24 documented as of this encounter
[2024-10-06 09:42] VITALS: BP 130/63; PULSE 81; RESP 16; O2SAT 98; BMI 22.3
--- NOTE | 2024-10-06 09:42 | MHC.OFFVIS ---
Vital Signs 10/06/24 09:42 Height 5 ft 3 in Weight 126 lb BMI 22.3 BP 130/63 Blood Pressure Location Lt brachial Position Sitting Respiration 16 Pulse 81 Pulse Source Pulse Oximeter Pulse Oximetry (%) 98 Oxygen Delivery Method Room Air Intake Visit Reasons: s/p left hip injection [employer] Required: No Allergies codeine Allergy (Unknown, Verified 10/06/24 09:48) Unknown raloxifene ([place]) Allergy (Unknown, Verified 10/06/24 09:48) Unknown Hydrocodone Bitartrate Allergy (Unknown, Uncoded 10/06/24 09:48) Unknown Medication List - Last Reconciled 10/06/24 by Roico Covarrubias LPN apixaban (Eliquis) mg PO atorvastatin mg PO calcium carbonate-vitamin D3 600 mg-12.5 mcg (500 unit) (Calcium with Vit D3) caps PO ONCE furosemide mg PO magnesium oxide 500 mg PO DAILY metoprolol succinate ER 100 mg PO BID omeprazole 20 mg PO DAILY ropinirole 0.25 mg PO BEDTIME sacubitril-valsartan 49-51 mg (Entresto) 1 tab PO BID HPI HPI s/p left hip injection: Details: History of Present Illness The patient is an 88-year-old female presenting with lower back pain and mobility issues. The lower back pain has been progressively worsening, rendering her incapacitated and unable to perform daily activities such as getting out of bed or dressing herself. She reports that the pain is primarily located in the lower back and is exacerbated by movement, requiring the use of a walker for mobility. The patient also experiences hip pain, which initially responded well to injections but took two days to improve after the most recent injection. Despite the delayed response, the hip pain is currently well-managed. Additionally, she reports weakness in her quadriceps and instability in her knees, which have led to falls and difficulty standing without assistance. She recently fell in her living room and required emergency assistance to get up, although she was not injured. 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 She reports taking nine Tylenol tablets daily to manage her pain. Pain Description - Onset: Progressive worsening over time - Quality: Sore, incapacitating - Location: Lower back - Exacerbating factors: Movement, standing, walking - Relieving factors: Use of walker, heating pad - Interference: Unable to perform daily activities, requires assistance to stand Physical Exam - Musculoskeletal: Patient unable to rise from sitting position due to quadriceps weakness, required assistance to stand Pain Management - Affect: Pain impacts daily activities and mobility - Analgesia: Currently taking nine Tylenol tablets daily - Adverse Effects: Skin irritation from heating pad use - Activities of Daily Living: Incapacitated, unable to perform daily tasks without assistance - Aberrant Drug Related Behaviors: None reported Procedure - Trigger point injections: After informed consent, conducted into lumbar paraspinal (multifidi, lat dorsi bilaterally) muscles with 25-gauge needle, 0.5 mL to 1 mL of bupivacaine 0.5% injected at each point, 10 mL total, patient tolerated well [facility] Social History Patient Tobacco Use Status: Never used Tobacco Current occupational status: retired Physical Exam Vital Signs: Last Vital Signs Pulse 81 10/06/24 09:42 Resp 16 10/06/24 09:42 BP 130/63 10/06/24 09:42 Pulse Ox 98 10/06/24 09:42 Oxygen Delivery Method Room Air 10/06/24 09:42 BMI result Body Mass Index 22.3 Assessment & Plan Assessment & Plan (1) Lumbar spinal stenosis: Code(s): M48.061 - Spinal stenosis, lumbar region without neurogenic claudication Category: Medical Plan Plan - Order an urgent MRI to assess lumbar spine for potentially worsening stenosis, considering pacemaker presence - Conduct trigger point injections to relieve lumbar muscle spasms - Schedule follow-up visit to assess response to injections and discuss MRI results Patient was informed and verbally consented to the use of an ambient scribe for clinic note documentation during this visit. Discussion Notes I discussed with the patient the need for an urgent MRI to evaluate her lumbar spine due to concerns of potential stenosis contributing LE weakness and falls, taking into account her pacemaker. We also talked about performing trigger point injections today to alleviate her back spasms. I explained the procedure, and she consented to proceed. We agreed on scheduling a follow-up visit to review the MRI results and assess her response to the injections. Patient Instructions - Schedule and attend MRI appointment as soon as possible - Use walker for mobility to prevent falls - Apply heating pad as needed for pain relief, but monitor skin for irritation - Follow up for scheduled appointment to discuss MRI results and treatment response Orders: Orders MR lumbar spine wo con 10/06/24 M48.061 - Spinal stenosis, lumbar region without neurogenic claudication Coding Level of Care Code Est Pt Level 4 (54141) Diagnoses Lumbar spinal stenosis M48.061
== END 2024-10-06 10:51 | disposition home or self-care (01) ==
LOC: HO.PMC 09:38
PROVIDERS: PCP Internal Medicine; Visit Provider Internal Medicine
DX: M48.061 Spinal stenosis, lumbar region without neurogenic claudication (principal); M79.18 Myalgia, other site
CPT/HCPCS: 20552; 99214

== ENCOUNTER → 2024-10-06 09:38 | Outpatient (BNVA) | payer MEDICARE, OTHER, SELFPAY | PROVIDERS: PCP Internal Medicine; Visit Provider Internal Medicine | DX: M79.18 Myalgia, other site (principal); M48.061 Spinal stenosis, lumbar region without neurogenic claudication | CPT/HCPCS: 20552; 99212; J0665 ==